=== PATIENT | female | born 1980 | race American Indian/Alaskan Native ===

== ENCOUNTER 2018-09-14 11:40 | Inpatient (IN) | payer OTHER ==
--- NOTE | 2018-09-14 11:56 | Emergency Department Report ---
Blank Doc - Documentation Documentation: 38 y o female presents with generallized burning constant abdominal pain x yes terday n/v and sweats labs,abd CT LMP: currently on
[2018-09-14 12:27] LABS: Hematocrit 34.3 % (30.3-42.9); Hemoglobin 11.7 gm/dl (10.1-14.3); Mean Corpuscular HGB Conc 34 % (30-34); Mean Corpuscular Volume 94 fl (79-97); Platelet Count 437 K/mm3 (140-440); Red Blood Count 3.65 M/mm3 (3.65-5.03); Red Cell Distribution Width 15.3 % (13.2-15.2)
[2018-09-14 12:41] LABS: BUN/Creatinine Ratio 21; Blood Urea Nitrogen 21 mg/dL (7-17); Calcium 8.7 mg/dL (8.4-10.2); Hemolysis Index 7
--- NOTE | 2018-09-14 14:15 | Cat Scan Report ---
CT ABDOMEN PELVIS WITHOUT CONTRAST: HISTORY: abdominal pain. COMPARISON: none. TECHNIQUE: Helical CT in 1.25mm intervals without IV contrast. Sagittal and coronal reconstructions. FINDINGS: Lung bases: There is minor segmental atelectasis in the right lower lobe. Liver: Normal. Biliary system: Normal. Pancreas: Normal. Spleen: Normal. Kidneys/ureters/bladder: Normal. Adrenal glands: Normal. Aorta: Normal. Intestines: No oral contrast was administered. There is no evidence for bowel obstruction. There is however moderate free fluid and free intraperitoneal air. Bowel perforation is suspected until proven otherwise. There appear to be multiple low collections in the pelvis which could represent early abscess formation. Appendix: Not confidently identified. Pelvic viscera: Poorly visualized secondary to the pelvic fluid collections and inflammation. No obvious abnormality. Ascites: None. Adenopathy: There are several borderline retroperitoneal lymph nodes which may be reactive in nature. No bulky adenopathy. Musculoskeletal: Intact. IMPRESSION: Moderate free air and fluid is identified in the abdomen concerning for bowel perforation. Possible early abscess formation in the pelvis. Recommend consultation with a surgeon. These findings were discussed with Dr. Elizondo in the emergency department at 1407 hrs.
[2018-09-14 14:22] LABS: Band Neutrophils # (Manual) 4.4 K/mm3; Basophils % (Manual) 0 % (0.0-1.8); Eosinophils % (Manual) 0 % (0.0-4.3); Monocytes % (Manual) 0 % (0.0-7.3); Total Cells Counted 100
[2018-09-14 14:23] LABS: Platelet Estimate Consistent w Auto; RBC Morphology Normal
[2018-09-14] MEDS ORDERED: DILAUDID IV STA (15:14)
[2018-09-14] MEDS ORDERED: NACL 0.9% 1000 ML IV ONE (15:14)
[2018-09-14] MEDS ORDERED: ZOFRAN IV ONE (15:21)
--- NOTE | 2018-09-14 15:21 | Emergency Department Report ---
ED General Adult HPI - General Chief complaint: Abdominal Pain Stated complaint: N/V/ABD PAIN Time Seen by Provider: 09/14/18 11:52 Source: patient, RN notes reviewed Mode of arrival: Wheelchair Limitations: Physical Limitation - History of Present Illness Initial comments: This is a 38-year-old female. The patient is not known to this provider sebastian mukherjee. The patient presents to the emergency room with a complaint of diffuse abdominal pain. The pain started approximately 2 weeks ago. It was initially suprapubic and in the bilateral lower quadrants. She reports that she was given antibiotics for a "urinary tract infection. She does not know antibiotics she was given. She reports that her pain really didn't get better. She reports having temporary dysuria, but her dysuria them resolved. Her abdominal pain is migratory, and now involving the entire abdominal region. It is sharp and aching. It increases with palpation. It decreases with rest. Question fever at home. Positive nausea and vomiting. Positive having normal bowel movements. No complaint of headache, neck pain, chest pain, ocular pain, oral discharge, focal extremity weakness or numbness. Patient never had pain like this before. -: Gradual Location: abdomen Severity scale (0 -10): 0 Quality: other Consistency: other Improves with: other Worsens with: other - Related Data Home Medications Medication Instructions Recorded Confirmed Last Taken Ciprofloxacin HCl [Ciprofloxacin 250 mg PO Q12H MDD FOR 5 DAYS 09/14/18 09/14/18 09/13/18 TAB] Lisinopril/Hydrochlorothiazide 1 tab PO QDAY 09/14/18 09/14/18 09/13/18 [Zestoretic 20-25 mg] metFORMIN [Glucophage] 500 mg PO BIDWM 09/14/18 09/14/18 09/13/18 Allergies Allergy/AdvReac Type Severity Reaction Status Date / Time No Known Allergies Allergy Unverified 09/14/18 11:54 ED Review of Systems ROS: Stated complaint: N/V/ABD PAIN Other details as noted in HPI Constitutional: fever, malaise, weakness Eyes: denies: eye discharge ENT: denies: epistaxis Respiratory: denies: cough Cardiovascular: denies: chest pain Gastrointestinal: abdominal pain, nausea, vomiting Genitourinary: dysuria Musculoskeletal: back pain Skin: denies: lesions Neurological: weakness Psychiatric: anxiety ED Past Medical Hx - Past Medical History Previous Medical History?: Yes Hx Hypertension: Yes Hx Diabetes: Yes - Surgical History Past Surgical History?: Yes Additional Surgical History: 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 - Social History Smoking Status: Never Smoker Substance Use Type: Alcohol - Medications Home Medications: Home Medications Medication Instructions Recorded Confirmed Last Taken Type Ciprofloxacin HCl [Ciprofloxacin 250 mg PO Q12H MDD FOR 5 DAYS 09/14/18 09/14/18 09/13/18 History TAB] Lisinopril/Hydrochlorothiazide 1 tab PO QDAY 09/14/18 09/14/18 09/13/18 History [Zestoretic 20-25 mg] metFORMIN [Glucophage] 500 mg PO BIDWM 09/14/18 09/14/18 09/13/18 History ED Physical Exam - General Limitations: Physical Limitation General appearance: alert, in distress, obese - Head Head exam: Present: atraumatic, normocephalic - Eye Eye exam: Present: normal appearance, EOMI - ENT ENT exam: Present: normal exam, normal orophraynx, mucous membranes moist, normal external ear exam - Neck Neck exam: Present: normal inspection, full ROM. Absent: tenderness, meningismus - Respiratory Respiratory exam: Present: normal lung sounds bilaterally. Absent: respiratory distress - Cardiovascular Cardiovascular Exam: Present: normal rhythm, tachycardia, normal heart sounds. Absent: systolic murmur, diastolic murmur, rubs, gallop - GI/Abdominal GI/Abdominal exam: Present: soft, tenderness, guarding, rebound. Absent: distended, pulsatile mass - Extremities Exam Extremities exam: Present: normal inspection, full ROM, other (2+ pulses noted in the bilateral upper, lower extremities. Compartments soft. No long bony tenderness. The pelvis is stable.). Absent: pedal edema, joint swelling, calf tenderness - Back Exam Back exam: Present: normal inspection - Neurological Exam Neurological exam: Present: alert, oriented X3, other (Extraocular movements intact. Tongue midline. No facial droop. Facial sensation intact to light touch in the V1, V2, V3 distribution bilaterally. 5 and 5 strength in 4 extremities.. Sensation is intact to light touch in 4 extremities.). Absent: motor sensory deficit - Psychiatric Psychiatric exam: Present: anxious - Skin Skin exam: Present: warm, dry, intact, normal color. Absent: rash ED Course Vital Signs 09/14/18 09/14/1819 11:52 12:43 14:20 Temperature 98.0 F 98.3 F Pulse Rate 114 H 107 H 124 H Respiratory 20 16 26 H Rate Blood Pressure 100/70 Blood Pressure 102/69 [Left] Blood Pressure 102/69 [Right] O2 Sat by Pulse 99 100 99 Oximetry 09/14/18 09/14/18 09/14/18 14:31 14:45 15:00 Temperature Pulse Rate 125 H 126 H 128 H Respiratory 51 H 51 H 54 H Rate Blood Pressure 120/81 120/81 115/75 Blood Pressure [Left] Blood Pressure [Right] O2 Sat by Pulse 98 97 93 Oximetry 09/14/18 09/14/18 09/14/18 15:15 15:31 15:45 Temperature Pulse Rate 127 H 128 H 127 H Respiratory 29 H 56 H 45 H Rate Blood Pressure 115/75 115/75 115/75 Blood Pressure [Left] Blood Pressure [Right] O2 Sat by Pulse 98 97 95 Oximetry 09/14/18 16:01 Temperature Pulse Rate 129 H Respiratory 29 H Rate Blood Pressure 114/74 Blood Pressure [Left] Blood Pressure [Right] O2 Sat by Pulse 95 Oximetry - Reevaluation(s) Reevaluation #1: 09/14/18 16:48 For initial diagnosis, including but not limited to: Perforation, obstruction, peritonitis, intra-abdominal abscess Assessment and plan: 38-year-old female with markedly tender abdomen, tachycardic, tachypnea, meets sepsis criteria. Patient resuscitated according to the sepsis pathway. CT scan of the abdomen and pelvis suggests free air with presumed pelvic abscesses. Discussed with general surgery on-call, Dr. Gipson, we have discussed the patient's history, physical, laboratory findings and CT scan findings, and I have requested emergent surgical consultation for evaluation. She indicates she will evaluate the patient. As per this hospital's policy, the patient will be admitted to the medical service, Dr. Aldana of the medical team to admit the patient. Discussed plan of care with patient and family who verbalized understanding. ED Medical Decision Making - Lab Data Result diagrams: 09/14/18 12:06 09/14/18 12:06 Vital Signs 09/14/18 09/14/18 09/14/18 11:52 12:43 14:20 Temperature 98.0 F 98.3 F Pulse Rate 114 H 107 H 124 H Respiratory 20 16 26 H Rate Blood Pressure 100/70 Blood Pressure 102/69 [Left] Blood Pressure 102/69 [Right] O2 Sat by Pulse 99 100 99 Oximetry 09/14/18 09/14/18 09/14/18 14:31 14:45 15:00 Temperature Pulse Rate 125 H 126 H 128 H Respiratory 51 H 51 H 54 H Rate Blood Pressure 120/81 120/81 115/75 Blood Pressure [Left] Blood Pressure [Right] O2 Sat by Pulse 98 97 93 Oximetry 09/14/18 09/14/18 09/14/18 15:15 15:31 15:45 Temperature Pulse Rate 127 H 128 H 127 H Respiratory 29 H 56 H 45 H Rate Blood Pressure 115/75 115/75 115/75 Blood Pressure [Left] Blood Pressure [Right] O2 Sat by Pulse 98 97 95 Oximetry 09/14/18 16:01 Temperature Pulse Rate 129 H Respiratory 29 H Rate Blood Pressure 114/74 Blood Pressure [Left] Blood Pressure [Right] O2 Sat by Pulse 95 Oximetry Lab Results 09/14/18 09/14/18 09/14/18 Range/Units 11:54 12:06 12:06 WBC 9.0 (4.5-11.0) K/mm3 RBC 3.65 (3.65-5.03) M/mm3 Hgb 11.7 (10.1-14.3) gm/dl Hct 34.3 (30.3-42.9) % MCV 94 (79-97) fl MCH 32 (28-32) pg MCHC 34 (30-34) % RDW 15.3 H (13.2-15.2) % Plt Count 437 (140-440) K/mm3 Add Manual Diff Complete Total Counted 100 Seg Neuts % (Manual) 39.0 L (40.0-70.0) % Band Neutrophils % 49.0 % Lymphocytes % (Manual) 9.0 L (13.4-35.0) % Reactive Lymphs % (Man) 0 % Monocytes % (Manual) 0 (0.0-7.3) % Eosinophils % (Manual) 0 (0.0-4.3) % Basophils % (Manual) 0 (0.0-1.8) % Metamyelocytes % 3.0 % Myelocytes % 0 % Promyelocytes % 0 % Blast Cells % 0 % Nucleated RBC % Not Reportable Seg Neutrophils # Man 3.5 (1.8-7.7) K/mm3 Band Neutrophils # 4.4 K/mm3 Lymphocytes # (Manual) 0.8 L (1.2-5.4) K/mm3 Abs React Lymphs (Man) 0.0 K/mm3 Monocytes # (Manual) 0.0 (0.0-0.8) K/mm3 Eosinophils # (Manual) 0.0 (0.0-0.4) K/mm3 Basophils # (Manual) 0.0 (0.0-0.1) K/mm3 Metamyelocytes # 0.3 K/mm3 Myelocytes # 0.0 K/mm3 Promyelocytes # 0.0 K/mm3 Blast Cells # 0.0 K/mm3 WBC Morphology Not Reportable Hypersegmented Neuts Not Reportable Hyposegmented Neuts Not Reportable Hypogranular Neuts Not Reportable Smudge Cells Not Reportable Toxic Granulation Not Reportable Toxic Vacuolation Not Reportable Dohle Bodies Not Reportable Pelger-Huet Anomaly Not Reportable Shaun Rods Not Reportable Platelet Estimate Consistent w auto Clumped Platelets Not Reportable Plt Clumps, EDTA Not Reportable Large Platelets Not Reportable Giant Platelets Not Reportable Platelet Satelliting Not Reportable Plt Morphology Comment Not Reportable RBC Morphology Normal Dimorphic RBCs Not Reportable Polychromasia Not Reportable Hypochromasia Not Reportable Poikilocytosis Not Reportable Anisocytosis Not Reportable Microcytosis Not Reportable Macrocytosis Not Reportable Spherocytes Not Reportable Pappenheimer Bodies Not Reportable Sickle Cells Not Reportable Target Cells Not Reportable Tear Drop Cells Not Reportable Ovalocytes Not Reportable Helmet Cells Not Reportable Miranda-Fairchild Bodies Not Reportable Sayre Rings Not Reportable [place] Cells Not Reportable Bite Cells Not Reportable Crenated Cell Not Reportable Elliptocytes Not Reportable Acanthocytes (Spur) Not Reportable Rouleaux Not Reportable Hemoglobin C Crystals Not Reportable Schistocytes Not Reportable Malaria parasites Not Reportable Clifford Bodies Not Reportable Hem Pathologist Commnt No Sodium 133 L (137-145) mmol/L Potassium 3.7 (3.6-5.0) mmol/L Chloride 93.3 L (98-107) mmol/L Carbon Dioxide 24 (22-30) mmol/L Anion Gap 19 mmol/L BUN 21 H (7-17) mg/dL Creatinine 1.0 (0.7-1.2) mg/dL Estimated GFR > 60 ml/min BUN/Creatinine Ratio 21 % Glucose 353 H (65-100) mg/dL POC Glucose 336 H (70-105) Lactic Acid (0.7-2.0) mmol/L Calcium 8.7 (8.4-10.2) mg/dL HCG, Qual (Negative) 09/14/18 09/14/18 Range/Units 12:06 15:20 WBC (4.5-11.0) K/mm3 RBC (3.65-5.03) M/mm3 Hgb (10.1-14.3) gm/dl Hct (30.3-42.9) % MCV (79-97) fl MCH (28-32) pg MCHC (30-34) % RDW (13.2-15.2) % Plt Count (140-440) K/mm3 Add Manual Diff Total Counted Seg Neuts % (Manual) (40.0-70.0) % Band Neutrophils % % Lymphocytes % (Manual) (13.4-35.0) % Reactive Lymphs % (Man) % Monocytes % (Manual) (0.0-7.3) % Eosinophils % (Manual) (0.0-4.3) % Basophils % (Manual) (0.0-1.8) % Metamyelocytes % % Myelocytes % % Promyelocytes % % Blast Cells % % Nucleated RBC % Seg Neutrophils # Man (1.8-7.7) K/mm3 Band Neutrophils # K/mm3 Lymphocytes # (Manual) (1.2-5.4) K/mm3 Abs React Lymphs (Man) K/mm3 Monocytes # (Manual) (0.0-0.8) K/mm3 Eosinophils # (Manual) (0.0-0.4) K/mm3 Basophils # (Manual) (0.0-0.1) K/mm3 Metamyelocytes # K/mm3 Myelocytes # K/mm3 Promyelocytes # K/mm3 Blast Cells # K/mm3 WBC Morphology Hypersegmented Neuts Hyposegmented Neuts Hypogranular Neuts Smudge Cells Toxic Granulation Toxic Vacuolation Dohle Bodies Pelger-Huet Anomaly Shaun Rods Platelet Estimate Clumped Platelets Plt Clumps, EDTA Large Platelets Giant Platelets Platelet Satelliting Plt Morphology Comment RBC Morphology Dimorphic RBCs Polychromasia Hypochromasia Poikilocytosis Anisocytosis Microcytosis Macrocytosis Spherocytes Pappenheimer Bodies Sickle Cells Target Cells Tear Drop Cells Ovalocytes Helmet Cells Miranda-Fairchild Bodies Sayre Rings [place] Cells Bite Cells Crenated Cell Elliptocytes Acanthocytes (Spur) Rouleaux Hemoglobin C Crystals Schistocytes Malaria parasites Clifford Bodies Hem Pathologist Commnt Sodium (137-145) mmol/L Potassium (3.6-5.0) mmol/L Chloride (98-107) mmol/L Carbon Dioxide (22-30) mmol/L Anion Gap mmol/L BUN (7-17) mg/dL Creatinine (0.7-1.2) mg/dL Estimated GFR ml/min BUN/Creatinine Ratio % Glucose (65-100) mg/dL POC Glucose (70-105) Lactic Acid 2.80 H* (0.7-2.0) mmol/L Calcium (8.4-10.2) mg/dL HCG, Qual Negative (Negative) - EKG Data -: EKG Interpreted by Hi EKG shows normal: sinus rhythm Rate: tachycardia - EKG Data 09/14/18 16:46 This is a sinus tachycardia, 100, normal axis, QTC within normal limits, there is atrial enlargement, this is an abnormal EKG, there is no endorsement of chest pain, this is not consistent with ST elevation myocardial infarction. - Radiology Data Radiology results: report reviewed, image reviewed Print Report Referring Physician: POLINA HALL Patient Name: BARBARA SLATER Date of : 1980 Sex: Female Report Date: 2018-09-14 Report Status: Finalized Findings [facility] [address] [place] [address] Cat Scan Report Signed Patient: BARBARA SLATER MR# : [id number] : 1980 Acct:[id number] Age/Sex: 38 / F ADM Date: 09/14/18 Loc: ED Attending Dr: Ordering Physician: JUDY WEAVER Date of Service: 09/14/18 Procedure(s): CT abdomen pelvis con Accession Number(s): [id number] cc: JUDY WEAVER CT ABDOMEN PELVIS WITHOUT CONTRAST: HISTORY: abdominal pain. COMPARISON: none. TECHNIQUE: Helical CT in 1.25mm intervals without IV contrast. Sagittal and coronal reconstructions. FINDINGS: Lung bases: There is minor segmental atelectasis in the right lower lobe. Liver: Normal. Biliary system: Normal. Pancreas: Normal. Spleen: Normal. Kidneys/ureters/bladder: Normal. Adrenal glands: Normal. Aorta: Normal. Intestines: No oral contrast was administered. There is no evidence for bowel obstruction. There is however moderate free fluid and free intraperitoneal air. Bowel perforation is suspected until proven otherwise. There appear to be multiple low collections in the pel vis which could represent early abscess formation. Appendix: Not confidently identified. Pelvic viscera: Poorly visualized secondary to the pelvic fluid collections and inflammation. No obvious abnormality. Ascites: None. Adenopathy: There are several borderline retroperitoneal lymph nodes which may be reactive in nature. No bulky adenopathy. Musculoskeletal: Intact. IMPRESSION: Moderate free air and fluid is identified in the abdomen concerning for bowel perforation. Possible early abscess formation in the pelvis. Recommend consultation with a surgeon. These findings were discussed with Dr. Elizondo in the emergency department at 1407 hrs. Critical Care Time: Yes Critical care time in (mins) excluding proc time.: 35 Critical care attestation.: If time is entered above; I have spent that time in minutes in the direct care of this critically ill patient, excluding procedure time. ED Disposition Clinical Impression: Perforated bowel, Peritonitis (acute) generalized Disposition: DC-09 OP ADMIT IP TO THIS HOSP Is pt being admited?: Yes Condition: Stable
--- NOTE | 2018-09-14 15:23 | History and Physical Report ---
History of Present Illness Chief complaint: My stomach hurts History of present illness: 38 YO Female with HTN, DM, Obesity presents to ED for evaluation. Pt states that she has experienced pain in her abdomen over the past 2 days with worsening symptoms over the past 1 day. Pt was seen by her PCP on the day prior to admission and treated with Antibiotic therapy for presumed infection. Pt reports worsening abdominal pain. Pt states that pain is currently 8/10, constant, worse with palpation, worse wit movement, relieved somewhat with nonmovement. EMS notified and upon arrival the patient was found to be in distress and transported to [facility]. Pt seen and evaluated in ED and underwent CT Abdomen/Pelvis which revealed free air with suspected perforation complicated by peritonitis. Surgery team consulted in ED. Pt initiated on IV antibiotic therapy and admitted to surgical floor. No prior admission for review. No listed medication at time of admission for reconciliation. Pt denies fever, chills, CP, Palpitations, Trauma, BRBPR, Productive cough, hemoptysis, ingestion of food/water from new/different sources, loose stools, skin rash, unintentional weight loss, night sweats, or recent ill contacts. Past History Past Medical History: diabetes, hypertension, other (Obesity) Past Surgical History: Other (Right Index Finger amputation) Social history: , lives with family. denies: smoking, alcohol abuse, prescription drug abuse Family history: diabetes, hypertension Medications and Allergies Allergies Allergy/AdvReac Type Severity Reaction Status Date / Time No Known Allergies Allergy Unverified 09/14/18 11:54 Active Meds: Active Medications Metronidazole (Flagyl 500 Mg/100 Ml) 500 mg in 100 mls @ 100 mls/hr IV NOW AYLEEN; Protocol Cefepime HCl (Maxipime/Ns 2 Gm/100 Ml) 2 gm in 100 mls @ 200 mls/hr IV NOW AYLEEN; Protocol Review of Systems Constitutional: no weight loss, no weight gain, no fever, no chills Ears, nose, mouth and throat: no ear pain, no ear discharge, no tinnitis, no decreased hearing, no nasal congestion, no nasal discharge Breasts: no change in shape, no swelling, no mass Cardiovascular: no chest pain, no orthopnea, no palpitations, no rapid/irregular heart beat, no syncope Respiratory: no cough, no cough with sputum, no excessive sputum, no hemoptysis, no shortness of breath Gastrointestinal: abdominal pain, no nausea, no vomiting, no diarrhea, no constipation, no change in bowel habits, no BRBPR, no melena Genitourinary Female: no pelvic pain, no flank pain, no menorrhagia, no dysuria, no urinary frequency, no urgency, no stress incontinence Rectal: no pain, no incontinence, no bleeding Musculoskeletal: no neck stiffness, no neck pain, no shooting arm pain, no low back pain, no shooting leg pain Integumentary: no rash, no pruritis, no redness, no sores, no wounds Neurological: no paralysis, no parathesias, no tingling, no seizures Psychiatric: no anxiety, no memory loss, no change in sleep habits, no sleep disturbances, no insomnia, no hypersomnia, no change in libido, no suicidal ideation, no disorientation Endocrine: no cold intolerance, no heat intolerance, no polyphagia, no excessive thirst, no polydipsia Hematologic/Lymphatic: no easy bruising, no easy bleeding Allergic/Immunologic: no urticaria, no allergic rhinitis, no wheezing Exam - Constitutional Vitals: Temp Pulse Resp BP Pulse Ox 98.2 F 125 H 51 H 120/81 98 09/14/18 12:43 09/14/18 14:31 09/14/18 14:31 09/14/18 14:31 09/14/18 14:31 General appearance: Present: mild distress - EENT Eyes: Present: PERRL ENT: hearing intact, clear oral mucosa - Neck Neck: Present: supple, normal ROM - Respiratory Respiratory effort: normal Respiratory: bilateral: CTA - Cardiovascular Heart Sounds: Present: S1 & S2. Absent: rub, click - Extremities Extremities: pulses symmetrical, No edema Peripheral Pulses: within normal limits - Abdominal General gastrointestinal: Present: soft, tender, distended, hypoactive bowel sounds. Absent: hepatomegaly, splenomegaly, mass, hernia Localized gastrointestinal: tender: diffuse, guarding: diffuse, rebound: diffuse Female genitourinary: Present: normal - Integumentary Integumentary: Present: clear, warm, dry - Musculoskeletal Musculoskeletal: gait normal, strength equal bilaterally - Psychiatric Psychiatric: appropriate mood/affect, intact judgment & insight - Neurologic Neurologic: CNII-XII intact, moves all extremities Results - Labs CBC & Chem 7: 09/14/18 12:06 09/14/18 12:06 Labs: Abnormal lab results 09/14/18 09/14/18 09/14/18 Range/Units 11:54 12:06 12:06 RDW 15.3 H (13.2-15.2) % Seg Neuts % (Manual) 39.0 L (40.0-70.0) % Lymphocytes % (Manual) 9.0 L (13.4-35.0) % Lymphocytes # (Manual) 0.8 L (1.2-5.4) K/mm3 Sodium 133 L (137-145) mmol/L Chloride 93.3 L (98-107) mmol/L BUN 21 H (7-17) mg/dL Glucose 353 H (65-100) mg/dL POC Glucose 336 H (70-105) Assessment and Plan - Patient Problems (1) Perforated bowel Current Visit: Yes Status: Acute Plan to address problem: Surgery consulted in ED, CT Abdomen pelvis, serial abdominal exam, pain control. IVF resuscitation, NPO, bowel rest, gastric decompression as per surgical team. (2) Peritonitis (acute) generalized Current Visit: Yes Status: Acute Plan to address problem: IV antibiotic therapy, surgery consulted in ED, CT Abdomen/Pelvis, serial abdominal exam, CBC, CMP (3) HTN (hypertension) Current Visit: Yes Status: Acute Qualifiers: Hypertension type: essential hypertension Qualified Code(s): I10 - Essential (primary) hypertension Plan to address problem: Monitor bp q shfit, supportive care, continue medical management. (4) Diabetes Current Visit: Yes Status: Acute Plan to address problem: ADA diet, insulin, accu check, hypoglycemia protocol (5) DVT prophylaxis Current Visit: Yes Status: Acute Plan to address problem: SCD to BLE while in bed, prophylactic heparin postoperatively.
[2018-09-14] MEDS ORDERED: PROVENTIL IH PRN (15:57)
[2018-09-14] MEDS ORDERED: MORPHINE IV PRN (15:57)
[2018-09-14] MEDS ORDERED: D50W (25GM) Syringe IV PRN (15:59)
[2018-09-14] MEDS ORDERED: FLAGYL 500 MG/100 ML 500 MG/100 ML BAG IV SCH (16:00)
--- NOTE | 2018-09-14 16:46 | Consultation ---
History of Present Illness Consult date: 09/14/18 Reason for consult: abdominal pain Chief complaint: abdominal pain that started two weeks ago. - History of present illness History of present illness: 38 year old female presented to ER with worsening abdominal pain. She says it started about two weeks ago and was localized to her super-pubic area. At the time she had dysuria and went to the doctor thinking she had a UTI. She said all they were able to find was glucose in her urine. She went home and said over the next week or so the pain got progressively worse, and only partially subsided when she smoked marijuana. She returned to the doctor yesterday and they placed her on antibiotics saying that she had an elevated WBC. She has been having bowel movements and only vomited once this morning. The pain is 10/10 and all over currently. she has never had this pain and denies a history of gastric ulcer, frequent NSAID use, cocaine use, cigarette smoking. She had a CT scan done today that showed free fluid and air consistent with bowel perforation. Past History Past Medical History: diabetes, hypertension, other (Obesity) Past Surgical History: Other (Right Index Finger amputation) Social history: , lives with family, other (marijuana use). denies: smoking, alcohol abuse, prescription drug abuse Family history: cancer, diabetes, hypertension Medications and Allergies Allergies Allergy/AdvReac Type Severity Reaction Status Date / Time No Known Allergies Allergy Unverified 09/14/18 11:54 Home Medications Medication Instructions Recorded Confirmed Last Taken Type Ciprofloxacin HCl [Ciprofloxacin 250 mg PO Q12H MDD FOR 5 DAYS 09/14/18 09/14/18 09/13/18 History TAB] Lisinopril/Hydrochlorothiazide 1 tab PO QDAY 09/14/18 09/14/18 09/13/18 History [Zestoretic 20-25 mg] metFORMIN [Glucophage] 500 mg PO BIDWM 09/14/18 09/14/18 09/13/18 History Active Meds: Active Medications Albuterol (Proventil) 2.5 mg IH Q3HRT PRN PRN Reason: Shortness Of Breath Dextrose (D50w (25gm) Syringe) 50 ml IV PRN PRN PRN Reason: Hypoglycemia Heparin Sodium (Porcine) (Heparin) 5,000 unit SUB-Q Q12HR AYLEEN Metronidazole (Flagyl 500 Mg/100 Ml) 500 mg in 100 mls @ 100 mls/hr IV NOW AYLEEN; Protocol Last Admin: 09/14/18 15:47 Dose: 100 mls/hr Documented by: Cefepime HCl (Maxipime/Ns 2 Gm/100 Ml) 2 gm in 100 mls @ 200 mls/hr IV NOW AYLEEN; Protocol Sodium Chloride (Nacl 0.9% 1000 Ml) 2,000 mls @ 125 mls/hr IV DIRECT AYLEEN Cefepime HCl (Maxipime/Ns 2 Gm/100 Ml) 2 gm in 100 mls @ 200 mls/hr IV Q8HR AYLEEN; Protocol Metronidazole (Flagyl 500 Mg/100 Ml) 500 mg in 100 mls @ 100 mls/hr IV Q8HR AYLEEN; Protocol Insulin Human Lispro (Humalog) 0 unit SUB-Q Q6HR AYLEEN; Protocol Miscellaneous Medication (Lisinopril/Hydrochlorothiazide [Zestoretic 20-25 Mg]) 1 tab PO QDAY AYLEEN Morphine Sulfate (Morphine) 2 mg IV Q4H PRN PRN Reason: Pain, Moderate (4-6) Sodium Chloride (Sodium Chloride Flush Syringe 10 Ml) 10 ml IV BID AYLEEN Sodium Chloride (Sodium Chloride Flush Syringe 10 Ml) 10 ml IV PRN PRN PRN Reason: LINE FLUSH Review of Systems - Constitutional poor appetite Exam Vital Signs Temp Pulse Resp BP Pulse Ox 98.0 F 114 H 20 100/70 99 09/14/18 11:52 09/14/18 11:52 09/14/18 11:52 09/14/18 11:52 09/14/18 11:52 - General physical appearance Positive: moderate distress - Respiratory Positive: normal respiratory effort - Extremities Extremities: no ischemia - Abdomen Abdomen: Present: soft, tender, distended, guarding, other (generalized tenderness to palpation) Hernia: none - Neurologic Neurologic: alert and oriented to time, place and person, motor strength and sensation are grossly intact - Psychiatric Psychiatric: appropriate mood/affect Results - Labs 09/14/18 12:06 09/14/18 12:06 Abnormal lab results 09/14/18 09/14/18 09/14/18 Range/Units 11:54 12:06 12:06 RDW 15.3 H (13.2-15.2) % Seg Neuts % (Manual) 39.0 L (40.0-70.0) % Lymphocytes % (Manual) 9.0 L (13.4-35.0) % Lymphocytes # (Manual) 0.8 L (1.2-5.4) K/mm3 Sodium 133 L (137-145) mmol/L Chloride 93.3 L (98-107) mmol/L BUN 21 H (7-17) mg/dL Glucose 353 H (65-100) mg/dL POC Glucose 336 H (70-105) Lactic Acid (0.7-2.0) mmol/L 09/14/18 Range/Units 15:20 RDW (13.2-15.2) % Seg Neuts % (Manual) (40.0-70.0) % Lymphocytes % (Manual) (13.4-35.0) % Lymphocytes # (Manual) (1.2-5.4) K/mm3 Sodium (137-145) mmol/L Chloride (98-107) mmol/L BUN (7-17) mg/dL Glucose (65-100) mg/dL POC Glucose (70-105) Lactic Acid 2.80 H* (0.7-2.0) mmol/L Diabetes panel 09/14/18 Range/Units 12:06 Sodium 133 L (137-145) mmol/L Potassium 3.7 (3.6-5.0) mmol/L Chloride 93.3 L (98-107) mmol/L Carbon Dioxide 24 (22-30) mmol/L BUN 21 H (7-17) mg/dL Creatinine 1.0 (0.7-1.2) mg/dL Glucose 353 H (65-100) mg/dL Calcium 8.7 (8.4-10.2) mg/dL Calcium panel 09/14/18 Range/Units 12:06 Calcium 8.7 (8.4-10.2) mg/dL Pituitary panel 09/14/18 Range/Units 12:06 Sodium 133 L (137-145) mmol/L Potassium 3.7 (3.6-5.0) mmol/L Chloride 93.3 L (98-107) mmol/L Carbon Dioxide 24 (22-30) mmol/L BUN 21 H (7-17) mg/dL Creatinine 1.0 (0.7-1.2) mg/dL Glucose 353 H (65-100) mg/dL Calcium 8.7 (8.4-10.2) mg/dL Adrenal panel 09/14/18 Range/Units 12:06 Sodium 133 L (137-145) mmol/L Potassium 3.7 (3.6-5.0) mmol/L Chloride 93.3 L (98-107) mmol/L Carbon Dioxide 24 (22-30) mmol/L BUN 21 H (7-17) mg/dL Creatinine 1.0 (0.7-1.2) mg/dL Glucose 353 H (65-100) mg/dL Calcium 8.7 (8.4-10.2) mg/dL - Imaging CT scan - abdomen: pending, image reviewed, other (CT scan with free fluid and air consistent with bowel perforation) Assessment and Plan 1. peritonitis- bowel perforation? will take for abdominal exploration today, in the meantime aggressive IV fluid hydration ,abx. Pt is consented. 2. diabetes, hyperglycemia insulin therapy and hydration
[2018-09-14] MEDS ORDERED: MAXIPIME/NS 2 GM/100 ML 2 GM/100 ML BAG IV SCH ×2 (17:00→22:00)
--- NOTE | 2018-09-14 17:08 | Anesthesia Consultation ---
Anesthesia Consult and Med Hx Date of service: 09/14/18 - Airway Anesthetic Teeth Evaluation: Good ROM Head & Neck: Adequate Mental/Hyoid Distance: Adequate Mallampati Class: Class II Intubation Access Assessment: Probably Good - Pulmonary Exam CTA: Yes - Cardiac Exam Cardiac Exam: RRR - Pre-Operative Health Status ASA Pre-Surgery Classification: ASA3, Emergency Proposed Anesthetic Plan: General - Pulmonary Hx Smoking: Yes (Marijuana) - Cardiovascular System Hx Hypertension: Yes - Endocrine Hx Non-Insulin Dependent Diabetes: Yes - Other Systems Hx Alcohol Use: Yes Hx Substance Use: Yes (marijuana ) Hx Obesity: Yes
--- NOTE | 2018-09-14 17:11 | Anesthesia Day of Surgery ---
Anesthesia Day of Surgery - Day of Surgery Patient Examined: Yes Patient H&P Reviewed: Yes Patient is NPO: No (2-3 glasses of water at 1400 to 1500)
[2018-09-14] MEDS ORDERED: MORPHINE ONE (17:26)
[2018-09-14] MEDS ORDERED: ZOFRAN IV PRN (18:18)
[2018-09-14] MEDS: HumaLOG SUB-Q SCH (19:09)
[2018-09-14] MEDS: NACL 0.9% 1000 ML 2,000 ML IV SCH (19:10)
[2018-09-14] MEDS ORDERED: MARCAINE-EPI 0.5%-1:200,000 INFILTRATI ONE ×2 (19:39→21:15)
[2018-09-14] MEDS ORDERED: XYLOCAINE 1% 20 mL ONE (19:39)
[2018-09-14] MEDS ORDERED: DIPRIVAN 10 MG/ML IV ONE (19:41)
[2018-09-14] MEDS ORDERED: ZEMURON IV ONE ×2 (19:42→23:12)
[2018-09-14] MEDS ORDERED: SUBLIMAZE ONE ×2 (19:44→23:40)
[2018-09-14] MEDS ORDERED: HumuLIN R ONE ×2 (20:26→23:47)
[2018-09-14] MEDS ORDERED: ZOSYN/NS 4.5GM/100ML 4.5 GM/100 ML VIAL IV ONE (20:45)
[2018-09-14] MEDS ORDERED: ALBURX 25% (ALBUMIN) IV ONE (21:13)
[2018-09-14] MEDS ORDERED: Vasostrict ONE (21:14)
[2018-09-14] MEDS ORDERED: XYLOCAINE 1% 20 mL INFILTRATI ONE (21:15)
[2018-09-14] MEDS ORDERED: NACL 0.9% IR ONE (21:16)
[2018-09-14] MEDS ORDERED: NACL P/F VIAL (10 ML) 10 ML ONE (21:53)
[2018-09-14] MEDS ORDERED: BACITRACIN ONE (21:54)
[2018-09-14] MEDS ORDERED: NACL P/F VIAL (10 ML) IV ONE (21:57)
[2018-09-14] MEDS ORDERED: SODIUM CHLORIDE FLUSH SYRINGE 10 ML IV SCH (22:00)
[2018-09-14] MEDS ORDERED: BACITRACIN IR ONE (22:22)
[2018-09-14] MEDS ORDERED: BRIDION IV ONE (23:06)
[2018-09-14] MEDS ORDERED: XYLOCAINE MPF 2% ONE (23:12)
[2018-09-14] MEDS: SUBLIMAZE IV PRN ×2 (23:40→23:55)
[2018-09-14] MEDS ORDERED: HumuLIN R IV ONE (23:45)
--- NOTE | 2018-09-14 23:54 | Operative Report ---
Operative Report Operative Report: DATE: 09/14/2018 SURGEON: BRISEIDA AYALA MD CO-SURGEON: ALFREDO HARRELL DO PROCEDURE: EXPLORATORY LAPAROTOMY, ABDOMINAL WASH OUT AND DRAIN PLACEMENT PRE-OP DX: PERITONITIS, PERFORATED VISCOUS POST-OP DX: PURULENT PERITONITIS, HINCHE STAGE 3 DIVERTICULITIS FINDINGS: FREE PURULENT PERITONITIS WITH PELVIC ABSCESS CAVITY, NO ACTIVE PERFORATION INDICATION: 38 YO FEMALE PRESENTED TO ED WITH A 2 WEEK HX OF WORSENING ABDOMINAL PAIN. CT SCAN SHOWED FREE AIR AND FLUID IN THE ABDOMEN C/W BOWEL PERFORATION. SHE WAS CONSENTED AND URGENTLY TAKEN TO THE OR AFTER INFORMED CONSENT WAS OBTAINED. DETAILS: PT WAS TAKEN TO THE OR AND GENERAL ANESTHESIA WAS INDUCED WITH ENDOTRACHEAL INTUBATION. SCDS WERE PLACED, A WALKER CATHETER WAS INSERTED UNDER STERILE CONDITIONS, AND HER ABDOMEN WAS PREPPED AND DRAPED IN STERILE FASHION AFTER HER ARMS WERE TUCKED BY HER SIDED AND ALL PRESSURE POINTS PADDED. AN ATTEMPT WAS MADE TO INSUFLATE THE ABDOMEN FOR DIAGNOSTIC LAPAROSCOPY, BUT WE WERE UNSUCCESSFUL AFTER SEVERAL FAILED PASSES OF THE VERRESS NEEDLE, IN BOTH PALMERS POINT AND AT THE UMBILICUS. AT ONE POINT MURKY FLUID WAS SEEN IN THE VERRESS NEEDLE. IT WAS DECIDED AT THAT POINT TO CONVERT TO OPEN. A 10 BLADE SCALPEL WAS USED TO MAKE A VERTICAL MIDLINE INCISION. ELECTROCAUTERY WAS USED DOWN TO THE FASCIA. SCISSORS WERE USED TO ENTER THE PERITONEUM. THE INCISION WAS EXTENDED A COUPLE CENTIMETERS BELOW THE XIPHOID AND EXTENDED TO THE SUPRA-PUBIC AREA. IT WAS NOTED THAT THE OMENTUM WAS CAKED AROUND THE SMALL BOWEL, AND THERE WAS OVER A LITER OF FREE PURULENT FLUID THAT WAS ASPIRATED AND A CULTURE WAS TAKEN. THE OMENTUM AND TRANSVERSE COLON WERE LIFTED CEPHALED AND THERE WAS NOTED TO BE A LARGE ABSCESS CAVITY IN THE PELVIS BETWEEN THE RECTUM AND THE BLADDER. THE PROXIMAL RECTUM, SIGMOID COLON, CECUM, APPENDIX, AND TERMINAL ILEUM WERE EXAMINED AND FOUND TO BE SOFT, INTACT, AND FREE OF PERFORATION, CONSISTENT WITH HEATHY TISSUE. TO LOOK FOR A PERFORATION THAT MAY HAVE BEEN SMALL AND TUCKED BEHIND SOME MATTED INFLAMMATORY TISSUE, A WALKER CATHETER WAS INSERTED IN THE RECTUM. THE BALLOON WAS FULLY INFLATED AND AIR WAS INJECTED INTO THE RECTUM AND SIGMOID COLON AFTER SALINE FILLED THE PELVIC CAVITY. THERE WERE NO BUBBLES SEEN IN THE SALINE, INDICATING NO LARGE OPEN DEFECT. AT THIS POINT IT WAS DECIDED TO IRRIGATE THE ABDOMINAL CAVITY WITH WARM SALINE MIXED WITH BACITRACIN, AND A DRAIN WAS PLACED IN THE PELVIS AND EXITED OUT OF THE RIGHT SIDE. THE FASCIA WAS CLOSED WITH A RUNNING #1 PDS, AND LOOSE KAY AT THE SKIN WITH PLAIN PACKING IN BETWEEN THE KAY. AN NGT WAS INSERTED AND CONFIRMED IN GOOD POSITION PRIOR TO CLOSING. PATIENT WAS AWOKEN, EXTUBATED AND TAKEN TO RECOVERY IN STABLE CONDITION. ALL COUNTS WERE CORRECT. EBL: 50CC COMPLICATIONS: NONE IMMEDIATE ANESTHESIA: GETA
[2018-09-15] MEDS ORDERED: NACL 0.9% 1000 ML 1,000 ML ONE (00:08)
[2018-09-15] MEDS: SUBLIMAZE IV PRN (00:20)
[2018-09-15] MEDS ORDERED: SUBLIMAZE ONE (00:21)
[2018-09-15 03:08] LABS: Hemoglobin 10.9 gm/dl (10.1-14.3); Mean Corpuscular HGB Conc 32 % (30-34); Mean Corpuscular Volume 97 fl (79-97); Platelet Count 399 K/mm3 (140-440); Red Cell Distribution Width 15.7 % (13.2-15.2)
[2018-09-15 03:41] LABS: Alanine Aminotransferase 169 units/L (7-56); BUN/Creatinine Ratio 21; Blood Urea Nitrogen 19 mg/dL (7-17); Calcium 6.8 mg/dL (8.4-10.2); Hemolysis Index 0
[2018-09-15 04:42] LABS: Band Neutrophils # (Manual) 5.5 K/mm3; Basophils % (Manual) 0 % (0.0-1.8); Eosinophils % (Manual) 0 % (0.0-4.3); Myelocytes # (Manual) 0.2 K/mm3; Total Cells Counted 100
[2018-09-15 04:48] LABS: Crenated RBC 1+; Dohle Bodies 1+
[2018-09-15 04:49] LABS: Large Platelets 1+
[2018-09-15 04:50] LABS: Anisocytosis 1+; Platelet Clumps Few; Platelet Estimate Consistent w Auto
--- NOTE | 2018-09-15 06:53 | Post Anesthesia Evaluation ---
- Post Anesthesia Evaluation Patient Participated: Yes Airway Patent: Yes Stable Respiratory Function: Yes Nausea/Vomiting: No Temp > 96.8F: Yes Pain Manageable: Yes Adequeate Hydration: Yes Anesthesia Complications: No Block Receding Appropriately: Not Applicable Patient on Ventilator: No
[2018-09-15] MEDS ORDERED: TORADOL IV PRN (07:25)
[2018-09-15] MEDS: HumaLOG SUB-Q SCH ×3 (08:33→18:31)
[2018-09-15] MEDS: FLAGYL 500 MG/100 ML 500 MG/100 ML BAG IV SCH ×3 (08:36→21:30)
[2018-09-15] MEDS ORDERED: NACL 0.9% 1000 ML 1,000 ML IV ONE (09:30)
[2018-09-15] MEDS ORDERED: HCTZ PO SCH (10:00)
[2018-09-15] MEDS ORDERED: NON-FORMULARY (Lisinopril/Hydrochlorothiazide [Zestoretic 20-25 Mg] 1 TAB) PO SCH (10:00)
[2018-09-15] MEDS ORDERED: ZESTRIL PO SCH (10:00)
[2018-09-15] MEDS: MORPHINE IV PRN ×2 (10:22→21:25)
[2018-09-15] MEDS: ZOSYN/NS 4.5GM/100ML 4.5 GM/100 ML VIAL IV SCH ×3 (11:12→21:31)
--- NOTE | 2018-09-15 11:55 | Progress Note ---
Assessment and Plan A: POD#1 s/p ex lap with abdominal washout for purulent peritonitis secondary to perforated diverticulitis. stable, afebrile. persistent tachycardia likely secondary to SIRS. continue abx, hydration, NGT uncontrolled hyperglycemia and diabetes. continue insulin per primary. advise patient she will likely need more aggressive diabetes management upon discharge. Subjective Date of service: 09/15/18 Patient Reports: Positive: pain is less (no acute events overnight) Objective Vital Signs - 12hr 09/14/18 09/15/18 09/15/18 23:55 00:00 00:15 Temperature Pulse Rate 126 H 128 H Respiratory 16 17 21 Rate Blood Pressure 121/78 124/85 O2 Sat by Pulse 95 97 Oximetry 09/15/18 09/15/18 09/15/18 00:20 00:30 00:40 Temperature Pulse Rate 125 H Respiratory 17 18 17 Rate Blood Pressure 135/86 O2 Sat by Pulse 95 Oximetry 09/15/18 09/15/18 00:55 04:00 Temperature 98.6 F Pulse Rate Respiratory 15 Rate Blood Pressure O2 Sat by Pulse Oximetry - General physical appearance well developed, no distress - Respiratory normal expansion, normal respiratory effort - Abdomen soft, other (obese, dressing c/d/i, appropriately tender to palpation, QUYEN drain sero-sanguinous) - Labs 09/15/18 02:30 09/15/18 02:30 Diabetes panel 09/14/18 09/15/18 Range/Units 12:06 02:30 Sodium 133 L 141 D (137-145) mmol/L Potassium 3.7 3.6 (3.6-5.0) mmol/L Chloride 93.3 L 108.3 H (98-107) mmol/L Carbon Dioxide 24 17 L D (22-30) mmol/L BUN 21 H 19 H (7-17) mg/dL Creatinine 1.0 0.9 (0.7-1.2) mg/dL Glucose 353 H 217 H (65-100) mg/dL Calcium 8.7 6.8 L D (8.4-10.2) mg/dL AST 322 H (5-40) units/L ALT 169 H (7-56) units/L Alkaline Phosphatase 67 (35-129) units/L Total Protein 5.4 L (6.3-8.2) g/dL Albumin 2.0 L (3.9-5) g/dL Calcium panel 09/14/18 09/15/18 Range/Units 12:06 02:30 Calcium 8.7 6.8 L D (8.4-10.2) mg/dL Albumin 2.0 L (3.9-5) g/dL Pituitary panel 09/14/18 09/15/18 Range/Units 12:06 02:30 Sodium 133 L 141 D (137-145) mmol/L Potassium 3.7 3.6 (3.6-5.0) mmol/L Chloride 93.3 L 108.3 H (98-107) mmol/L Carbon Dioxide 24 17 L D (22-30) mmol/L BUN 21 H 19 H (7-17) mg/dL Creatinine 1.0 0.9 (0.7-1.2) mg/dL Glucose 353 H 217 H (65-100) mg/dL Calcium 8.7 6.8 L D (8.4-10.2) mg/dL Adrenal panel 09/14/18 09/15/18 Range/Units 12:06 02:30 Sodium 133 L 141 D (137-145) mmol/L Potassium 3.7 3.6 (3.6-5.0) mmol/L Chloride 93.3 L 108.3 H (98-107) mmol/L Carbon Dioxide 24 17 L D (22-30) mmol/L BUN 21 H 19 H (7-17) mg/dL Creatinine 1.0 0.9 (0.7-1.2) mg/dL Glucose 353 H 217 H (65-100) mg/dL Calcium 8.7 6.8 L D (8.4-10.2) mg/dL Total Bilirubin 3.30 H (0.1-1.2) mg/dL AST 322 H (5-40) units/L ALT 169 H (7-56) units/L Alkaline Phosphatase 67 (35-129) units/L Total Protein 5.4 L (6.3-8.2) g/dL Albumin 2.0 L (3.9-5) g/dL
[2018-09-15 12:02] LABS: Hematocrit 31.2 % (30.3-42.9); Mean Corpuscular HGB Conc 32 % (30-34); Mean Corpuscular Volume 97 fl (79-97); Platelet Count 381 K/mm3 (140-440); Red Blood Count 3.21 M/mm3 (3.65-5.03)
[2018-09-15 12:28] LABS: BUN/Creatinine Ratio 26; Blood Urea Nitrogen 18 mg/dL (7-17); Hemolysis Index 10
[2018-09-15 12:32] LABS: Calcium 5.3 mg/dL (8.4-10.2)
[2018-09-15 13:00] LABS: Anisocytosis 1+; Band Neutrophils # (Manual) 13.8 K/mm3; Basophils % (Manual) 0 % (0.0-1.8); Eosinophils % (Manual) 0 % (0.0-4.3); Poikilocytosis Few; Total Cells Counted 100
[2018-09-15 13:01] LABS: Burr Cells 1+; Platelet Estimate Consistent w Auto; Target Cells Rare
[2018-09-15] MEDS ORDERED: CALCIUM GLUCONATE 2,000 MG in NACL 0.9% 100 ML IV ONE (13:05)
[2018-09-15] MEDS: TORADOL IV SCH ×2 (13:39→18:30)
[2018-09-15] MEDS: ATIVAN IV PRN (13:40)
[2018-09-15] MEDS: CATAPRES-TTS PATCH TD SCH (16:26)
--- NOTE | 2018-09-15 17:40 | Progress Note ---
Assessment and Plan Purulent peritonitis with bowel perforation - due to perforated diverticulitis - Status post exploratory laparotomy with ABDOMINAL WASH OUT AND DRAIN PLACEMENT - Continue iv antibiotics, IV pain medications, keep nothing by mouth, continue IV fluids Sepsis due to peritonitis and bowel perforation, present on admission - Continue IV antibiotics, follow surgical culture Diabetes mellitus type 2 uncontrolled - SSI every 6 hour, check A1c Hypertension, place on clonidine patch and labetalol IV as needed Hypocalcemia, replete calcium, corrected calcium was 6.9 Hypoalbuminemia, due to poor oral intake and sepsis - Continue to monitor and treat underlying condition Hypocalcemia, replete and monitor, check for magnesium level DVT prophylaxis, Lovenox Brief History: 38 YO Female with HTN, DM, Obesity presents to ED by EMS for evaluation of abdomen over the past 2 days with worsening symptoms over the past 1 day. Pt seen and evaluated in ED and underwent CT Abdomen/Pelvis which revealed free air with suspected perforation complicated by peritonitis. Surgery team consulted in ED and emergently taken to the warmer. Pt initiated on IV antibiotic therapy and admitted to [facility] [place] Radiological data: Abdominal pelvis CT: Moderate free air and fluid is identified in the abdomen concerning for bowel perforation. Possible early abscess formation in the pelvis. Recommend consultation with a surgeon. Hospitalist Physical exam: GENERAL: well-developed and obese -[place] female lying on bed appeared to be in no discomfort. HEENT: Normocephalic. Atraumatic. No conjunctival congestion or icterus. Patient has moist mucous membranes. NECK: Supple. Trachea midline. CHEST/LUNGS: Clear to auscultated bilaterally, breathing nonlabored. No wheezes crackles or rhonchi. HEART/CARDIOVASCULAR: Regular in rate and rhythm. S1 and S2 positive. ABDOMEN: Abdomen is soft, tender, surgical dressing on place. Patient has hyperactive bowel sounds. SKIN: There is no rash. Warm and dry. NEURO: No focal motor deficit. Follows command. MUSCULOSKELETAL: No joint effusion or tenderness. EXTRIMITY: No edema, no cyanosis or clubbing. PSYCH: Cooperative. Subjective Date of service: 09/15/18 Interval history: Patient seen and examined. Medical records and medication list reviewed. No acute event overnight noted by the RN. Patient denies any chest pain or difficulty breathing. Patient wants to eat. States that abdominal pain is tolerable Discussed plan of care at bedside with patient. Objective - Constitutional Vitals: Vital Signs - 12hr 09/15/18 16:26 Pulse Rate 122 H Blood Pressure 131/91 - Labs CBC & Chem 7: 09/16/18 03:33 09/16/18 03:33 Labs: Abnormal lab results 09/14/18 09/14/18 09/14/18 Range/Units 18:53 20:26 21:53 WBC (4.5-11.0) K/mm3 RBC (3.65-5.03) M/mm3 Hgb (10.1-14.3) gm/dl RDW (13.2-15.2) % Seg Neuts % (Manual) (40.0-70.0) % Lymphocytes % (Manual) (13.4-35.0) % Lymphocytes # (Manual) (1.2-5.4) K/mm3 Monocytes # (Manual) (0.0-0.8) K/mm3 Potassium (3.6-5.0) mmol/L Chloride (98-107) mmol/L Carbon Dioxide (22-30) mmol/L BUN (7-17) mg/dL Glucose (65-100) mg/dL POC Glucose 360 H 330 H 276 H (70-105) Hemoglobin A1c (4-6) % Lactic Acid (0.7-2.0) mmol/L Calcium (8.4-10.2) mg/dL Total Bilirubin (0.1-1.2) mg/dL AST (5-40) units/L ALT (7-56) units/L Total Protein (6.3-8.2) g/dL Albumin (3.9-5) g/dL 09/14/18 09/15/18 09/15/18 Range/Units 23:49 00:46 01:06 WBC (4.5-11.0) K/mm3 RBC (3.65-5.03) M/mm3 Hgb (10.1-14.3) gm/dl RDW (13.2-15.2) % Seg Neuts % (Manual) (40.0-70.0) % Lymphocytes % (Manual) (13.4-35.0) % Lymphocytes # (Manual) (1.2-5.4) K/mm3 Monocytes # (Manual) (0.0-0.8) K/mm3 Potassium (3.6-5.0) mmol/L Chloride (98-107) mmol/L Carbon Dioxide (22-30) mmol/L BUN (7-17) mg/dL Glucose (65-100) mg/dL POC Glucose 275 H 239 H (70-105) Hemoglobin A1c (4-6) % Lactic Acid 3.10 H* (0.7-2.0) mmol/L Calcium (8.4-10.2) mg/dL Total Bilirubin (0.1-1.2) mg/dL AST (5-40) units/L ALT (7-56) units/L Total Protein (6.3-8.2) g/dL Albumin (3.9-5) g/dL 09/15/18 09/15/18 09/15/18 Range/Units 02:30 02:30 04:51 WBC 17.7 H (4.5-11.0) K/mm3 RBC 3.50 L (3.65-5.03) M/mm3 Hgb (10.1-14.3) gm/dl RDW 15.7 H (13.2-15.2) % Seg Neuts % (Manual) (40.0-70.0) % Lymphocytes % (Manual) (13.4-35.0) % Lymphocytes # (Manual) (1.2-5.4) K/mm3 Monocytes # (Manual) 0.9 H (0.0-0.8) K/mm3 Potassium (3.6-5.0) mmol/L Chloride 108.3 H (98-107) mmol/L Carbon Dioxide 17 L D (22-30) mmol/L BUN 19 H (7-17) mg/dL Glucose 217 H (65-100) mg/dL POC Glucose (70-105) Hemoglobin A1c (4-6) % Lactic Acid 2.30 H* (0.7-2.0) mmol/L Calcium 6.8 L D (8.4-10.2) mg/dL Total Bilirubin 3.30 H (0.1-1.2) mg/dL AST 322 H (5-40) units/L ALT 169 H (7-56) units/L Total Protein 5.4 L (6.3-8.2) g/dL Albumin 2.0 L (3.9-5) g/dL 06/09/15/18 09/15/18 Range/Units 06:39 11:48 11:48 WBC 21.3 H (4.5-11.0) K/mm3 RBC 3.21 L (3.65-5.03) M/mm3 Hgb 10.0 L (10.1-14.3) gm/dl RDW 16.0 H (13.2-15.2) % Seg Neuts % (Manual) 27.0 L (40.0-70.0) % Lymphocytes % (Manual) 3.0 L (13.4-35.0) % Lymphocytes # (Manual) 0.6 L (1.2-5.4) K/mm3 Monocytes # (Manual) 0.9 H (0.0-0.8) K/mm3 Potassium 3.3 L (3.6-5.0) mmol/L Chloride 115.1 H (98-107) mmol/L Carbon Dioxide 13 L (22-30) mmol/L BUN 18 H (7-17) mg/dL Glucose 207 H (65-100) mg/dL POC Glucose 247 H (70-105) Hemoglobin A1c (4-6) % Lactic Acid (0.7-2.0) mmol/L Calcium 5.3 L* D (8.4-10.2) mg/dL Total Bilirubin (0.1-1.2) mg/dL AST (5-40) units/L ALT (7-56) units/L Total Protein (6.3-8.2) g/dL Albumin (3.9-5) g/dL 09/15/18 09/15/18 Range/Units 12:32 Unknown WBC (4.5-11.0) K/mm3 RBC (3.65-5.03) M/mm3 Hgb (10.1-14.3) gm/dl RDW (13.2-15.2) % Seg Neuts % (Manual) (40.0-70.0) % Lymphocytes % (Manual) (13.4-35.0) % Lymphocytes # (Manual) (1.2-5.4) K/mm3 Monocytes # (Manual) (0.0-0.8) K/mm3 Potassium (3.6-5.0) mmol/L Chloride (98-107) mmol/L Carbon Dioxide (22-30) mmol/L BUN (7-17) mg/dL Glucose (65-100) mg/dL POC Glucose 268 H (70-105) Hemoglobin A1c 10.3 H (4-6) % Lactic Acid (0.7-2.0) mmol/L Calcium (8.4-10.2) mg/dL Total Bilirubin (0.1-1.2) mg/dL AST (5-40) units/L ALT (7-56) units/L Total Protein (6.3-8.2) g/dL Albumin (3.9-5) g/dL
[2018-09-15] MEDS: KCL 10MEQ/100ML 10 MEQ/100 ML BAG IV SCH ×5 (18:29→23:33)
[2018-09-15] MEDS: HEPARIN SUB-Q SCH (21:32)
--- NOTE | 2018-09-15 22:34 | Event Note ---
Date: 09/15/18 Received consultation for fecal peritonitis from perforated diverticulitis. Will start cefepime, flagyl and fluconazole. F/u OR intra-abdominal culture. Full consultation to f/u tomorrow.
[2018-09-16] MEDS: HumaLOG SUB-Q SCH ×5 (00:36→23:57)
[2018-09-16] MEDS: TORADOL IV SCH ×4 (00:42→23:55)
[2018-09-16] MEDS: MAXIPIME/NS 2 GM/100 ML 2 GM/100 ML BAG IV SCH ×3 (00:43→15:21)
[2018-09-16] MEDS: NACL 0.9% 1000 ML 2,000 ML IV SCH (01:55)
[2018-09-16] MEDS: FLAGYL 500 MG/100 ML 500 MG/100 ML BAG IV SCH ×5 (04:26→21:15)
[2018-09-16 05:25] LABS: BUN/Creatinine Ratio 25; Blood Urea Nitrogen 25 mg/dL (7-17); Calcium 8.1 mg/dL (8.4-10.2); Hemolysis Index 65
[2018-09-16 05:27] LABS: Hematocrit 29.3 % (30.3-42.9); Hemoglobin 9.5 gm/dl (10.1-14.3); Mean Corpuscular HGB Conc 32 % (30-34); Mean Corpuscular Volume 97 fl (79-97); Platelet Count 391 K/mm3 (140-440); Red Blood Count 3.01 M/mm3 (3.65-5.03); Red Cell Distribution Width 16.2 % (13.2-15.2)
[2018-09-16 06:20] LABS: Basophils % (Manual) 0 % (0.0-1.8); Eosinophils % (Manual) 0 % (0.0-4.3); RBC Morphology Normal; Total Cells Counted 100
[2018-09-16] MEDS: MORPHINE IV PRN ×3 (08:11→22:27)
--- NOTE | 2018-09-16 08:58 | Consultation ---
History of Present Illness - Reason for Consult Consult date: 09/16/18 purulent peritonitis/perforated diverticulitis Requesting physician: BRISEIDA AYALA - History of Present Illness 38 y/o female with history of diabetes, hypertension and obesity admitted on 09/14/2018 due to 2-week history of abdominal pain, nausea and poor appetite. She reported pain was initially suprapubic and she was seen and evaluated for a possible UTI. Pain has become excruciating and 10 of 10 associated with vomiting. Denies fever, chills. In the ED, temp 98, HR 114, R20, BP 99, BP 100/70. WBC 9. Hg 11.7. Bands 49%. Creat 1. Blood cultures 09/14/2018 no growth so far. CT abdomen shows moderate free air and fluid and possible early abscess formation in the pelvis. She underwent ex lap with abdominal washout on 09/14/2018, findings 1L free purulent fluid and pelvic abscess cavity, no active perforation. OR peritoneal culture Gram stain GNR/GPC. Review of Systems: General: +subjective fever,+anorexia Cutaneous: no rash, pruritus Head: no headaches or injury Eyes: no changes in vision, eye pain, double vision Ears: no ear pain, ear discharge, ringing or hearing loss Nose: no nose bleeding, stuffiness Mouth & throat: no bleeding gums, no horseness, no dental problems, or swollen glands Neck: no pain, node enlargement/lumps, tyroid enlargement or tenderness Respiratory: no cough, wheezing, sputum, hemoptysis, pleuritic chest pain Cardiovascular: no chest pain, leg edema, cyanosis, VALLE, orthopnea Musculoskeletal: no edema Gastrointestinal: +nausea, + vomiting, +abdominal pain, no hematemesis, diarrhea, constipation, melena, bright red blood in stools, fecal incontinence, jaundice Genitourinary/Reproductive: no frequent urination, dysuria, hematuria, incontinence Neurogical: no seizures, no headaches, no weakness, no paresthesias, no loss of speech or vision; no memory loss, no vertigo, no tremors, no numbness Psychiatric: stable mood; no excessive anxiety, sadness or moodiness Past History Past Medical History: diabetes, hypertension, other (Obesity) Past Surgical History: Other (Right Index Finger amputation) Social history: , lives with family, other (marijuana use). denies: smoking, alcohol abuse, prescription drug abuse Family history: cancer, diabetes, hypertension Medications and Allergies Allergies Allergy/AdvReac Type Severity Reaction Status Date / Time No Known Allergies Allergy Unverified 09/14/18 11:54 Home Medications Medication Instructions Recorded Confirmed Last Taken Type Ciprofloxacin HCl [Ciprofloxacin 250 mg PO Q12H MDD FOR 5 DAYS 09/14/18 09/14/18 09/13/18 History TAB] Lisinopril/Hydrochlorothiazide 1 tab PO QDAY 09/14/18 09/14/18 09/13/18 History [Zestoretic 20-25 mg] metFORMIN [Glucophage] 500 mg PO BIDWM 09/14/18 09/14/18 09/13/18 History Active Meds: Active Medications Albuterol (Proventil) 2.5 mg IH Q3HRT PRN PRN Reason: Shortness Of Breath Clonidine HCl (Catapres-Tts Patch) 0.2 mg TD QWEEK AYLEEN Last Admin: 09/15/18 16:26 Dose: 0.2 mg Documented by: Dextrose (D50w (25gm) Syringe) 50 ml IV PRN PRN PRN Reason: Hypoglycemia Heparin Sodium (Porcine) (Heparin) 5,000 unit SUB-Q Q12HR AYLEEN Last Admin: 09/15/18 21:32 Dose: 5,000 unit Documented by: Metronidazole (Flagyl 500 Mg/100 Ml) 500 mg in 100 mls @ 100 mls/hr IV Q8HR AYLEEN; Protocol Last Admin: 09/16/18 05:16 Dose: 100 mls/hr Documented by: Cefepime HCl (Maxipime/Ns 2 Gm/100 Ml) 2 gm in 100 mls @ 200 mls/hr IV Q8H AYLEEN; Protocol Last Admin: 09/16/18 08:10 Dose: 200 mls/hr Documented by: Fluconazole (Diflucan) 200 mg in 100 mls @ 100 mls/hr IV Q24HR AYLEEN; Protocol Insulin Human Lispro (Humalog) 0 unit SUB-Q Q6HR AYLEEN; Protocol Last Admin: 09/16/18 05:47 Dose: Not Given Documented by: Ketorolac Tromethamine (Toradol) 30 mg IV Q6HR AYLEEN Stop: 09/20/18 11:59 Last Admin: 09/16/18 05:15 Dose: 30 mg Documented by: Labetalol HCl (Normodyne) 10 mg IV Q4H PRN PRN Reason: Hypertension Lorazepam (Ativan) 1 mg IV Q4H PRN PRN Reason: Agitation Last Admin: 09/15/18 13:40 Dose: 1 mg Documented by: Morphine Sulfate (Morphine) 3 mg IV Q3HR PRN PRN Reason: Pain , Severe (7-10) Last Admin: 09/16/18 08:11 Dose: 3 mg Documented by: Ondansetron HCl (Zofran) 4 mg IV Q4H PRN PRN Reason: Nausea And Vomiting Sodium Chloride (Sodium Chloride Flush Syringe 10 Ml) 10 ml IV PRN PRN PRN Reason: LINE FLUSH Physical Examination - Physical Exam Narrative exam: General appearance: Alert in NAD Eyes: anicteric sclerae, moist conjunctivae; no lid-lag; PERRLA HENT: Atraumatic; oropharynx clear with moist mucous membranes and no mucosal ulcerations/no oral thrush; normal hard and soft palate. Normal external ears. Neck: Trachea midline; supple, no thyromegaly or lymphadenopathy Lungs: CTA, with normal respiratory effort and no intercostal retractions CV: RRR no murmur Abdomen: Soft, midline wound with surgical dressings and drain with s erosanguinous fluid Extremities: no edema, cyanosis Skin: Normal temperature, turgor and texture; no rash, ulcers or subcutaneous nodules Psych: Appropriate affect, alert and oriented to person, place and time. Neuro: alert and oriented x 3. Moving all extermities - Constitutional Vitals: Vital Signs Temp Pulse Resp BP Pulse Ox 99.5 F 114 H 24 147/78 99 09/16/18 03:02 09/16/18 04:01 09/16/18 04:01 09/16/18 04:01 09/16/18 04:01 Temperature -Last 24 Hours Temperature 99.5 F Temperature 98.7 F Temperature 98.9 F Results - Labs CBC & Chem 7: 09/16/18 03:33 09/16/18 03:33 Labs: Abnormal lab results 09/15/18 09/15/18 09/15/18 Range/Units 11:48 11:48 12:32 WBC 21.3 H (4.5-11.0) K/mm3 RBC 3.21 L (3.65-5.03) M/mm3 Hgb 10.0 L (10.1-14.3) gm/dl Hct (30.3-42.9) % RDW 16.0 H (13.2-15.2) % Seg Neuts % (Manual) 27.0 L (40.0-70.0) % Lymphocytes % (Manual) 3.0 L (13.4-35.0) % Seg Neutrophils # Man (1.8-7.7) K/mm3 Lymphocytes # (Manual) 0.6 L (1.2-5.4) K/mm3 Monocytes # (Manual) 0.9 H (0.0-0.8) K/mm3 Potassium 3.3 L (3.6-5.0) mmol/L Chloride 115.1 H (98-107) mmol/L Carbon Dioxide 13 L (22-30) mmol/L BUN 18 H (7-17) mg/dL Glucose 207 H (65-100) mg/dL POC Glucose 268 H (70-105) Hemoglobin A1c (4-6) % Calcium 5.3 L* D (8.4-10.2) mg/dL 09/15/18 09/15/18 09/15/18 Range/Units 17:44 23:16 Unknown WBC (4.5-11.0) K/mm3 RBC (3.65-5.03) M/mm3 Hgb (10.1-14.3) gm/dl Hct (30.3-42.9) % RDW (13.2-15.2) % Seg Neuts % (Manual) (40.0-70.0) % Lymphocytes % (Manual) (13.4-35.0) % Seg Neutrophils # Man (1.8-7.7) K/mm3 Lymphocytes # (Manual) (1.2-5.4) K/mm3 Monocytes # (Manual) (0.0-0.8) K/mm3 Potassium (3.6-5.0) mmol/L Chloride (98-107) mmol/L Carbon Dioxide (22-30) mmol/L BUN (7-17) mg/dL Glucose (65-100) mg/dL POC Glucose 203 H 119 H (70-105) Hemoglobin A1c 10.3 H (4-6) % Calcium (8.4-10.2) mg/dL 09/16/18 09/16/18 09/16/18 Range/Units 03:33 03:33 05:27 WBC 22.8 H (4.5-11.0) K/mm3 RBC 3.01 L (3.65-5.03) M/mm3 Hgb 9.5 L (10.1-14.3) gm/dl Hct 29.3 L (30.3-42.9) % RDW 16.2 H (13.2-15.2) % Seg Neuts % (Manual) 88.0 H (40.0-70.0) % Lymphocytes % (Manual) 8.0 L (13.4-35.0) % Seg Neutrophils # Man 20.1 H (1.8-7.7) K/mm3 Lymphocytes # (Manual) (1.2-5.4) K/mm3 Monocytes # (Manual) 0.9 H (0.0-0.8) K/mm3 Potassium (3.6-5.0) mmol/L Chloride 111.4 H (98-107) mmol/L Carbon Dioxide 18 L (22-30) mmol/L BUN 25 H (7-17) mg/dL Glucose 110 H (65-100) mg/dL POC Glucose 117 H (70-105) Hemoglobin A1c (4-6) % Calcium 8.1 L D (8.4-10.2) mg/dL Assessment and Plan Cultures: Blood cultures 09/14/2018 no growth so far. Assessment: 38 y/o female with history of diabetes, hypertension and obesity admitted on 09/14/2018 due to 2-week history of abdominal pain, nausea and poor appetite: 1) Sepsis: Present on admission, manifested by tachycardia, bandemia, increased lactate. Etiology most likely fecal peritonitis and pelvic abscess from perforated diverticulitis. Blood cultures 09/14/2018 no growth so far. UA not available. 2) Fecal peritonitis and pelvic abscess from perforated diverticulitis: CT abdomen shows moderate free air and fluid and possible early abscess formation in the pelvis. She underwent ex lap with abdominal washout on 09/14/2018, findings 1L free purulent fluid and pelvic abscess cavity, no active perforation. OR peritoneal culture Gram stain GNR/GPC. Recommendations: - follow-up blood cultures and OR culture - stop zosyn - continue metronidazole - start cefepime 2 gm IV q12 hours - start fluconazole 200 mg IV qday - monitor leukocytosis Will follow. Dr Prince is covering this weekend and next 2 weeks. Lizette Ibrahim MD Infectious Diseases [employer] [facility] ([facility] M [phone] O [phone]
[2018-09-16] MEDS: HEPARIN SUB-Q SCH ×2 (10:12→21:38)
[2018-09-16] MEDS: DIFLUCAN 200 MG/100 ML BAG IV SCH (10:13)
--- NOTE | 2018-09-16 14:36 | Progress Note ---
Assessment and Plan A: POD #2 s/p ex lap for purulent peritonitis, likely due to perforated diverticulum. stable with improving tachycardia, afebrile. pain improving. Continue abx per ID, appreciate the input will add pepcid consider clamping trial of NGT if output starts trending down. Subjective Date of service: 09/16/18 Patient Reports: Positive: pain is less Narrative: no acute events overnight. She says pain is improved after starting toradol. Objective Vital Signs - 12hr 09/16/18 09/16/18 09/16/18 02:41 02:51 03:01 Temperature Pulse Rate 114 H 115 H 116 H Pulse Rate [ From Monitor] Respiratory 18 17 17 Rate Blood Pressure 147/78 147/78 147/78 O2 Sat by Pulse 99 99 99 Oximetry 09/16/18 09/16/18 09/16/18 03:02 03:11 03:21 Temperature 99.5 F Pulse Rate 115 H 116 H Pulse Rate [ From Monitor] Respiratory 18 18 Rate Blood Pressure 147/78 147/78 O2 Sat by Pulse 99 99 Oximetry 09/16/18 09/16/18 09/16/18 03:31 03:41 03:51 Temperature Pulse Rate 112 H 112 H 120 H Pulse Rate [ From Monitor] Respiratory 22 22 27 H Rate Blood Pressure 147/78 147/78 147/78 O2 Sat by Pulse 100 100 99 Oximetry 09/16/18 09/16/18 09/16/18 04:00 04:01 05:01 Temperature Pulse Rate 114 H 114 H 118 H Pulse Rate [ 116 H From Monitor] Respiratory 22 24 24 Rate Blood Pressure 147/78 147/78 O2 Sat by Pulse 99 99 Oximetry 09/16/18 09/16/18 09/16/18 06:01 07:00 07:01 Temperature 99.1 F Pulse Rate 117 H 116 H Pulse Rate [ From Monitor] Respiratory 24 24 Rate Blood Pressure 147/78 147/78 O2 Sat by Pulse 98 100 Oximetry 09/16/18 09/16/18 09/16/18 08:00 09:01 10:01 Temperature Pulse Rate 118 H 119 H 117 H Pulse Rate [ 118 H From Monitor] Respiratory 27 H 23 21 Rate Blood Pressure 141/93 141/93 141/93 O2 Sat by Pulse 99 99 99 Oximetry 09/16/18 09/16/18 09/16/18 11:00 11:01 12:00 Temperature 98.1 F Pulse Rate 119 H 114 H Pulse Rate [ 112 H From Monitor] Respiratory 22 26 H Rate Blood Pressure 141/93 154/104 O2 Sat by Pulse 99 96 Oximetry 09/16/18 13:00 Temperature Pulse Rate 114 H Pulse Rate [ From Monitor] Respiratory 29 H Rate Blood Pressure 146/105 O2 Sat by Pulse 97 Oximetry - General physical appearance well developed, no distress, moderate pain - Respiratory normal expansion, normal respiratory effort - Abdomen soft, other (dressing taken down, incision is c/d/i, appropriatly tender, QUYEN drain serous, NGT dark bilious slight red tinge) - Labs 09/16/18 03:33 09/16/18 03:33 Diabetes panel 09/15/18 09/16/18 Range/Units Unknown 03:33 Sodium 145 (137-145) mmol/L Potassium 4.8 D (3.6-5.0) mmol/L Chloride 111.4 H (98-107) mmol/L Carbon Dioxide 18 L (22-30) mmol/L BUN 25 H (7-17) mg/dL Creatinine 1.0 (0.7-1.2) mg/dL Glucose 110 H (65-100) mg/dL Hemoglobin A1c 10.3 H (4-6) % Calcium 8.1 L D (8.4-10.2) mg/dL Calcium panel 09/16/18 Range/Units 03:33 Calcium 8.1 L D (8.4-10.2) mg/dL Pituitary panel 09/16/18 Range/Units 03:33 Sodium 145 (137-145) mmol/L Potassium 4.8 D (3.6-5.0) mmol/L Chloride 111.4 H (98-107) mmol/L Carbon Dioxide 18 L (22-30) mmol/L BUN 25 H (7-17) mg/dL Creatinine 1.0 (0.7-1.2) mg/dL Glucose 110 H (65-100) mg/dL Calcium 8.1 L D (8.4-10.2) mg/dL Adrenal panel 09/16/18 Range/Units 03:33 Sodium 145 (137-145) mmol/L Potassium 4.8 D (3.6-5.0) mmol/L Chloride 111.4 H (98-107) mmol/L Carbon Dioxide 18 L (22-30) mmol/L BUN 25 H (7-17) mg/dL Creatinine 1.0 (0.7-1.2) mg/dL Glucose 110 H (65-100) mg/dL Calcium 8.1 L D (8.4-10.2) mg/dL
[2018-09-16] MEDS: D5W/0.45% NACL/KCL 20 MEQ 20 MEQ/1,000 ML BAG IV SCH (15:21)
[2018-09-16] MEDS: PROTONIX IV SCH (21:35)
[2018-09-16] MEDS: ATIVAN IV PRN (23:56)
[2018-09-17] MEDS: MAXIPIME/NS 2 GM/100 ML 2 GM/100 ML BAG IV SCH ×2 (02:25→13:49)
[2018-09-17] MEDS: FLAGYL 500 MG/100 ML 500 MG/100 ML BAG IV SCH ×3 (05:56→21:57)
[2018-09-17] MEDS: TORADOL IV SCH ×3 (05:57→17:10)
[2018-09-17] MEDS: HumaLOG SUB-Q SCH ×3 (06:01→17:14)
[2018-09-17] MEDS: NORMODYNE IV PRN ×2 (06:14→11:17)
[2018-09-17] MEDS: MORPHINE IV PRN ×2 (07:47→20:43)
[2018-09-17] MEDS: HEPARIN SUB-Q SCH ×2 (09:30→21:58)
[2018-09-17] MEDS: DIFLUCAN 200 MG/100 ML BAG IV SCH (09:31)
[2018-09-17] MEDS: PROTONIX IV SCH (09:31)
--- NOTE | 2018-09-17 10:25 | Progress Note ---
Assessment and Plan Purulent peritonitis with bowel perforation - due to perforated diverticulitis - Status post exploratory laparotomy with ABDOMINAL WASH OUT AND DRAIN PLACEMENT - Continue iv antibiotics, IV pain medications, keep nothing by mouth, continue IV fluids with low volume D5 normal saline - plan for clamping trial of NGT if output starts trending down. Sepsis due to peritonitis and bowel perforation, present on admission - Continue IV antibiotics, follow surgical culture - ID following Diabetes mellitus type 2 uncontrolled - SSI every 6 hour, A1c 10.3 Hypertension, continue on on clonidine patch and labetalol IV as needed Hypocalcemia, repleted calcium, Hypoalbuminemia, due to poor oral intake and sepsis - Continue to monitor and treat underlying condition Hypocalcemia, replete and monitor, check for magnesium level DVT prophylaxis, Lovenox Brief History: 38 YO Female with HTN, DM, Obesity presents to ED by EMS for evaluation of abdomen over the past 2 days with worsening symptoms over the past 1 day. Pt seen and evaluated in ED and underwent CT Abdomen/Pelvis which revealed free air with suspected perforation complicated by peritonitis. Surgery team consulted in ED and emergently taken to the warmer. Pt initiated on IV antibiotic therapy and admitted to IMCU Radiological data: Abdominal pelvis CT: Moderate free air and fluid is identified in the abdomen concerning for bowel perforation. Possible early abscess formation in the pelvis. Recommend consultation with a surgeon. Hospitalist Physical exam: GENERAL: well-developed and obese -[place] female lying on bed appeared to be in no discomfort. HEENT: Normocephalic. Atraumatic. No conjunctival congestion or icterus. Patient has moist mucous membranes. NECK: Supple. Trachea midline. CHEST/LUNGS: Clear to auscultated bilaterally, breathing nonlabored. No wheezes crackles or rhonchi. HEART/CARDIOVASCULAR: Regular in rate and rhythm. S1 and S2 positive. ABDOMEN: Abdomen is soft, tender, surgical dressing on place. Patient has hyperactive bowel sounds. SKIN: There is no rash. Warm and dry. NEURO: No focal motor deficit. Follows command. MUSCULOSKELETAL: No joint effusion or tenderness. EXTRIMITY: No edema, no cyanosis or clubbing. PSYCH: Cooperative. Subjective Date of service: 09/16/18 Interval history: Patient seen and examined. Medical records and medication list reviewed. No acute event overnight noted by the RN. Patient denies any chest pain or difficulty breathing. States that abdominal pain is tolerable Discussed plan of care at bedside with patient, general surgeon, patient's RN. Objective - Constitutional Vitals: Vital Signs - 12hr 09/16/18 09/16/18 09/16/18 23:00 23:10 23:46 Temperature 97.7 F Pulse Rate 110 H 112 H Pulse Rate [ From Monitor] Respiratory 21 18 Rate Blood Pressure 151/93 151/93 O2 Sat by Pulse 97 98 Oximetry 09/17/18 09/17/18 09/17/18 00:00 01:00 02:00 Temperature Pulse Rate 110 H 115 H 105 H Pulse Rate [ 116 H From Monitor] Respiratory 22 23 15 Rate Blood Pressure 153/105 147/91 161/89 O2 Sat by Pulse 97 96 96 Oximetry 09/17/18 09/17/18 09/17/18 03:00 03:54 04:00 Temperature 97.8 F Pulse Rate 106 H 105 H Pulse Rate [ 107 H From Monitor] Respiratory 17 20 Rate Blood Pressure 149/107 155/101 O2 Sat by Pulse 92 93 Oximetry 09/17/18 09/17/18 09/17/18 05:00 05:57 06:00 Temperature Pulse Rate 107 H 105 H Pulse Rate [ From Monitor] Respiratory 16 21 18 Rate Blood Pressure 150/101 159/106 O2 Sat by Pulse 95 96 Oximetry 09/17/18 09/17/18 09/17/18 06:14 07:00 08:00 Temperature 98.5 F Pulse Rate 109 H 101 H 101 H Pulse Rate [ 103 H From Monitor] Respiratory 20 16 Rate Blood Pressure 159/106 140/99 164/118 O2 Sat by Pulse 93 93 Oximetry - Labs CBC & Chem 7: 09/16/18 03:33 09/16/18 03:33 Labs: Abnormal lab results 09/16/18 09/16/18 09/16/18 Range/Units 12:07 18:03 23:31 POC Glucose 166 H 166 H 151 H (70-105) 09/17/18 Range/Units 05:23 POC Glucose 147 H (70-105)
--- NOTE | 2018-09-17 13:35 | Progress Note ---
Assessment and Plan A: POD#3 s/p ex lap for purulent peritonitis secondary to perforated diverticulitis. stable, afebrile, improving tachycardia. slowly improving post op ileus will resume clamping trial of NGT and return to suction if residuals are high. c ontinue to have ice chips. awaiting full return of bowel function. continue abx and glycemic control. Subjective Date of service: 09/17/18 Patient Reports: Positive: no new complaints, pain is less, no flatus. Negative: flatus Narrative: pt complains of being thirsty and wanting eat. pain is pretty well controlled. Objective Vital Signs - 12hr 09/17/18 09/17/18 09/17/18 02:00 03:00 03:54 Temperature 97.8 F Pulse Rate 105 H 106 H Pulse Rate [ From Monitor] Respiratory 15 17 Rate Blood Pressure 161/89 149/107 O2 Sat by Pulse 96 92 Oximetry 09/17/18 09/17/18 09/17/18 04:00 05:00 05:57 Temperature Pulse Rate 105 H 107 H Pulse Rate [ 107 H From Monitor] Respiratory 20 16 21 Rate Blood Pressure 155/101 150/101 O2 Sat by Pulse 93 95 Oximetry 09/17/18 09/17/18 09/17/18 06:00 06:14 07:00 Temperature Pulse Rate 105 H 109 H 101 H Pulse Rate [ From Monitor] Respiratory 18 20 Rate Blood Pressure 159/106 159/106 140/99 O2 Sat by Pulse 96 93 Oximetry 09/17/18 09/17/18 09/17/18 08:00 09:00 10:00 Temperature 98.5 F Pulse Rate 101 H 108 H 102 H Pulse Rate [ 103 H From Monitor] Respiratory 16 26 H 21 Rate Blood Pressure 164/118 164/118 172/113 O2 Sat by Pulse 93 94 94 Oximetry 09/17/18 09/17/18 09/17/18 11:00 11:17 12:00 Temperature 98.4 F Pulse Rate 100 H 104 H 97 H Pulse Rate [ 103 H From Monitor] Respiratory 20 22 Rate Blood Pressure 167/116 167/116 167/116 O2 Sat by Pulse 93 93 Oximetry 09/17/18 13:00 Temperature Pulse Rate 101 H Pulse Rate [ From Monitor] Respiratory 18 Rate Blood Pressure 155/92 O2 Sat by Pulse 95 Oximetry - General physical appearance well developed, no distress - Respiratory normal expansion, normal respiratory effort - Abdomen soft, other (dressing c/d/i, QUYEN drain serous-sanguious) - Labs 09/16/18 03:33 09/16/18 03:33
[2018-09-17 14:07] LABS: Hemoglobin 8.3 gm/dl (10.1-14.3); Mean Corpuscular HGB Conc 33 % (30-34); Mean Corpuscular Volume 95 fl (79-97); Platelet Count 428 K/mm3 (140-440); Red Blood Count 2.62 M/mm3 (3.65-5.03)
--- NOTE | 2018-09-17 15:58 | Progress Note ---
Assessment and Plan Cultures: Blood cultures 09/14/2018 no growth OR culture: Gram stain mixed. No growth so far. Assessment: 38 y/o female with history of diabetes, hypertension and obesity admitted on 09/14/2018 due to 2-week history of abdominal pain, nausea and poor appetite: 1) Sepsis: Present on admission, manifested by tachycardia, bandemia, increased lactate. Etiology most likely fecal peritonitis and pelvic abscess from perforated diverticulitis. Blood cultures 09/14/2018 no growth so far. UA not available. 2) Fecal peritonitis and pelvic abscess from perforated diverticulitis: CT abdomen shows moderate free air and fluid and possible early abscess formation in the pelvis. She underwent ex lap with abdominal washout on 09/14/2018, findings 1L free purulent fluid and pelvic abscess cavity, no active p erforation. OR peritoneal culture Gram stain GNR/GPC. 3) Leukemoid reaction: likely reactive. Continue abx. Recommendations: - follow-up OR culture - continue metronidazole, cefepime 2 gm IV q12 hours, fluconazole dose increased to 400 mg IV qday - monitor leukocytosis Lexa Prince MD [facility] C: [phone] O: [phone] F: [phone] Subjective Date of service: 09/17/18 Interval history: No fever. Feels well. Wants to eat. Pain controlled. Passed gas today. Objective - Exam Narrative Exam: Physical Exam: Constitutional: Alert, cooperative. No acute distress Head, Ears, Nose: Normocephalic, atraumatic. External ears, nose normal Eyes: Conjunctivae/corneas clear. No icterus. No ptosis. Neck: Supple, no meningeal signs Cardiovascular: S1, S2 normal. Respiratory: Good air entry, clear to auscultation bilaterally GI: Soft, dressing c/d/i, drain +; bowel sounds + Musculoskeletal: No pedal edema, no cyanosis. Skin: No rash or abscess Hem/Lymphatic: No palpable cervical or supraclavicular nodes. No lymphangitis Psych: Mood ok. Affect normal Neurological: Awake, alert, oriented. No gross abnormality - Constitutional Vitals: Vital Signs Temp Pulse Resp BP Pulse Ox 98.4 F 104 H 22 151/100 97 09/17/18 12:00 09/17/18 15:00 09/17/18 15:00 09/17/18 15:00 09/17/18 15:00 Temperature -Last 24 Hours Temperature 98.4 F Temperature 98.4 F Temperature 98.5 F Temperature 97.8 F Temperature 97.7 F Temperature 99.1 F - Labs CBC & Chem 7: 09/17/18 13:17 09/16/18 03:33 Labs: Abnormal lab results 09/16/18 09/16/18 09/17/18 Range/Units 18:03 23:31 05:23 WBC (4.5-11.0) K/mm3 RBC (3.65-5.03) M/mm3 Hgb (10.1-14.3) gm/dl Hct (30.3-42.9) % RDW (13.2-15.2) % POC Glucose 166 H 151 H 147 H (70-105) 09/17/18 09/17/18 Range/Units 12:18 13:17 WBC 33.2 H (4.5-11.0) K/mm3 RBC 2.62 L (3.65-5.03) M/mm3 Hgb 8.3 L (10.1-14.3) gm/dl Hct 25.0 L (30.3-42.9) % RDW 16.0 H (13.2-15.2) % POC Glucose 198 H (70-105)
[2018-09-17 16:06] LABS: Basophils % (Manual) 0 % (0.0-1.8); Eosinophils % (Manual) 0 % (0.0-4.3); Total Cells Counted 100
[2018-09-17 16:08] LABS: Hypochromasia Few; Platelet Estimate Consistent w Auto; Target Cells 1+
[2018-09-17] MEDS: D5W/0.45% NACL/KCL 20 MEQ 20 MEQ/1,000 ML BAG IV SCH (17:11)
--- NOTE | 2018-09-17 18:11 | Progress Note ---
Assessment and Plan Purulent peritonitis and pelvic abscess with bowel perforation - due to perforated diverticulitis - Status post exploratory laparotomy with ABDOMINAL WASH OUT AND DRAIN PLACEMENT - Continue iv antibiotics, IV pain medications, keep nothing by mouth, continue IV fluids with low volume D5 normal saline - plan for clamping trial of NGT if output starts trending down. start PPN today Sepsis due to peritonitis and bowel perforation, pelvis abscess present on admission - Continue IV antibiotics, follow surgical culture - continue metronidazole, cefepime 2 gm IV q12 hours, fluconazole dose increased to 400 mg IV qday - per ID Diabetes mellitus type 2 uncontrolled - SSI every 6 hour, A1c 10.3 Hypertension, continue on on clonidine patch and labetalol IV as needed Hypocalcemia, repleted calcium, Hypoalbuminemia, due to poor oral intake and sepsis - Continue to monitor and treat underlying condition Hypocalcemia, replete and monitor, check for magnesium level DVT prophylaxis, Lovenox Brief History: 38 YO Female with HTN, DM, Obesity presents to ED by EMS for evaluation of abdomen over the past 2 days with worsening symptoms over the past 1 day. Pt seen and evaluated in ED and underwent CT Abdomen/Pelvis which revealed free air with suspected perforation complicated by peritonitis. Surgery team consulted in ED and emergently taken to the warmer. Pt initiated on IV antibiotic therapy and admitted to IMCU Radiological data: Abdominal pelvis CT: Moderate free air and fluid is identified in the abdomen concerning for bowel perforation. Possible early abscess formation in the pelvis. Recommend consultation with a surgeon. Hospitalist Physical exam: GENERAL: well-developed and obese -N[place]alese female lying on bed appeared to be in no discomfort. HEENT: Normocephalic. Atraumatic. No conjunctival congestion or icterus. Patie nt has moist mucous membranes. NECK: Supple. Trachea midline. CHEST/LUNGS: Clear to auscultated bilaterally, breathing nonlabored. No wheezes crackles or rhonchi. HEART/CARDIOVASCULAR: Regular in rate and rhythm. S1 and S2 positive. ABDOMEN: Abdomen is soft, tender, surgical dressing on place. Patient has hyperactive bowel sounds. SKIN: There is no rash. Warm and dry. NEURO: No focal motor deficit. Follows command. MUSCULOSKELETAL: No joint effusion or tenderness. EXTRIMITY: No edema, no cyanosis or clubbing. PSYCH: Cooperative. Subjective Date of service: 09/17/18 Interval history: Patient seen and examined. Medical records and medication list reviewed. No acute event overnight noted by the RN. Patient denies any chest pain or difficulty breathing. States that abdominal pain is tolerable Discussed plan of care at bedside with patient, general surgeon, patient's RN. Objective - Constitutional Vitals: Vital Signs - 12hr 09/17/18 09/17/18 09/17/18 06:14 07:00 08:00 Temperature 98.5 F Pulse Rate 109 H 101 H 101 H Pulse Rate [ 103 H From Monitor] Respiratory 20 16 Rate Blood Pressure 159/106 140/99 164/118 O2 Sat by Pulse 93 93 Oximetry 09/17/18 09/17/18 09/17/18 09:00 10:00 11:00 Temperature Pulse Rate 108 H 102 H 100 H Pulse Rate [ From Monitor] Respiratory 26 H 21 20 Rate Blood Pressure 164/118 172/113 167/116 O2 Sat by Pulse 94 94 93 Oximetry 09/17/18 09/17/18 09/17/18 11:17 12:00 13:00 Temperature 98.4 F Pulse Rate 104 H 97 H 101 H Pulse Rate [ 103 H From Monitor] Respiratory 22 18 Rate Blood Pressure 167/116 167/116 155/92 O2 Sat by Pulse 93 95 Oximetry 09/17/18 09/17/18 09/17/18 14:00 15:00 16:00 Temperature 98 F Pulse Rate 101 H 104 H 102 H Pulse Rate [ 103 H From Monitor] Respiratory 18 22 25 H Rate Blood Pressure 156/97 151/100 151/105 O2 Sat by Pulse 96 97 98 Oximetry 09/17/18 09/17/18 17:00 18:00 Temperature Pulse Rate 104 H 100 H Pulse Rate [ From Monitor] Respiratory 23 22 Rate Blood Pressure 157/104 146/109 O2 Sat by Pulse 96 96 Oximetry - Labs CBC & Chem 7: 09/18/18 05:07 09/18/18 05:07 Labs: Abnormal lab results 09/16/18 09/17/18 09/17/18 Range/Units 23:31 05:23 12:18 WBC (4.5-11.0) K/mm3 RBC (3.65-5.03) M/mm3 Hgb (10.1-14.3) gm/dl Hct (30.3-42.9) % RDW (13.2-15.2) % Seg Neuts % (Manual) (40.0-70.0) % Lymphocytes % (Manual) (13.4-35.0) % Seg Neutrophils # Man (1.8-7.7) K/mm3 Monocytes # (Manual) (0.0-0.8) K/mm3 POC Glucose 151 H 147 H 198 H (70-105) 09/17/18 09/17/18 Range/Units 13:17 17:12 WBC 33.2 H (4.5-11.0) K/mm3 RBC 2.62 L (3.65-5.03) M/mm3 Hgb 8.3 L (10.1-14.3) gm/dl Hct 25.0 L (30.3-42.9) % RDW 16.0 H (13.2-15.2) % Seg Neuts % (Manual) 88.0 H (40.0-70.0) % Lymphocytes % (Manual) 7.0 L (13.4-35.0) % Seg Neutrophils # Man 29.2 H (1.8-7.7) K/mm3 Monocytes # (Manual) 1.0 H (0.0-0.8) K/mm3 POC Glucose 186 H (70-105)
[2018-09-17] MEDS ORDERED: TPN ADULT 3,000 ML IV SCH (20:00)
[2018-09-17] MEDS ORDERED: CLINIMIX 4.25%-5% SOLUTION 2,000 ML IV SCH (20:00)
[2018-09-18] MEDS: TORADOL IV SCH ×4 (00:01→17:44)
[2018-09-18] MEDS: ATIVAN IV PRN (00:02)
[2018-09-18] MEDS: HumaLOG SUB-Q SCH ×4 (00:29→17:57)
[2018-09-18] MEDS: MAXIPIME/NS 2 GM/100 ML 2 GM/100 ML BAG IV SCH ×2 (01:04→13:14)
[2018-09-18] MEDS: FLAGYL 500 MG/100 ML 500 MG/100 ML BAG IV SCH ×3 (05:18→21:53)
[2018-09-18 06:04] LABS: Hematocrit 23.9 % (30.3-42.9); Hemoglobin 7.9 gm/dl (10.1-14.3); Mean Corpuscular HGB Conc 33 % (30-34); Mean Corpuscular Volume 95 fl (79-97); Platelet Count 371 K/mm3 (140-440); Red Blood Count 2.53 M/mm3 (3.65-5.03)
[2018-09-18 06:21] LABS: BUN/Creatinine Ratio 34; Blood Urea Nitrogen 24 mg/dL (7-17); Calcium 7.7 mg/dL (8.4-10.2); Hemolysis Index 9
[2018-09-18 07:53] LABS: Eosinophils % (Auto) 0.2 % (0.0-4.3); Monocytes # (Auto) 0.6 K/mm3 (0.0-0.8); Monocytes % (Auto) 2.7 % (0.0-7.3)
[2018-09-18 08:15] LABS: Basophils % (Manual) 0 % (0.0-1.8); Eosinophils % (Manual) 0 % (0.0-4.3); Monocytes % (Manual) 2.5 % (0.0-7.3); Myelocytes # (Manual) 0.5 K/mm3; Promyelocytes # (Manual) 0.2 K/mm3; Total Cells Counted 200
[2018-09-18 08:16] LABS: Platelet Estimate Consistent w Auto; RBC Morphology Normal; Smudge Cells Few
[2018-09-18] MEDS: PROTONIX IV SCH (09:11)
[2018-09-18] MEDS: DIFLUCAN 200 ML IV SCH (09:11)
[2018-09-18] MEDS: NORMODYNE IV PRN ×2 (09:12→14:16)
[2018-09-18] MEDS: HEPARIN SUB-Q SCH ×2 (09:12→21:52)
--- NOTE | 2018-09-18 11:14 | Progress Note ---
Assessment and Plan Purulent peritonitis and pelvic abscess with bowel perforation - due to perforated diverticulitis - Status post exploratory laparotomy with ABDOMINAL WASH OUT AND DRAIN PLACEMENT - Continue iv antibiotics, IV pain medications, continue IV fluids with low volume D5 normal saline - Started on clear liquid diet today, cont PPN for now Sepsis due to peritonitis and bowel perforation, pelvis abscess present on admission - Continue IV antibiotics, follow surgical culture - continue metronidazole, cefepime 2 gm IV q12 hours, fluconazole dose increased to 400 mg IV qday - per ID Diabetes mellitus type 2 uncontrolled - SSI every 6 hour, A1c 10.3 Hypertension, continue on on clonidine patch and labetalol IV as needed Hypocalcemia, repleted calcium, Hypoalbuminemia, due to poor oral intake and sepsis - Continue to monitor and treat underlying condition Hypocalcemia, replete and monitor, check for magnesium level DVT prophylaxis, Lovenox Brief History: 38 YO Female with HTN, DM, Obesity presents to ED by EMS for evaluation of abdomen over the past 2 days with worsening symptoms over the past 1 day. Pt seen and evaluated in ED and underwent CT Abdomen/Pelvis which revealed free air with suspected perforation complicated by peritonitis. Surgery team consulted in ED and emergently taken to the warmer. Pt initiated on IV antibiotic therapy and admitted to [facility]MCU Radiological data: Abdominal pelvis CT: Moderate free air and fluid is identified in the abdomen concerning for bowel perforation. Possible early abscess formation in the pelvis. Recommend consultation with a surgeon. Hospitalist Physical exam: GENERAL: well-developed and obese -[place] female lying on bed appeared to be in no discomfort. HEENT: Normocephalic. Atraumatic. No conjunctival congestion or icterus. Patient has moist mucous membranes. NECK: Supple. Trachea midline. CHEST/LUNGS: Clear to auscultated bilaterally, breathing nonlabored. No wheezes crackles or rhonchi. HEART/CARDIOVASCULAR: Regular in rate and rhythm. S1 and S2 positive. ABDOMEN: Abdomen is soft, tender, surgical dressing on place. Patient has hyperactive bowel sounds. SKIN: There is no rash. Warm and dry. NEURO: No focal motor deficit. Follows command. MUSCULOSKELETAL: No joint effusion or tenderness. EXTRIMITY: No edema, no cyanosis or clubbing. PSYCH: Cooperative. Subjective Date of service: 09/18/18 Interval history: Patient seen and examined. Medical records and medication list reviewed. No acute event overnight noted by the RN. Patient denies any chest pain or difficulty breathing. States that abdominal pain is tolerable, tolerating clear liquid diet Discussed plan of care at bedside with patient, general surgeon, patient's RN. Objective - Constitutional Vitals: Vital Signs - 12hr 09/18/18 09/18/18 09/18/18 00:00 00:01 01:00 Temperature 98.8 F Pulse Rate 110 H 109 H Pulse Rate [ 88 From Monitor] Respiratory 20 25 H 22 Rate Blood Pressure 144/99 146/98 O2 Sat by Pulse 95 92 Oximetry 09/18/18 09/18/18 09/18/18 02:00 03:00 04:00 Temperature 97.9 F Pulse Rate 108 H 108 H 104 H Pulse Rate [ 106 H From Monitor] Respiratory 11 L 17 18 Rate Blood Pressure 156/108 143/92 134/89 O2 Sat by Pulse 94 95 95 Oximetry 09/18/18 09/18/18 09/18/18 05:00 05:20 06:00 Temperature Pulse Rate 104 H 106 H Pulse Rate [ From Monitor] Respiratory 17 17 19 Rate Blood Pressure 142/104 148/99 O2 Sat by Pulse 94 94 Oximetry 09/18/18 09:12 Temperature Pulse Rate 93 H Pulse Rate [ From Monitor] Respiratory Rate Blood Pressure 163/117 O2 Sat by Pulse Oximetry - Labs CBC & Chem 7: 09/19/18 05:16 09/19/18 05:16 Labs: Abnormal lab results 09/17/18 09/17/18 09/17/18 Range/Units 12:18 13:17 17:12 WBC 33.2 H (4.5-11.0) K/mm3 RBC 2.62 L (3.65-5.03) M/mm3 Hgb 8.3 L (10.1-14.3) gm/dl Hct 25.0 L (30.3-42.9) % RDW 16.0 H (13.2-15.2) % Seg Neutrophils % (40.0-70.0) % Seg Neuts % (Manual) 88.0 H (40.0-70.0) % Lymphocytes % (Manual) 7.0 L (13.4-35.0) % Nucleated RBC % (0.0-0.9) % Seg Neutrophils # (1.8-7.7) K/mm3 Seg Neutrophils # Man 29.2 H (1.8-7.7) K/mm3 Monocytes # (Manual) 1.0 H (0.0-0.8) K/mm3 Chloride (98-107) mmol/L BUN (7-17) mg/dL Glucose (65-100) mg/dL POC Glucose 198 H 186 H (70-105) Calcium (8.4-10.2) mg/dL 09/18/18 09/18/18 09/18/18 Range/Units 00:25 05:07 05:07 WBC 22.5 H (4.5-11.0) K/mm3 RBC 2.53 L (3.65-5.03) M/mm3 Hgb 7.9 L (10.1-14.3) gm/dl Hct 23.9 L (30.3-42.9) % RDW 16.0 H (13.2-15.2) % Seg Neutrophils % 86.4 H (40.0-70.0) % Seg Neuts % (Manual) 76.5 H (40.0-70.0) % Lymphocytes % (Manual) 11.5 L (13.4-35.0) % Nucleated RBC % 1.0 H (0.0-0.9) % Seg Neutrophils # 19.1 H (1.8-7.7) K/mm3 Seg Neutrophils # Man 17.2 H (1.8-7.7) K/mm3 Monocytes # (Manual) (0.0-0.8) K/mm3 Chloride 111.6 H (98-107) mmol/L BUN 24 H (7-17) mg/dL Glucose 215 H (65-100) mg/dL POC Glucose 228 H (70-105) Calcium 7.7 L (8.4-10.2) mg/dL 09/18/18 Range/Units 06:02 WBC (4.5-11.0) K/mm3 RBC (3.65-5.03) M/mm3 Hgb (10.1-14.3) gm/dl Hct (30.3-42.9) % RDW (13.2-15.2) % Seg Neutrophils % (40.0-70.0) % Seg Neuts % (Manual) (40.0-70.0) % Lymphocytes % (Manual) (13.4-35.0) % Nucleated RBC % (0.0-0.9) % Seg Neutrophils # (1.8-7.7) K/mm3 Seg Neutrophils # Man (1.8-7.7) K/mm3 Monocytes # (Manual) (0.0-0.8) K/mm3 Chloride (98-107) mmol/L BUN (7-17) mg/dL Glucose (65-100) mg/dL POC Glucose 233 H (70-105) Calcium (8.4-10.2) mg/dL
--- NOTE | 2018-09-18 12:46 | Progress Note ---
Assessment and Plan POD#4 s/p ex lap for purulent peritonitis due to perforated viscous. stable, afebrile, showing some signs of return of bowel function. wbc trending down. will start clear liquid diet with close observation. If pt begins to have increased pain or vomits will return NGT to suction. continue abx, and glycemic control. Subjective Date of service: 09/18/18 Patient Reports: Positive: still having pain (no acute events overnight), pain is less, flatus Objective Vital Signs - 12hr 09/18/18 09/18/18 09/18/18 01:00 02:00 03:00 Temperature Pulse Rate 109 H 108 H 108 H Pulse Rate [ From Monitor] Respiratory 22 11 L 17 Rate Blood Pressure 146/98 156/108 143/92 O2 Sat by Pulse 92 94 95 Oximetry 09/18/18 09/18/18 09/18/18 04:00 05:00 05:20 Temperature 97.9 F Pulse Rate 104 H 104 H Pulse Rate [ 106 H From Monitor] Respiratory 18 17 17 Rate Blood Pressure 134/89 142/104 O2 Sat by Pulse 95 94 Oximetry 09/18/18 09/18/18 09/18/18 06:00 07:00 08:00 Temperature Pulse Rate 106 H 99 H 99 H Pulse Rate [ From Monitor] Respiratory 19 16 19 Rate Blood Pressure 148/99 153/104 155/103 O2 Sat by Pulse 94 95 97 Oximetry 09/18/18 09/18/18 09/18/18 09:00 09:12 10:00 Temperature Pulse Rate 99 H 93 H 94 H Pulse Rate [ From Monitor] Respiratory 23 16 Rate Blood Pressure 155/103 163/117 162/117 O2 Sat by Pulse 97 96 Oximetry 09/18/18 09/18/18 11:00 12:23 Temperature Pulse Rate 98 H Pulse Rate [ From Monitor] Respiratory 22 27 H Rate Blood Pressure 179/118 O2 Sat by Pulse 98 Oximetry - General physical appearance well developed, no distress - Respiratory normal expansion, normal respiratory effort - Abdomen soft, other (obese, incision clean, not draining, no odor, no erythema, appropriatley tender to palpation, QUYEN drain serous) - Labs 09/18/18 05:07 09/18/18 05:07 Diabetes panel 09/18/18 Range/Units 05:07 Sodium 144 (137-145) mmol/L Potassium 3.7 D (3.6-5.0) mmol/L Chloride 111.6 H (98-107) mmol/L Carbon Dioxide 22 (22-30) mmol/L BUN 24 H (7-17) mg/dL Creatinine 0.7 (0.7-1.2) mg/dL Glucose 215 H (65-100) mg/dL Calcium 7.7 L (8.4-10.2) mg/dL Calcium panel 09/18/18 09/18/18 Range/Units 05:07 05:07 Calcium 7.7 L (8.4-10.2) mg/dL Phosphorus 2.80 (2.5-4.5) mg/dL Pituitary panel 09/18/18 Range/Units 05:07 Sodium 144 (137-145) mmol/L Potassium 3.7 D (3.6-5.0) mmol/L Chloride 111.6 H (98-107) mmol/L Carbon Dioxide 22 (22-30) mmol/L BUN 24 H (7-17) mg/dL Creatinine 0.7 (0.7-1.2) mg/dL Glucose 215 H (65-100) mg/dL Calcium 7.7 L (8.4-10.2) mg/dL Adrenal panel 09/18/18 Range/Units 05:07 Sodium 144 (137-145) mmol/L Potassium 3.7 D (3.6-5.0) mmol/L Chloride 111.6 H (98-107) mmol/L Carbon Dioxide 22 (22-30) mmol/L BUN 24 H (7-17) mg/dL Creatinine 0.7 (0.7-1.2) mg/dL Glucose 215 H (65-100) mg/dL Calcium 7.7 L (8.4-10.2) mg/dL
[2018-09-18] MEDS: COREG PO SCH ×2 (13:25→21:52)
[2018-09-18] MEDS: APRESOLINE IV PRN (13:26)
[2018-09-18] MEDS: MORPHINE IV PRN (14:19)
[2018-09-18] MEDS ORDERED: TPN ADULT 2,400 ML IV SCH (20:00)
[2018-09-18] MEDS: ZESTRIL PO SCH (21:53)
[2018-09-19] MEDS: TORADOL IV SCH ×4 (00:23→18:41)
[2018-09-19] MEDS: HumaLOG SUB-Q SCH ×5 (00:25→18:44)
[2018-09-19] MEDS: ATIVAN IV PRN (00:25)
[2018-09-19] MEDS: MAXIPIME/NS 2 GM/100 ML 2 GM/100 ML BAG IV SCH (02:04)
[2018-09-19] MEDS: FLAGYL 500 MG/100 ML 500 MG/100 ML BAG IV SCH ×3 (05:36→21:22)
[2018-09-19 05:56] LABS: Hematocrit 22.3 % (30.3-42.9); Mean Corpuscular Volume 93 fl (79-97); Red Blood Count 2.39 M/mm3 (3.65-5.03)
[2018-09-19 05:57] LABS: Hemoglobin 7.5 gm/dl (10.1-14.3); Mean Corpuscular HGB Conc 34 % (30-34); Platelet Count 344 K/mm3 (140-440); Red Cell Distribution Width 15.7 % (13.2-15.2)
[2018-09-19 06:18] LABS: BUN/Creatinine Ratio 30; Blood Urea Nitrogen 18 mg/dL (7-17); Calcium 7.8 mg/dL (8.4-10.2); Hemolysis Index 30
[2018-09-19 08:51] LABS: Basophils % (Manual) 0 % (0.0-1.8); Myelocytes # (Manual) 0.3 K/mm3; Promyelocytes # (Manual) 0.5 K/mm3; Total Cells Counted 100
[2018-09-19 08:53] LABS: Anisocytosis Few; Hypochromasia Few; Target Cells Rare
[2018-09-19 08:55] LABS: Platelet Estimate Consistent w Auto
--- NOTE | 2018-09-19 09:05 | Progress Note ---
Assessment and Plan Cultures: Blood cultures 09/14/2018 no growth OR culture: rare growth of normal skin oswaldo Assessment: 38 y/o female with history of diabetes, hypertension and obesity admitted on 09/14/2018 due to 2-week history of abdominal pain, nausea and poor appetite: 1) Sepsis: Improved. Present on admission, manifested by tachycardia, bandemia, increased lactate. Etiology most likely fecal peritonitis and pelvic abscess from perforated diverticulitis. Blood cultures 09/14/2018 no growth so f ar. UA not available. 2) Fecal peritonitis and pelvic abscess from perforated diverticulitis: CT a bdomen shows moderate free air and fluid and possible early abscess formation in the pelvis. She underwent ex lap with abdominal washout on 09/14/2018, findings 1L free purulent fluid and pelvic abscess cavity, no active perforation. OR peritoneal culture Gram stain rare growth of normal skin oswaldo. Currently on Cefepime, will deescalate to Ceftriaxone to complete 7 days of therapy. 3) Leukemoid reaction: WBC trending down. likely reactive. Continue abx. Recommendations: -discontinue cefepime 2 gm IV q12 hours -start Ceftriaxone 2 gm every 24 hours for 2 days to complete 7 days - continue metronidazole 500mg IV every 8 hours, D6 of D7 -continue fluconazole 400mg IV qday - monitor leukocytosis [facility] M: [id number] O:[phone] Subjective Date of service: 09/19/18 Interval history: Patient seen and examined. Laying in bed. no acute distress reported. No fevers. Objective - Exam Narrative Exam: Constitutional: Alert, cooperative. No acute distress Head, Ears, Nose: Normocephalic, atraumatic. External ears, nose normal Eyes: Conjunctivae/corneas clear. No icterus. No ptosis. Neck: Supple, no meningeal signs Cardiovascular: S1, S2 normal. Respiratory: Good air entry, clear to auscultation bilaterally GI: Soft, dressing c/d/i, drain +; bowel sounds + , Wound clean +dehiscence of wound. Musculoskeletal: No pedal edema, no cyanosis. Skin: No rash or abscess Hem/Lymphatic: No palpable cervical or supraclavicular nodes. No lymphangitis Psych: Mood ok. Affect normal Neurological: Awake, alert, oriented. No gross abnormality - Constitutional Vitals: Vital Signs Temp Pulse Resp BP Pulse Ox 98.6 F 93 H 19 157/103 99 09/19/18 07:40 09/19/18 08:00 09/19/18 08:00 09/19/18 08:00 09/19/18 08:00 Temperature -Last 24 Hours Temperature 98.6 F Temperature 98.9 F Temperature 98.6 F Temperature 97.8 F Temperature 97.8 F Temperature 98.3 F Temperature 98.8 F - Labs CBC & Chem 7: 09/19/18 05:16 09/19/18 05:16 Labs: Abnormal lab results 09/18/18 09/18/18 09/19/18 Range/Units 12:14 17:51 00:11 WBC (4.5-11.0) K/mm3 RBC (3.65-5.03) M/mm3 Hgb (10.1-14.3) gm/dl Hct (30.3-42.9) % RDW (13.2-15.2) % Seg Neuts % (Manual) (40.0-70.0) % Lymphocytes % (Manual) (13.4-35.0) % Nucleated RBC % (0.0-0.9) % Seg Neutrophils # Man (1.8-7.7) K/mm3 BUN (7-17) mg/dL Creatinine (0.7-1.2) mg/dL Glucose (65-100) mg/dL POC Glucose 247 H 278 H 264 H (70-105) Calcium (8.4-10.2) mg/dL 09/19/18 09/19/18 09/19/18 Range/Units 05:16 05:16 06:32 WBC 16.2 H (4.5-11.0) K/mm3 RBC 2.39 L (3.65-5.03) M/mm3 Hgb 7.5 L (10.1-14.3) gm/dl Hct 22.3 L (30.3-42.9) % RDW 15.7 H (13.2-15.2) % Seg Neuts % (Manual) 75.0 H (40.0-70.0) % Lymphocytes % (Manual) 13.0 L (13.4-35.0) % Nucleated RBC % 1.0 H (0.0-0.9) % Seg Neutrophils # Man 12.2 H (1.8-7.7) K/mm3 BUN 18 H (7-17) mg/dL Creatinine 0.6 L (0.7-1.2) mg/dL Glucose 236 H (65-100) mg/dL POC Glucose 259 H (70-105) Calcium 7.8 L (8.4-10.2) mg/dL
[2018-09-19] MEDS: ZESTRIL PO SCH ×2 (10:26→21:25)
[2018-09-19] MEDS: PROTONIX IV SCH (10:27)
[2018-09-19] MEDS: COREG PO SCH ×2 (10:28→21:23)
[2018-09-19] MEDS: DIFLUCAN 200 ML IV SCH (10:29)
[2018-09-19] MEDS: HEPARIN SUB-Q SCH ×2 (10:29→21:24)
[2018-09-19] MEDS ORDERED: PERCOCET 5/325 PO PRN (10:59)
[2018-09-19] MEDS ORDERED: MORPHINE IV PRN (10:59)
--- NOTE | 2018-09-19 11:05 | Progress Note ---
Assessment and Plan A: POD #5 s/p ex lap for purulent peritonitis, stable, afebrile, clinically improving and showing signs of return of bowel function. will transition to PO pain meds today, of does well today on liquids, will d/cNGT tomorrow and advance to full liquids. uncontrolled htn: continue per primary, from a surgical point of view can transfer to floor once blood pressure better controlled. DM: continue treatment per primary Subjective Date of service: 09/19/18 Patient Reports: Positive: no new complaints, still having pain, pain is less, tolerating liquids well (past 24 hours sat in the chair and had her NGT clamped for the majority of the day. ), flatus, no bowel movement Objective Vital Signs - 12hr 09/19/18 09/19/18 09/19/18 00:00 00:01 00:23 Temperature 98.6 F Pulse Rate 96 H 96 H Pulse Rate [ 96 H From Monitor] Respiratory 23 14 26 H Rate Respiratory Rate [Abdomen] Blood Pressure 155/86 O2 Sat by Pulse 98 98 Oximetry 09/19/18 09/19/18 09/19/18 01:00 02:00 03:00 Temperature Pulse Rate 98 H 94 H 101 H Pulse Rate [ From Monitor] Respiratory 19 18 21 Rate Respiratory Rate [Abdomen] Blood Pressure 144/110 146/105 131/100 O2 Sat by Pulse 97 98 99 Oximetry 09/19/18 09/19/18 09/19/18 04:00 05:00 06:00 Temperature 98.9 F Pulse Rate 95 H 93 H 98 H Pulse Rate [ 93 H From Monitor] Respiratory 19 21 18 Rate Respiratory 18 Rate [Abdomen] Blood Pressure 143/97 147/101 150/103 O2 Sat by Pulse 98 98 100 Oximetry 09/19/18 09/19/18 09/19/18 07:00 07:40 08:00 Temperature 98.6 F Pulse Rate 89 92 H Pulse Rate [ From Monitor] Respiratory 18 19 Rate Respiratory Rate [Abdomen] Blood Pressure 153/97 157/103 O2 Sat by Pulse 99 99 Oximetry 09/19/18 09/19/18 09/19/18 09:00 10:26 10:28 Temperature Pulse Rate 92 H 92 H 94 H Pulse Rate [ From Monitor] Respiratory 21 Rate Respiratory Rate [Abdomen] Blood Pressure 176/113 107/106 172/106 O2 Sat by Pulse 98 Oximetry - General physical appearance well developed, no distress - Abdomen soft, not rebound, not guarding, not rigid, other (approriately tender to palpation. dressing c/d/i, QUYEN drain serous) - Labs 09/19/18 05:16 09/19/18 05:16 Diabetes panel 09/19/18 Range/Units 05:16 Sodium 138 (137-145) mmol/L Potassium 3.7 (3.6-5.0) mmol/L Chloride 105.2 (98-107) mmol/L Carbon Dioxide 22 (22-30) mmol/L BUN 18 H (7-17) mg/dL Creatinine 0.6 L (0.7-1.2) mg/dL Glucose 236 H (65-100) mg/dL Calcium 7.8 L (8.4-10.2) mg/dL Calcium panel 09/19/18 Range/Units 05:16 Calcium 7.8 L (8.4-10.2) mg/dL Phosphorus 2.90 (2.5-4.5) mg/dL Pituitary panel 09/19/18 Range/Units 05:16 Sodium 138 (137-145) mmol/L Potassium 3.7 (3.6-5.0) mmol/L Chloride 105.2 (98-107) mmol/L Carbon Dioxide 22 (22-30) mmol/L BUN 18 H (7-17) mg/dL Creatinine 0.6 L (0.7-1.2) mg/dL Glucose 236 H (65-100) mg/dL Calcium 7.8 L (8.4-10.2) mg/dL Adrenal panel 09/19/18 Range/Units 05:16 Sodium 138 (137-145) mmol/L Potassium 3.7 (3.6-5.0) mmol/L Chloride 105.2 (98-107) mmol/L Carbon Dioxide 22 (22-30) mmol/L BUN 18 H (7-17) mg/dL Creatinine 0.6 L (0.7-1.2) mg/dL Glucose 236 H (65-100) mg/dL Calcium 7.8 L (8.4-10.2) mg/dL
--- NOTE | 2018-09-19 14:21 | Progress Note ---
Assessment and Plan Purulent peritonitis and pelvic abscess with bowel perforation - due to perforated diverticulitis - Status post exploratory laparotomy with ABDOMINAL WASH OUT AND DRAIN PLACEMENT on 09/14 - Continue iv antibiotics, IV pain medications, - Continue on clear liquid diet and PPN for now - if tolerates clear liquid then plan to advance diet to full liquid and remove NG tube tomorrow Sepsis due to peritonitis and bowel perforation, pelvis abscess present on admission - Continue IV antibiotics, follow surgical culture - continue metronidazole, cefepime 2 gm IV q12 hours, fluconazole dose increased to 400 mg IV qday - per ID Diabetes mellitus type 2 uncontrolled - SSI every 6 hour, A1c 10.3 Hypertension, continue on on clonidine patch and labetalol IV as needed Hypocalcemia, repleted calcium, Hypoalbuminemia, due to poor oral intake and sepsis - Continue to monitor and treat underlying condition Hypocalcemia, replete and monitor, check for magnesium level DVT prophylaxis, Lovenox Brief History: 38 YO Female with HTN, DM, Obesity presents to ED by EMS for evaluation of abdomen over the past 2 days with worsening symptoms over the past 1 day. Pt seen and evaluated in ED and underwent CT Abdomen/Pelvis which revealed free air with suspected perforation complicated by peritonitis. Surgery team consulted in ED and emergently taken to the OR. Pt initiated on IV antibiotic therapy and admitted to IMCU Radiological data: Abdominal pelvis CT: Moderate free air and fluid is identified in the abdomen concerning for bowel perforation. Possible early abscess formation in the pelvis. Recommend consultation with a surgeon. Hospitalist Physical exam: GENERAL: well-developed and obese -Welsh female lying on bed appeared to be in no discomfort. HEENT: Normocephalic. Atraumatic. No conjunctival congestion or icterus. Patient has moist mucous membranes. NECK: Supple. Trachea midline. CHEST/LUNGS: Clear to auscultated bilaterally, breathing nonlabored. No wheezes crackles or rhonchi. HEART/CARDIOVASCULAR: Regular in rate and rhythm. S1 and S2 positive. ABDOMEN: Abdomen is soft, tender, surgical dressing on place. Patient has hyperactive bowel sounds. SKIN: There is no rash. Warm and dry. NEURO: No focal motor deficit. Follows command. MUSCULOSKELETAL: No joint effusion or tenderness. EXTRIMITY: No edema, no cyanosis or clubbing. PSYCH: Cooperative. Subjective Date of service: 09/19/18 Interval history: Patient seen and examined. Medical records and medication list reviewed. No acute event overnight noted by the RN. Patient denies any chest pain or difficulty breathing. States that abdominal pain is tolerable, tolerating clear liquid diet Discussed plan of care at bedside with patient, general surgeon, patient's RN. Objective - Constitutional Vitals: Vital Signs - 12hr 09/19/18 09/19/18 09/19/18 03:00 04:00 05:00 Temperature 98.9 F Pulse Rate 101 H 95 H 93 H Pulse Rate [ 93 H From Monitor] Respiratory 21 19 21 Rate Respiratory 18 Rate [Abdomen] Blood Pressure 131/100 143/97 147/101 O2 Sat by Pulse 99 98 98 Oximetry 09/19/18 09/19/18 09/19/18 06:00 07:00 07:40 Temperature 98.6 F Pulse Rate 98 H 89 Pulse Rate [ From Monitor] Respiratory 18 18 Rate Respiratory Rate [Abdomen] Blood Pressure 150/103 153/97 O2 Sat by Pulse 100 99 Oximetry 09/19/18 09/19/18 09/19/18 08:00 09:00 10:01 Temperature Pulse Rate 92 H 92 H 95 H Pulse Rate [ From Monitor] Respiratory 19 21 21 Rate Respiratory Rate [Abdomen] Blood Pressure 157/103 176/113 172/106 O2 Sat by Pulse 99 98 99 Oximetry 09/19/18 09/19/18 09/19/18 10:26 10:28 11:00 Temperature Pulse Rate 92 H 94 H 93 H Pulse Rate [ From Monitor] Respiratory 26 H Rate Respiratory Rate [Abdomen] Blood Pressure 107/106 172/106 139/97 O2 Sat by Pulse 99 Oximetry 09/19/18 12:00 Temperature 98.6 F Pulse Rate 92 H Pulse Rate [ From Monitor] Respiratory 21 Rate Respiratory Rate [Abdomen] Blood Pressure 139/97 O2 Sat by Pulse 98 Oximetry - Labs CBC & Chem 7: 09/19/18 05:16 09/19/18 05:16 Labs: Abnormal lab results 09/18/18 09/19/18 09/19/18 Range/Units 17:51 00:11 05:16 WBC (4.5-11.0) K/mm3 RBC (3.65-5.03) M/mm3 Hgb (10.1-14.3) gm/dl Hct (30.3-42.9) % RDW (13.2-15.2) % Seg Neuts % (Manual) (40.0-70.0) % Lymphocytes % (Manual) (13.4-35.0) % Nucleated RBC % (0.0-0.9) % Seg Neutrophils # Man (1.8-7.7) K/mm3 BUN 18 H (7-17) mg/dL Creatinine 0.6 L (0.7-1.2) mg/dL Glucose 236 H (65-100) mg/dL POC Glucose 278 H 264 H (70-105) Calcium 7.8 L (8.4-10.2) mg/dL 09/19/18 09/19/18 09/19/18 Range/Units 05:16 06:32 12:13 WBC 16.2 H (4.5-11.0) K/mm3 RBC 2.39 L (3.65-5.03) M/mm3 Hgb 7.5 L (10.1-14.3) gm/dl Hct 22.3 L (30.3-42.9) % RDW 15.7 H (13.2-15.2) % Seg Neuts % (Manual) 75.0 H (40.0-70.0) % Lymphocytes % (Manual) 13.0 L (13.4-35.0) % Nucleated RBC % 1.0 H (0.0-0.9) % Seg Neutrophils # Man 12.2 H (1.8-7.7) K/mm3 BUN (7-17) mg/dL Creatinine (0.7-1.2) mg/dL Glucose (65-100) mg/dL POC Glucose 259 H 232 H (70-105) Calcium (8.4-10.2) mg/dL
[2018-09-19] MEDS: ROCEPHIN/NS 2 GM/100 ML 2 GM/100 ML BAG IV SCH (15:55)
[2018-09-19] MEDS ORDERED: TPN ADULT 2,400 ML IV SCH (20:00)
[2018-09-20] MEDS: TORADOL IV SCH ×3 (00:09→11:50)
[2018-09-20] MEDS: HumaLOG SUB-Q SCH ×4 (00:29→18:07)
[2018-09-20 06:01] LABS: BUN/Creatinine Ratio 18; Blood Urea Nitrogen 11 mg/dL (7-17); Calcium 7.6 mg/dL (8.4-10.2); Hemolysis Index 4
[2018-09-20] MEDS: FLAGYL 500 MG/100 ML 500 MG/100 ML BAG IV SCH ×3 (06:05→21:23)
--- NOTE | 2018-09-20 08:59 | Progress Note ---
Assessment and Plan Assessment and plan: 38 YO Female with HTN, DM, Obesity presents to ED by EMS for evaluation of abdomen over the past 2 days with worsening symptoms over the past 1 day. Pt seen and evaluated in ED and underwent CT Abdomen/Pelvis which revealed free air with suspected perforation complicated by peritonitis. Surgery team consulted in ED and emergently taken to the OR. Pt initiated on IV antibiotic therapy and admitted to IMCU Purulent peritonitis and pelvic abscess with bowel perforation - due to perforated diverticulitis - Status post exploratory laparotomy with ABDOMINAL WASH OUT AND DRAIN PLACEMENT on 09/14 - Continue iv antibiotics, IV pain medications, -Now on flull liquid diet Sepsis due to peritonitis and bowel perforation, pelvis abscess present on admission - Continue IV antibiotics, follow surgical culture - continue metronidazole, cefepime 2 gm IV q12 hours, fluconazole dose increased to 400 mg IV qday - per ID Diabetes mellitus type 2 uncontrolled - SSI every 6 hour, A1c 10.3 Hypertension, continue on on clonidine patch and labetalol IV as needed Hypocalcemia, repleted calcium, Hypoalbuminemia, due to poor oral intake and sepsis - Continue to monitor and treat underlying condition Hypocalcemia, replete and monitor, Hypomagnesemia. Replete and recheck in am DVT prophylaxis, Lovenox History Interval history: Nausea Abd pain Abdominal gas Hospitalist Physical - Physical exam Narrative exam: Gen: Not in acute distress, lying in bed, obese HEENT: Normocephalic, atraumatic Neck: supple, no JVD Heart: S1 and S2 reg, no murmurs, rubs or gallop Lungs: Clear, no crackles, no wheeze Abd: soft, mild tender, covered with dressing, normal BS Ext: No edema, no clubbing, no cyanosis, Neuro: Awake,alert, moves all ext, non focal - Constitutional Vitals: Temp Pulse Resp BP Pulse Ox 99 F 99 H 22 141/87 99 09/20/18 08:00 09/20/18 08:00 09/20/18 08:00 09/20/18 08:00 09/20/18 08:00 General appearance: Present: obese Results - Labs CBC & Chem 7: 09/19/18 05:16 09/20/18 05:06 Labs: Laboratory Last Values WBC 16.2 K/mm3 (4.5-11.0) H 09/19/18 05:16 RBC 2.39 M/mm3 (3.65-5.03) L 09/19/18 05:16 Hgb 7.5 gm/dl (10.1-14.3) L 09/19/18 05:16 Hct 22.3 % (30.3-42.9) L 09/19/18 05:16 MCV 93 fl (79-97) 09/19/18 05:16 MCH 32 pg (28-32) 09/19/18 05:16 MCHC 34 % (30-34) 09/19/18 05:16 RDW 15.7 % (13.2-15.2) H 09/19/18 05:16 Plt Count 344 K/mm3 (140-440) 09/19/18 05:16 Lymph % (Auto) Business Functional Analyst 09/19/18 05:16 Carver % (Auto) Business Functional Analyst 09/19/18 05:16 Eos % (Auto) Business Functional Analyst 09/19/18 05:16 Baso % (Auto) Business Functional Analyst 09/19/18 05:16 Lymph # Business Functional Analyst 09/19/18 05:16 Carver # Business Functional Analyst 09/19/18 05:16 Eos # Business Functional Analyst 09/19/18 05:16 Baso # Business Functional Analyst 09/19/18 05:16 Add Manual Diff Complete 09/19/18 05:16 Total Counted 100 09/19/18 05:16 Seg Neutrophils % Business Functional Analyst 09/19/18 05:16 Seg Neuts % (Manual) 75.0 % (40.0-70.0) H 09/19/18 05:16 0 % 09/19/18 05:16 13.0 % (13.4-35.0) L 09/19/18 05:16 Reactive Lymphs % (Man) 0 % 09/19/18 05:16 2.0 % (0.0-7.3) 09/19/18 05:16 1.0 % (0.0-4.3) 09/19/18 05:16 0 % (0.0-1.8) 09/19/18 05:16 4.0 % 09/19/18 05:16 2.0 % 09/19/18 05:16 3.0 % 09/19/18 05:16 0 % 09/19/18 05:16 Nucleated RBC % 1.0 % (0.0-0.9) H 09/19/18 05:16 Seg Neutrophils # Business Functional Analyst 09/19/18 05:16 Seg Neutrophils # Man 12.2 K/mm3 (1.8-7.7) H 09/19/18 05:16 Band Neutrophils # 0.0 K/mm3 09/19/18 05:16 2.1 K/mm3 (1.2-5.4) 09/19/18 05:16 Abs React Lymphs (Man) 0.0 K/mm3 09/19/18 05:16 0.3 K/mm3 (0.0-0.8) 09/19/18 05:16 0.2 K/mm3 (0.0-0.4) 09/19/18 05:16 0.0 K/mm3 (0.0-0.1) 09/19/18 05:16 0.6 K/mm3 09/19/18 05:16 0.3 K/mm3 09/19/18 05:16 0.5 K/mm3 09/19/18 05:16 Blast Cells # 0.0 K/mm3 09/19/18 05:16 WBC Morphology Not Reportable 09/19/18 05:16 WBC Morphology TNR 09/19/18 05:16 Hypersegmented Neuts Not Reportable 09/19/18 05:16 Hyposegmented Neuts Not Reportable 09/19/18 05:16 Hypogranular Neuts Not Reportable 09/19/18 05:16 Not Reportable 09/19/18 05:16 Not Reportable 09/19/18 05:16 Not Reportable 09/19/18 05:16 Not Reportable 09/19/18 05:16 Not Reportable 09/19/18 05:16 Not Reportable 09/19/18 05:16 Consistent w auto 09/19/18 05:16 Not Reportable 09/19/18 05:16 Plt Clumps, EDTA Not Reportable 09/19/18 05:16 Not Reportable 09/19/18 05:16 Not Reportable 09/19/18 05:16 Not Reportable 09/19/18 05:16 Plt Morphology Comment Not Reportable 09/19/18 05:16 RBC Morphology Not Reportable 09/19/18 05:16 Dimorphic RBCs Not Reportable 09/19/18 05:16 Not Reportable 09/19/18 05:16 Few 09/19/18 05:16 Not Reportable 09/19/18 05:16 Few 09/19/18 05:16 Not Reportable 09/19/18 05:16 Not Reportable 09/19/18 05:16 Not Reportable 09/19/18 05:16 Not Reportable 09/19/18 05:16 Not Reportable 09/19/18 05:16 Rare 09/19/18 05:16 Not Reportable 09/19/18 05:16 Not Reportable 09/19/18 05:16 Not Reportable 09/19/18 05:16 Not Reportable 09/19/18 05:16 Not Reportable 09/19/18 05:16 Not Reportable 09/19/18 05:16 Not Reportable 09/19/18 05:16 Not Reportable 09/19/18 05:16 Not Reportable 09/19/18 05:16 Acanthocytes (Spur) Not Reportable 09/19/18 05:16 Rouleaux Not Reportable 09/19/18 05:16 Not Reportable 09/19/18 05:16 Not Reportable 09/19/18 05:16 Not Reportable 09/19/18 05:16 Not Reportable 09/19/18 05:16 Hem Pathologist Commnt Sent to pathology 09/19/18 05:16 Sodium 138 mmol/L (137-145) 09/20/18 05:06 Potassium 3.8 mmol/L (3.6-5.0) 09/20/18 05:06 Chloride 99.2 mmol/L (98-107) 09/20/18 05:06 Carbon Dioxide 29 mmol/L (22-30) D 09/20/18 05:06 14 mmol/L 09/20/18 05:06 BUN 11 mg/dL (7-17) 09/20/18 05:06 0.6 mg/dL (0.7-1.2) L 09/20/18 05:06 Estimated GFR > 60 ml/min 09/20/18 05:06 18 % 09/20/18 05:06 Glucose 247 mg/dL (65-100) H 09/20/18 05:06 POC Glucose 299 (70-105) H 09/20/18 06:18 10.3 % (4-6) H 09/15/18 Unknown Lactic Acid 1.60 mmol/L (0.7-2.0) 09/15/18 11:48 Calcium 7.6 mg/dL (8.4-10.2) L 09/20/18 05:06 Phosphorus 3.00 mg/dL (2.5-4.5) 09/20/18 05:06 Magnesium 1.50 mg/dL (1.7-2.3) L 09/20/18 05:06 3.30 mg/dL (0.1-1.2) H 09/15/18 02:30 AST 322 units/L (5-40) H 09/15/18 02:30 ALT 169 units/L (7-56) H 09/15/18 02:30 67 units/L (35-129) 09/15/18 02:30 5.4 g/dL (6.3-8.2) L 09/15/18 02:30 2.0 g/dL (3.9-5) L 09/15/18 02:30 0.6 % 09/15/18 02:30 HCG, Qual Negative (Negative) 09/14/18 12:06 Active Medications - Current Medications Current Medications: Generic Name Dose Route Start Last Admin Trade Name Freq PRN Reason Stop Dose Admin Albuterol 2.5 mg 09/14/18 15:57 Proventil IH Q3HRT PRN Shortness Of Breath Carvedilol 6.25 mg 09/18/18 13:00 09/19/18 21:23 Coreg PO 6.25 mg BID AYLEEN Administration Clonidine HCl 0.2 mg 09/15/18 14:00 09/15/18 16:26 Catapres-Tts Patch TD 0.2 mg QWEEK AYLEEN Administration Dextrose 50 ml 09/14/18 15:59 D50w (25gm) Syringe IV PRN PRN Hypoglycemia Heparin Sodium (Porcine) 5,000 unit 09/15/18 22:00 09/19/18 21:24 Heparin SUB-Q 5,000 unit Q12HR AYLEEN Administration Hydralazine HCl 10 mg 09/18/18 12:34 09/18/18 13:26 Apresoline IV 10 mg Q30MIN PRN Administration Hypertension > 180/100 Metronidazole 500 mg in 100 mls @ 100 mls/hr 09/14/18 22:00 09/20/18 06:05 Flagyl 500 Mg/100 Ml IV 100 mls/hr Q8HR AYLEEN Administration Protocol Fluconazole 200 mls @ 100 mls/hr 09/18/18 10:00 09/19/18 10:29 Diflucan IV 100 mls/hr Q24HR AYLEEN Administration Protocol Amino Acids/Electrolytes/Dextrose 2,400 mls @ 100 mls/hr 09/19/18 20:00 04/09 21:21 Tpn Adult IV 09/20/18 19:59 100 mls/hr DAILY@2000 AYLEEN Administration Protocol Ceftriaxone Sodium 2 gm in 100 mls @ 200 mls/hr 09/19/18 13:00 09/19/18 15:55 Rocephin/Ns 2 Gm/100 Ml IV 09/21/18 12:59 200 mls/hr Q24HR AYLEEN Administration Protocol Magnesium Sulfate 3 gm/ Sodium 106 mls @ 35.333 mls/hr 09/20/18 09:00 09/20/18 08:50 Chloride IV 09/20/18 11:59 35.333 mls/hr ONCE ONE Administration Insulin Human Lispro 0 unit 09/14/18 18:00 09/20/18 06:12 Humalog SUB-Q 6 unit Q6HR [facility] Administration Protocol Ketorolac Tromethamine 30 mg 09/15/18 12:00 09/20/18 06:03 Toradol IV 09/20/18 11:59 30 mg Q6HR AYLEEN Administration Labetalol HCl 10 mg 09/15/18 13:05 09/18/18 14:16 Normodyne IV 10 mg Q4H PRN Administration Hypertension Lisinopril 20 mg 09/18/18 22:00 09/19/18 21:25 Zestril PO 20 mg BID AYLEEN Administration Lorazepam 1 mg 09/15/18 09:30 09/19/18 00:25 Ativan IV 1 mg Q4H PRN Administration Agitation Morphine Sulfate 2 mg 09/19/18 10:59 Morphine IV Q6H PRN Pain , Severe (7-10) Ondansetron HCl 4 mg 09/15/18 07:25 Zofran IV Q4H PRN Nausea And Vomiting Oxycodone/Acetaminophen 2 tab 09/19/18 10:59 09/19/18 15:56 Percocet 5/325 PO 1 tab Q4H PRN Administration Pain, Moderate (4-6) Pantoprazole Sodium 40 mg 09/16/18 16:00 09/19/18 10:27 Protonix IV 40 mg QDAY AYLEEN Administration Sodium Chloride 10 ml 09/14/18 15:57 Sodium Chloride Flush Syringe 10 Ml IV PRN PRN LINE FLUSH Nutrition/Malnutrition Assess - Dietary Evaluation Nutrition/Malnutrition Findings: Nutrition Notes Start: 09/18/18 09:34 Freq: Status: Active Protocol: Document 09/19/18 15:49 RM (Rec: 09/19/18 15:58 RM [id number]) Nutrition Notes Initial or Follow up Reassessment Current Diagnosis Diabetes,Hypertension Other Pertinent Diagnosis Purulent peritonitis sec to perforated diverticulitis s/p exp lap Current Diet Full liquid Labs/Tests Reviewed Pertinent Medications Reviewed Height 5 ft 2 in Weight 90.7 kg [place] Body Weight (kg) 50.00 BMI 36.6 Subjective/Other Information PPN day 2. Clear liquid diet in place earlier today. Full liquid diet ordered for lunch. Pt stated that she drank some of her broth, drank her tea, and ate her jello from her breakfast tray. Percent of energy/protein needs met: 51%/83% Burn Absent Trauma Absent #1 Nutrition Diagnosis Altered GI function Diagnosis Progress(for reassessment Continues documentation) Is patient on ventilator? No Is Patient Ambulatory and/or Out of Bed Yes REE-([facility]-ambulatory/OOB) [ 2002.325 NUTR.MSJOOB] Kcal/Kg value to use for calculation 17 Approximate Energy Requirements Using 1542 kcal/Kg Calculation Used for Recommendations Kcal/kg Additional Notes Pro needs 1.2-1.5g/kg adjBW: 84-105g/day Fluid needs 1ml/kcal Nutrition Intervention Nutrition Support: PPN at 100 ml/hr: Dextrose 8.3 %, 120 mEq Na, MVI, thiamine Kcal 960 Protein (gm) 70 Carbohydrates (gm) 200 Fat (gm) 0 Fluid (mL) 2,400 Fiber (gm) 0 Add Supplement/Snack (indicate name/kcal Glucerna Chocolate, Vanilla 1 /protein ) daily Provides kCal: 220 Provides Protein (gm) 10 Goal #1 PN to meet energy and pro needs as best possible Goal #2 BG control Anticipated Discharge Needs: None identified at this time Follow-Up By: 09/20/18 Additional Comments Labs in am: Mg HOPPER Phos
[2018-09-20] MEDS ORDERED: MAGNESIUM SULFATE 3 GM in NACL 0.9% 100 ML IV ONE (09:00)
[2018-09-20] MEDS: COREG PO SCH (09:22)
[2018-09-20] MEDS: HEPARIN SUB-Q SCH ×2 (09:22→21:28)
[2018-09-20] MEDS: ZESTRIL PO SCH (09:22)
[2018-09-20] MEDS: PROTONIX IV SCH (09:22)
[2018-09-20] MEDS: ROCEPHIN/NS 2 GM/100 ML 2 GM/100 ML BAG IV SCH (09:24)
[2018-09-20] MEDS: DIFLUCAN 200 ML IV SCH (09:25)
--- NOTE | 2018-09-20 10:47 | Progress Note ---
Assessment and Plan Cultures: Blood cultures 09/14/2018 no growth OR culture: rare growth of normal skin oswaldo Assessment: 38 y/o female with history of diabetes, hypertension and obesity admitted on 09/14/2018 due to 2-week history of abdominal pain, nausea and poor appetite: 1) Sepsis: Improved. New fever spike noted 101.1. Etiology most likely fecal peritonitis and pelvic abscess from perforated diverticulitis. Blood cultures 09/14/2018 no growth so far. UA not available. 2) Fecal peritonitis and pelvic abscess from perforated diverticulitis: CT abdomen shows moderate free air and fluid and possible early abscess formation in the pelvis. She underwent ex lap with abdominal washout on 09/14/2018, findings 1L free purulent fluid and pelvic abscess cavity, no active perforation. However today Increased abdominal discomfort and QUYEN drainage of dark brownish fluid. Suspicion for opening and leak or previous perforation. CT abdomen and pelvis show no new fluid collections identified in the abdomen or pelvis. There is small unorganized ascites in the right abdomen. OR peritoneal culture Gram stain rare growth of normal skin oswaldo. 3) Leukemoid reaction: WBC trending down. likely reactive. Recommendations: -continue Ceftriaxone 2 gm every 24 hours - continue metronidazole 500mg IV every 8 hours -continue fluconazole 400mg IV qday - monitor leukocytosis and fevers [facility] M: [phone] O:[phone] Subjective Date of service: 09/20/18 Interval history: Patient seen and examined. Laying in bed. Increased abdominal tenderness with palpation. Objective - Exam Narrative Exam: Constitutional: Alert, cooperative. No acute distress Head, Ears, Nose: Normocephalic, atraumatic. External ears, nose normal Eyes: Conjunctivae/corneas clear. No icterus. No ptosis. Neck: Supple, no meningeal signs Cardiovascular: S1, S2 normal. Respiratory: Good air entry, clear to auscultation bilaterally GI: Soft, dressing c/d/i, QUYEN Drainage of dark brownish, murky fluid; bowel sounds + , Wound Serosanguinous +dehiscence of wound. Musculoskeletal: No pedal edema, no cyanosis. Skin: No rash or abscess Hem/Lymphatic: No palpable cervical or supraclavicular nodes. No lymphangitis Psych: Mood ok. Affect normal Neurological: Awake, alert, oriented. No gross abnormality - Constitutional Vitals: Vital Signs Temp Pulse Resp BP Pulse Ox 99 F 102 H 28 H 127/75 95 09/20/18 08:00 09/20/18 10:00 09/20/18 10:00 09/20/18 10:00 09/20/18 10:00 Temperature -Last 24 Hours Temperature 99 F Temperature 101.1 F Temperature 98.0 F Temperature 98.4 F Temperature 98.3 F Temperature 98.6 F - Labs CBC & Chem 7: 09/19/18 05:16 09/20/18 05:06 Labs: Abnormal lab results 09/19/18 09/19/18 09/20/18 Range/Units 12:13 18:42 00:16 Creatinine (0.7-1.2) mg/dL Glucose (65-100) mg/dL POC Glucose 232 H 304 H 222 H (70-105) Calcium (8.4-10.2) mg/dL Magnesium (1.7-2.3) mg/dL 09/20/18 09/20/18 Range/Units 05:06 06:18 Creatinine 0.6 L (0.7-1.2) mg/dL Glucose 247 H (65-100) mg/dL POC Glucose 299 H (70-105) Calcium 7.6 L (8.4-10.2) mg/dL Magnesium 1.50 L (1.7-2.3) mg/dL
--- NOTE | 2018-09-20 12:27 | Progress Note ---
Assessment and Plan POD#6 s/p ex lap for purulent peritonitis due to suspected perforated sigmoid. clinically worsening suspicsious for opening and leak or previous perforation. strict NPO, stat CT scan a/p, continue abx pending on findings, if contained will continue QUYEN drainage and treat like contained fistula, if shows large uncontained leak will need to take back to OR for ex lap and probable colostomy. Discussed with patient at length. Subjective Date of service: 09/20/18 Patient Reports: Positive: flatus (pt had a rough night with fever, and increased abdominal discomfort. she says she did not feel nauseous, and has been passing gas.) Objective Vital Signs - 12hr 09/20/18 09/20/18 09/20/18 01:00 02:00 03:00 Temperature Pulse Rate 98 H 105 H 102 H Respiratory 20 19 24 Rate Blood Pressure 164/100 157/93 147/92 O2 Sat by Pulse 99 97 96 Oximetry 09/20/18 09/20/18 09/20/18 04:00 04:45 05:00 Temperature 101.1 F H Pulse Rate 107 H 104 H Respiratory 26 H 27 H Rate Blood Pressure 136/95 136/95 O2 Sat by Pulse 96 95 Oximetry 09/20/18 09/20/18 09/20/18 06:01 07:01 08:00 Temperature 99 F Pulse Rate 108 H 107 H 99 H Respiratory 34 H 30 H 24 Rate Blood Pressure 152/100 120/66 141/87 O2 Sat by Pulse 96 95 97 Oximetry 09/20/18 09/20/18 09/20/18 09:00 09:22 10:00 Temperature Pulse Rate 103 H 103 H 102 H Respiratory 30 H 28 H Rate Blood Pressure 139/92 139/92 127/75 O2 Sat by Pulse 99 95 Oximetry 09/20/18 09/20/18 11:00 12:00 Temperature Pulse Rate 101 H 99 H Respiratory 32 H 24 Rate Blood Pressure 137/87 148/94 O2 Sat by Pulse 97 Oximetry - General physical appearance well developed, obese, other (visibly uncomfortable) - Respiratory normal expansion, normal respiratory effort - Abdomen soft, distended, not guarding, not rigid, other (inicision c/d/i, QUYEN drain with dark murky fluid much different than prior. increased tenderness to palpation.) - Psychiatric oriented to time, oriented to person, oriented to place - Labs 09/19/18 05:16 09/20/18 05:06 Diabetes panel 09/20/18 Range/Units 05:06 Sodium 138 (137-145) mmol/L Potassium 3.8 (3.6-5.0) mmol/L Chloride 99.2 (98-107) mmol/L Carbon Dioxide 29 D (22-30) mmol/L BUN 11 (7-17) mg/dL Creatinine 0.6 L (0.7-1.2) mg/dL Glucose 247 H (65-100) mg/dL Calcium 7.6 L (8.4-10.2) mg/dL Calcium panel 09/20/18 Range/Units 05:06 Calcium 7.6 L (8.4-10.2) mg/dL Phosphorus 3.00 (2.5-4.5) mg/dL Pituitary panel 09/20/18 Range/Units 05:06 Sodium 138 (137-145) mmol/L Potassium 3.8 (3.6-5.0) mmol/L Chloride 99.2 (98-107) mmol/L Carbon Dioxide 29 D (22-30) mmol/L BUN 11 (7-17) mg/dL Creatinine 0.6 L (0.7-1.2) mg/dL Glucose 247 H (65-100) mg/dL Calcium 7.6 L (8.4-10.2) mg/dL Adrenal panel 09/20/18 Range/Units 05:06 Sodium 138 (137-145) mmol/L Potassium 3.8 (3.6-5.0) mmol/L Chloride 99.2 (98-107) mmol/L Carbon Dioxide 29 D (22-30) mmol/L BUN 11 (7-17) mg/dL Creatinine 0.6 L (0.7-1.2) mg/dL Glucose 247 H (65-100) mg/dL Calcium 7.6 L (8.4-10.2) mg/dL
--- NOTE | 2018-09-20 14:04 | Cat Scan Report ---
CT ABDOMEN AND PELVIS WITH CONTRAST HISTORY: purulent/fecal drainage in QUYEN drain. COMPARISON: 09/14/2018 TECHNIQUE: CT images of the abdomen and pelvis were obtained following administration of intravenous contrast. All CT scans at this location are performed using CT dose reduction for ALARA by means of automated exposure control. CONTRAST: 100 ml of intravenous contrast administered. FINDINGS: Lungs/bones: Small bilateral pleural effusions and bibasilar atelectasis is identified. Heart size i s borderline. The bony structures are intact. Abdomen/pelvis: Exploratory laparotomy and pelvic drain placement is noted since the previous exam. There is a loculated fluid collection in the pelvis just superior to the uterus and posterior to the drain measuring 6 x 6 x 6 cm. This presumably represents residual pelvic abscess. No new fluid colle ctions are identified in the abdomen or pelvis although there is small unorganized ascites in the rig ht abdomen. Free peritoneal air has significantly decreased since the previous exam. The liver, biliary system, pancreas, spleen, adrenal glands and kidneys are unremarkable. There is no evidence for bowel obstruction. No obvious colonic lesion. Minimal sigmoid diverticulosis is noted. The uterus and adnexa are unremarkable. The vascular structures are patent. There are scattered reactive appearing lymph nodes in the retrope ritoneum. No bulky adenopathy. IMPRESSION: 1. Interval surgical changes and pelvic drain placement since 09/14/2018. A 6 x 6 x 6 cm loculated pel jason abscess is identified posterior to the pelvic drain as described. No new abdominal or pelvic absc ess. These findings were discussed with Dr. Gipson at 1355 hours EST. Signer Name: Cipriano Ramsey Jr, MD Signed: 09/20/2018 1:00 PM Workstation Name: [id number]
[2018-09-20] MEDS ORDERED: DIPRIVAN 10 MG/ML IV ONE (15:03)
[2018-09-20] MEDS ORDERED: XYLOCAINE MPF 2% ONE (15:04)
[2018-09-20] MEDS ORDERED: DECADRON ONE ×2 (15:04→15:59)
[2018-09-20] MEDS ORDERED: ZOFRAN ONE (15:04)
[2018-09-20] MEDS ORDERED: SUBLIMAZE ONE (15:06)
[2018-09-20] MEDS ORDERED: WATER FOR IRRIG STERILE IR ONE (15:30)
[2018-09-20] MEDS ORDERED: NACL 0.9% IR ONE ×2 (15:30)
[2018-09-20] MEDS ORDERED: ZEMURON IV ONE ×4 (15:49→18:45)
[2018-09-20] MEDS ORDERED: QUELICIN ONE (15:59)
--- NOTE | 2018-09-20 16:37 | Anesthesia Day of Surgery ---
Anesthesia Day of Surgery - Day of Surgery Patient Examined: Yes Patient H&P Reviewed: Yes Patient is NPO: Yes
[2018-09-20] MEDS ORDERED: DILAUDID ONE ×2 (18:36→19:36)
[2018-09-20] MEDS ORDERED: NEO SYNEPHRINE/NS Syringe(OR USE) IV ONE ×2 (18:40→19:08)
[2018-09-20] MEDS ORDERED: TORADOL ONE (18:44)
[2018-09-20] MEDS ORDERED: BLOXIVERZ ONE (18:44)
[2018-09-20] MEDS ORDERED: ROBINUL ONE (18:44)
[2018-09-20] MEDS ORDERED: DILAUDID IV PRN ×2 (18:55→20:17)
[2018-09-20] MEDS ORDERED: NACL 0.9% 1000 ML 2,000 ML ONE (19:23)
[2018-09-20] MEDS ORDERED: HumaLOG SUB-Q ONE (19:42)
--- NOTE | 2018-09-20 19:53 | Operative Report ---
Operative Report Operative Report: DATE: 09/20/2018 SURGEON: BRISEIDA AYALA MD CO-SURGEON: ALFREDO HARRELL DO PROCEDURE: EXPLORATORY LAPAROTOMY, ABDOMINAL WASH OUT, SIGMOID RESECTION WITH IRVING'S POUCH PRE-OP DX: PERFORATED VISCOUS, INTRA-ABDOMINAL ABSCESS POST-OP DX: FECULENT PERITONITIS FINDINGS: HOLE IN SIGMOID COLON WITH FREE FECAL MATERIAL INDICATION: 38 YO FEMALE HAD EX LAP A WEEK AGO FOR PURULENT PERITONITIS FOR SUSPECTED PERFORATED VISCOUS. AT THE TIME THE HOLE WAS SEALED AND IT WAS DECIDED TO JUST PERFORM A WASH OUT AND LEAVE A DRAIN. SHE WAS CLINICALLY IMPROVING WITH RESOLVED TACHYCARDIA, AFEBRILE, BLOOD SUGAR CONTROLLED, AND TOLERATED CLEAR LIQUIDS. POD#6 HER QUYEN DRAIN THAT WAS PREVIOUSLY SEROUS TURNED FECULENT. A CT S CAN SHOWED A 5X6 WALLED OFF FLUID COLLECTION IN HER PELVIS. IT WAS DECIDED TO TAKE HER TO SURGERY FOR EXPLORATION, WASHOUT AND POSSIBLE COLOSTOMY. THE PROCEDURE WAS EXPLAINED AT LENGTH WITH THE PATIENT. DETAILS: PT WAS TAKEN TO THE OR AND GENERAL ANESTHESIA WAS INDUCED WITH ENDOTRACHEAL INTUBATION. SCDS WERE PLACED, A WALKER CATHETER WAS INSERTED UNDER STERILE CONDITIONS, AND HER ABDOMEN WAS PREPPED AND DRAPED IN STERILE FASHION AFTER HER LEGS WERE PLACED IN LITHOTOMY POSITION, AND ALL PRESSURE POINTS PADDED. A TIME OUT WAS PERFORMED AND THE PREVIOUS INCISION WAS OPENED AT THE SKIN AND FASCIA. THERE WAS SOME MURKY FLUID IMMEDIATLY. THE OMENTUM WAS LIFTED CEPHALED AND ATTENTION WAS DIRECTED TOWARDS THE PELVIS. THERE WAS STOOL NOTED TO BE OOZING FROM DEEP IN THE PELVIS. THE SIGMOID COLON WAS RETRACTED AND NOTED TO BE DENSELY ADHERED TO AN ADJACENT ABSCESS CAVITY. AFTER BLUNT DISSECTION WAS USED TO SEPARATE IT, THERE WAS NOTED TO BE A 0.5 HOLE IN THE SIGMOID COLON. IT WAS DECIDED AT THAT POINT TO PERFORM A SIGMOIDECTOMY AND IRVING'S POUCH. THE SIGMOID WAS CUT DISTALLY AND PROXIMALLY WITH GI STAPLERS. THE PROXIMAL COLON WAS MOBILIZED LATERALLY ALONG THE SIDE WALL ATTACHMENTS. THE PATIENT HAS A SHORT MESENTARY AND THICK ABDOMINAL WALL SO IT WAS IMPERATIVE WE TRY TO GET MUCH VASCULARIZED LENGTH POSSIBLE TO DETER THE END COLOSTOMY FROM RETRACTING. A 4CM SKIN [place] WAS EXCISED WITH THE FAT DOWN TO THE FASCIA. A CRUCIATE INCISION WAS MADE AND END COLOSTOMY WAS BROUGHT UP THROUGH THE ANTERIOR ABDOMINAL WALL. AT THIS POINT IT WAS DECIDED TO IRRIGATE THE ABDOMINAL CAVITY WITH WARM SALINE MIXED WITH BACITRACIN, AND THE DRAIN WAS REPOSITIONED IN THE PELVIS AND EXITED OUT OF THE RIGHT SIDE. THE FASCIA WAS CLOSED WITH A RUNNING #1 PDS. THE SIDES OF THE COLOSTOMY WERE SECURED AT FOUR POINTS TO THE FASCIA AND THEN THE COLOSTOMY WAS MATURED WITH 2-O VICRYL. COLOSTOMY APPLIANCE WAS PLACED. LOOSE KAY WERE PLACED AT THE SKIN WITH PLAIN PACKING IN BETWEEN THE KAY PRIOR TO MATURING THE OSTOMY. PATIENT WAS AWOKEN, EXTUBATED AND TAKEN TO RECOVERY IN STABLE CONDITION. ALL COUNTS WERE CORRECT. EBL: 200CC COMPLICATIONS: NONE IMMEDIATE ANESTHESIA: GETA SPECIMEN: SIGMOID COLON
[2018-09-20] MEDS ORDERED: TPN ADULT 2,400 ML IV SCH (20:00)
[2018-09-20] MEDS: MORPHINE IV PRN (21:21)
[2018-09-20] MEDS: ZOFRAN IV PRN (21:22)
[2018-09-20] MEDS: SODIUM CHLORIDE FLUSH SYRINGE 10 ML IV PRN (21:29)
[2018-09-20] MEDS: ATIVAN IV PRN (21:47)
[2018-09-21] MEDS: HumaLOG SUB-Q SCH ×4 (00:14→18:01)
[2018-09-21] MEDS: MORPHINE IV PRN ×4 (01:28→15:33)
[2018-09-21] MEDS: FLAGYL 500 MG/100 ML 500 MG/100 ML BAG IV SCH ×3 (05:18→22:08)
[2018-09-21 06:39] LABS: Hematocrit 21.3 % (30.3-42.9); Mean Corpuscular HGB Conc 33 % (30-34); Mean Corpuscular Volume 95 fl (79-97); Platelet Count 326 K/mm3 (140-440); Red Blood Count 2.24 M/mm3 (3.65-5.03)
[2018-09-21 07:01] LABS: BUN/Creatinine Ratio 29; Blood Urea Nitrogen 20 mg/dL (7-17); Calcium 7.3 mg/dL (8.4-10.2); Hemolysis Index 6
[2018-09-21] MEDS: TORADOL IV SCH (07:35)
[2018-09-21] MEDS ORDERED: MORPHINE IM ONE (09:11)
[2018-09-21] MEDS ORDERED: MORPHINE IV ONE (09:30)
--- NOTE | 2018-09-21 09:38 | Progress Note ---
Assessment and Plan Assessment and plan: 38 YO Female with HTN, DM, Obesity presents to ED by EMS for evaluation of abdomen over the past 2 days with worsening symptoms over the past 1 day. Pt seen and evaluated in ED and underwent CT Abdomen/Pelvis which revealed free air with suspected perforation complicated by peritonitis. Surgery team consulted in ED and emergently taken to the OR. Pt initiated on IV antibiotic therapy and admitted to IMCU. Purulent peritonitis and pelvic abscess with bowel perforation - due to perforated diverticulitis - Status post exploratory laparotomy with ABDOMINAL WASH OUT AND DRAIN PLACEMENT on 09/14 - Continue iv antibiotics, IV pain medications, - patient had abdominal pain and repeat CT Abd on 09/20 revealed pelvic abscess. Exploratory lap done 09/20/18 revealed perforation in the sigmoid colon with free fecal matter, fecal peritonitis. Abdominal wash out, sigmoid resection with Cherelle's pouch was done. Will increase Morphine to 4mg iv q 3prn Anemia Hgb 7.0 Transfuse 2 units PRBC Sepsis due to peritonitis and bowel perforation, pelvis abscess present on admission - Continue IV antibiotics, follow surgical culture - continue metronidazole, cefepime 2 gm IV q12 hours, fluconazole dose increased to 400 mg IV qday - per ID Diabetes mellitus type 2 uncontrolled - SSI every 6 hour, A1C 10.3 Hypertension, continue on on clonidine patch and labetalol IV as needed Hypocalcemia, repleted calcium, Hypoalbuminemia, due to poor oral intake and sepsis - Continue to monitor and treat underlying condition Hypocalcemia, replete and monitor, Hypomagnesemia. Replete and recheck in am DVT prophylaxis, Lovenox History Interval history: Abd pain, asking for more pain meds s/p surg yesterday Hospitalist Physical - Physical exam Narrative exam: Gen: Not in acute distress, lying in bed, obese HEENT: Normocephalic, atraumatic Neck: supple, no JVD Heart: S1 and S2 reg, no murmurs, rubs or gallop Lungs: Clear, no crackles, no wheeze Abd: soft, mild tender, covered with dressing, Ext: No edema, no clubbing, no cyanosis, Neuro: Awake,alert, moves all ext, non focal - Constitutional Vitals: Temp Pulse Resp BP Pulse Ox 98.4 F 90 17 80/50 99 09/21/18 04:00 09/21/18 06:00 09/21/18 06:00 09/21/18 06:00 09/21/18 08:30 General appearance: Present: obese Results - Labs CBC & Chem 7: 09/21/18 06:10 09/21/18 06:10 Labs: Laboratory Last Values WBC 27.1 K/mm3 (4.5-11.0) H 09/21/18 06:10 RBC 2.24 M/mm3 (3.65-5.03) L 09/21/18 06:10 Hgb 7.0 gm/dl (10.1-14.3) L 09/21/18 06:10 Hct 21.3 % (30.3-42.9) L 09/21/18 06:10 MCV 95 fl (79-97) 09/21/18 06:10 MCH 31 pg (28-32) 09/21/18 06:10 MCHC 33 % (30-34) 09/21/18 06:10 RDW 16.0 % (13.2-15.2) H 09/21/18 06:10 Plt Count 326 K/mm3 (140-440) 09/21/18 06:10 Lymph % (Auto) Production Intern 09/19/18 05:16 [place] % (Auto) Production Intern 09/19/18 05:16 Eos % (Auto) Production Intern 09/19/18 05:16 Baso % (Auto) Production Intern 09/19/18 05:16 Lymph # Production Intern 09/19/18 05:16 [place] # Production Intern 09/19/18 05:16 Eos # Production Intern 09/19/18 05:16 Baso # Production Intern 09/19/18 05:16 Add Manual Diff Complete 09/19/18 05:16 Total Counted 100 09/19/18 05:16 Seg Neutrophils % Production Intern 09/19/18 05:16 Seg Neuts % (Manual) 75.0 % (40.0-70.0) H 09/19/18 05:16 0 % 09/19/18 05:16 13.0 % (13.4-35.0) L 09/19/18 05:16 Reactive Lymphs % (Man) 0 % 09/19/18 05:16 2.0 % (0.0-7.3) 09/19/18 05:16 1.0 % (0.0-4.3) 09/19/18 05:16 0 % (0.0-1.8) 09/19/18 05:16 4.0 % 09/19/18 05:16 2.0 % 09/19/18 05:16 3.0 % 09/19/18 05:16 0 % 09/19/18 05:16 Nucleated RBC % 1.0 % (0.0-0.9) H 09/19/18 05:16 Seg Neutrophils # Production Intern 09/19/18 05:16 Seg Neutrophils # Man 12.2 K/mm3 (1.8-7.7) H 09/19/18 05:16 Band Neutrophils # 0.0 K/mm3 09/19/18 05:16 2.1 K/mm3 (1.2-5.4) 09/19/18 05:16 Abs React Lymphs (Man) 0.0 K/mm3 09/19/18 05:16 0.3 K/mm3 (0.0-0.8) 09/19/18 05:16 0.2 K/mm3 (0.0-0.4) 09/19/18 05:16 0.0 K/mm3 (0.0-0.1) 09/19/18 05:16 0.6 K/mm3 09/19/18 05:16 0.3 K/mm3 09/19/18 05:16 0.5 K/mm3 09/19/18 05:16 Blast Cells # 0.0 K/mm3 09/19/18 05:16 WBC Morphology Not Reportable 09/19/18 05:16 WBC Morphology TNR 09/19/18 05:16 Hypersegmented Neuts Not Reportable 09/19/18 05:16 Hyposegmented Neuts Not Reportable 09/19/18 05:16 Hypogranular Neuts Not Reportable 09/19/18 05:16 Not Reportable 09/19/18 05:16 Not Reportable 09/19/18 05:16 Not Reportable 09/19/18 05:16 Not Reportable 09/19/18 05:16 Not Reportable 09/19/18 05:16 Not Reportable 09/19/18 05:16 Consistent w auto 09/19/18 05:16 Not Reportable 09/19/18 05:16 Plt Clumps, EDTA Not Reportable 09/19/18 05:16 Not Reportable 09/19/18 05:16 Not Reportable 09/19/18 05:16 Not Reportable 09/19/18 05:16 Plt Morphology Comment Not Reportable 09/19/18 05:16 RBC Morphology Not Reportable 09/19/18 05:16 Dimorphic RBCs Not Reportable 09/19/18 05:16 Not Reportable 09/19/18 05:16 Few 09/19/18 05:16 Not Reportable 09/19/18 05:16 Few 09/19/18 05:16 Not Reportable 09/19/18 05:16 Not Reportable 09/19/18 05:16 Not Reportable 09/19/18 05:16 Not Reportable 09/19/18 05:16 Not Reportable 09/19/18 05:16 Rare 09/19/18 05:16 Not Reportable 09/19/18 05:16 Not Reportable 09/19/18 05:16 Not Reportable 09/19/18 05:16 Not Reportable 09/19/18 05:16 Not Reportable 09/19/18 05:16 Not Reportable 09/19/18 05:16 Not Reportable 09/19/18 05:16 Not Reportable 09/19/18 05:16 Not Reportable 09/19/18 05:16 Acanthocytes (Spur) Not Reportable 09/19/18 05:16 Rouleaux Not Reportable 09/19/18 05:16 Not Reportable 09/19/18 05:16 Not Reportable 09/19/18 05:16 Not Reportable 09/19/18 05:16 Not Reportable 09/19/18 05:16 Hem Pathologist Commnt Sent to pathology 09/19/18 05:16 Sodium 138 mmol/L (137-145) 09/21/18 06:10 Potassium 4.9 mmol/L (3.6-5.0) D 09/21/18 06:10 Chloride 103.7 mmol/L (98-107) 09/21/18 06:10 Carbon Dioxide 27 mmol/L (22-30) 09/21/18 06:10 12 mmol/L 09/21/18 06:10 BUN 20 mg/dL (7-17) H 09/21/18 06:10 0.7 mg/dL (0.7-1.2) 09/21/18 06:10 Estimated GFR > 60 ml/min 09/21/18 06:10 29 % 09/21/18 06:10 Glucose 270 mg/dL (65-100) H 09/21/18 06:10 POC Glucose 289 (70-105) H 09/21/18 05:14 10.3 % (4-6) H 09/15/18 Unknown Lactic Acid 1.60 mmol/L (0.7-2.0) 09/15/18 11:48 Calcium 7.3 mg/dL (8.4-10.2) L 09/21/18 06:10 Phosphorus 3.80 mg/dL (2.5-4.5) D 09/21/18 06:10 Magnesium 2.00 mg/dL (1.7-2.3) 09/21/18 06:10 3.30 mg/dL (0.1-1.2) H 09/15/18 02:30 AST 322 units/L (5-40) H 09/15/18 02:30 ALT 169 units/L (7-56) H 09/15/18 02:30 67 units/L (35-129) 09/15/18 02:30 5.4 g/dL (6.3-8.2) L 09/15/18 02:30 2.0 g/dL (3.9-5) L 09/15/18 02:30 0.6 % 09/15/18 02:30 HCG, Qual Negative (Negative) 09/14/18 12:06 Blood Type O POSITIVE 09/20/18 13:55 Antibody Screen Negative 09/20/18 13:55 Crossmatch See Detail 09/20/18 13:55 Active Medications - Current Medications Current Medications: Generic Name Dose Route Start Last Admin Trade Name Freq PRN Reason Stop Dose Admin Albuterol 2.5 mg 09/14/18 15:57 Proventil IH Q3HRT PRN Shortness Of Breath Clonidine HCl 0.2 mg 09/15/18 14:00 09/15/18 16:26 Catapres-Tts Patch TD 0.2 mg QWEEK AYLEEN Administration Dextrose 50 ml 09/14/18 15:59 D50w (25gm) Syringe IV PRN PRN Hypoglycemia Heparin Sodium (Porcine) 5,000 unit 09/15/18 22:00 09/20/18 21:28 Heparin SUB-Q 5,000 unit Q12HR AYLEEN Administration Hydralazine HCl 10 mg 09/18/18 12:34 09/18/18 13:26 Apresoline IV 10 mg Q30MIN PRN Administration Hypertension > 180/100 Hydromorphone HCl 0.5 mg 09/20/18 20:17 Dilaudid IV Q10MIN PRN Pain , Severe (7-10) Metronidazole 500 mg in 100 mls @ 100 mls/hr 09/14/18 22:00 09/21/18 05:18 Flagyl 500 Mg/100 Ml IV 100 mls/hr Q8HR AYLEEN Administration Protocol Fluconazole 200 mls @ 100 mls/hr 09/18/18 10:00 09/20/18 09:25 Diflucan IV 100 mls/hr Q24HR AYLEEN Administration Protocol Ceftriaxone Sodium 2 gm in 100 mls @ 200 mls/hr 09/19/18 13:00 09/20/18 09:24 Rocephin/Ns 2 Gm/100 Ml IV 09/21/18 12:59 200 mls/hr Q24HR AYLEEN Administration Protocol Amino Acids/Electrolytes/Dextrose 2,400 mls @ 100 mls/hr 09/20/18 20:00 09/20/18 21:24 Tpn Adult IV 09/21/18 19:59 100 mls/hr DAILY@2000 AYLEEN Administration Protocol Insulin Human Lispro 0 unit 09/14/18 18:00 09/21/18 05:20 Humalog SUB-Q 6 unit Q6HR AYLEEN Administration Protocol Labetalol HCl 10 mg 09/15/18 13:05 09/18/18 14:16 Normodyne IV 10 mg Q4H PRN Administration Hypertension Lorazepam 1 mg 09/15/18 09:30 09/20/18 21:47 Ativan IV 1 mg Q4H PRN Administration Agitation Morphine Sulfate 2 mg 09/20/18 12:33 09/21/18 07:41 Morphine IV 2 mg Q3H PRN Administration Pain, Moderate (4-6) Ondansetron HCl 4 mg 09/15/18 07:25 09/20/18 21:22 Zofran IV 4 mg Q4H PRN Administration Nausea And Vomiting Pantoprazole Sodium 40 mg 09/16/18 16:00 09/20/18 09:22 Protonix IV 40 mg QDAY AYLENE Administration Sodium Chloride 10 ml 09/14/18 15:57 09/20/18 21:29 Sodium Chloride Flush Syringe 10 Ml IV 10 ml PRN PRN Administration LINE FLUSH Nutrition/Malnutrition Assess - Dietary Evaluation Nutrition/Malnutrition Findings: Nutrition Notes Start: 09/18/18 09:34 Freq: Status: Active Protocol: Document 09/20/18 09:03 LP (Rec: 09/20/18 09:12 LP [id number]) Nutrition Notes Initial or Follow up Reassessment Current Diagnosis Diabetes,Hypertension Other Pertinent Diagnosis Purulent peritonitis sec to perforated diverticulitis s/p exp lap Current Diet Full liquid + PPN at 100ml/hr Labs/Tests Mg 1.5 Pertinent Medications Reviewed Height 5 ft 2 in Weight 90.7 kg [place] Body Weight (kg) 50.00 BMI 36.6 Subjective/Other Information PPN day 3. Pt states tolerating [place] diet and drinking some of supplement, but feels very gassy. Pt not consuming enough orally to stop PPN at this time. Percent of energy/protein needs met: 62%/100 Burn Absent Trauma Absent #1 Nutrition Diagnosis Altered GI function Diagnosis Progress(for reassessment Continues documentation) Is patient on ventilator? No Is Patient Ambulatory and/or Out of Bed Yes REE-([facility]-ambulatory/OOB) [ 2002.325 NUTR.[id number]] Kcal/Kg value to use for calculation 17 Approximate Energy Requirements Using 1542 kcal/Kg Calculation Used for Recommendations Kcal/kg Additional Notes Pro needs 1.2-1.5g/kg adjBW: 84-105g/day Fluid needs 1ml/kcal Nutrition Intervention Change Diet Order: PPN and [place] diet Nutrition Support: PPN at 100 ml/hr: decrease dextrose 4.2%, 19mEq Mg, Chloride: Acetate 25:75, MVI, Thiamine Osmolality 691 Kcal 620 Protein (gm) 70 Carbohydrates (gm) 100 Fat (gm) 0 Fluid (mL) 2,400 Fiber (gm) 0 Add Supplement/Snack (indicate name/kcal Glucerna Chocolate, Vanilla 1 /protein ) daily Provides kCal: 220 Provides Protein (gm) 10 Goal #1 PN and intakes to meet energy and pro needs as best possible Goal #2 BG control Anticipated Discharge Needs: GI soft consistent CHO diet Follow-Up By: 09/21/18 Additional Comments Labs in AM: BMP, Mg, Phos
[2018-09-21] MEDS ORDERED: NACL 0.9% 1000 ML 1,000 ML IV SCH (10:00)
[2018-09-21] MEDS ORDERED: NACL 0.9% 500 ML 500 ML ONE (10:04)
[2018-09-21] MEDS: DIFLUCAN 200 ML IV SCH (10:34)
[2018-09-21] MEDS: ROCEPHIN/NS 2 GM/100 ML 2 GM/100 ML BAG IV SCH (10:34)
[2018-09-21] MEDS: SODIUM CHLORIDE FLUSH SYRINGE 10 ML IV PRN (10:35)
[2018-09-21] MEDS: HEPARIN SUB-Q SCH ×2 (10:35→22:08)
[2018-09-21] MEDS: PROTONIX IV SCH (10:36)
--- NOTE | 2018-09-21 10:43 | Consultation ---
History of Present Illness - Reason for Consult Consult date: 09/21/18 Post-op management Requesting physician: BRISEIDA AYALA - History of Present Illness 38 y/o female, who recently had a procedure earlier in this hospital stay who is not transferred to the ICU post op from EXPLORATORY LAPAROTOMY, ABDOMINAL WASH OUT, SIGMOID RESECTION WITH IRVING'S POUCH. Patient was extubated and transitioned to the ICU. No acute events overnight. I went to evaluate patient at the bedside and she requested that I not come in at this time. Spoke with nursing who states that patient has been stable, with no acute issues. Past History Past Medical History: diabetes, hypertension, other (Obesity) Past Surgical History: Other (Right Index Finger amputation) Social history: , lives with family, other (marijuana use). denies: smoking, alcohol abuse, prescription drug abuse Family history: cancer, diabetes, hypertension Medications and Allergies Allergies Allergy/AdvReac Type Severity Reaction Status Date / Time No Known Allergies Allergy Unverified 09/14/18 11:54 Home Medications Medication Instructions Recorded Confirmed Last Taken Type Ciprofloxacin HCl [Ciprofloxacin 250 mg PO Q12H MDD FOR 5 DAYS 09/14/18 09/14/18 09/13/18 History TAB] Lisinopril/Hydrochlorothiazide 1 tab PO QDAY 09/14/18 09/14/18 09/13/18 History [Zestoretic 20-25 mg] metFORMIN [Glucophage] 500 mg PO BIDWM 09/14/18 09/14/18 09/13/18 History Active Meds: Active Medications Albuterol (Proventil) 2.5 mg IH Q3HRT PRN PRN Reason: Shortness Of Breath Clonidine HCl (Catapres-Tts Patch) 0.2 mg TD QWEEK [facility] Last Admin: 09/15/18 16:26 Dose: 0.2 mg Documented by: Dextrose (D50w (25gm) Syringe) 50 ml IV PRN PRN PRN Reason: Hypoglycemia Heparin Sodium (Porcine) (Heparin) 5,000 unit SUB-Q Q12HR [facility] Last Admin: 09/21/18 10:35 Dose: 5,000 unit Documented by: Hydralazine HCl (Apresoline) 10 mg IV Q30MIN PRN PRN Reason: Hypertension > 180/100 Last Admin: 09/18/18 13:26 Dose: 10 mg Documented by: Hydromorphone HCl (Dilaudid) 0.5 mg IV Q10MIN PRN PRN Reason: Pain , Severe (7-10) Metronidazole (Flagyl 500 Mg/100 Ml) 500 mg in 100 mls @ 100 mls/hr IV Q8HR AYLEEN; Protocol Last Admin: 09/21/18 05:18 Dose: 100 mls/hr Documented by: Fluconazole (Diflucan) 200 mls @ 100 mls/hr IV Q24HR AYLEEN; Protocol Last Admin: 09/21/18 10:34 Dose: 100 mls/hr Documented by: Ceftriaxone Sodium (Rocephin/Ns 2 Gm/100 Ml) 2 gm in 100 mls @ 200 mls/hr IV Q24HR AYLEEN; Protocol Stop: 09/21/18 12:59 Last Admin: 09/21/18 10:34 Dose: 200 mls/hr Documented by: Amino Acids/Electrolytes/Dextrose (Tpn Adult) 2,400 mls @ 100 mls/hr IV DAILY@2000 AYLEEN; Protocol Stop: 09/21/18 19:59 Last Admin: 09/20/18 21:24 Dose: 100 mls/hr Documented by: Sodium Chloride (Nacl 0.9% 1000 Ml) 1,000 mls @ 42 mls/hr IV DIRECT AYLEEN Insulin Human Lispro (Humalog) 0 unit SUB-Q Q6HR AYLEEN; Protocol Last Admin: 09/21/18 05:20 Dose: 6 unit Documented by: Labetalol HCl (Normodyne) 10 mg IV Q4H PRN PRN Reason: Hypertension Last Admin: 09/18/18 14:16 Dose: 10 mg Documented by: Lorazepam (Ativan) 1 mg IV Q4H PRN PRN Reason: Agitation Last Admin: 09/20/18 21:47 Dose: 1 mg Documented by: Morphine Sulfate (Morphine) 2 mg IV Q3H PRN PRN Reason: Pain, Moderate (4-6) Last Admin: 09/21/18 07:41 Dose: 2 mg Documented by: Ondansetron HCl (Zofran) 4 mg IV Q4H PRN PRN Reason: Nausea And Vomiting Last Admin: 09/20/18 21:22 Dose: 4 mg Documented by: Pantoprazole Sodium (Protonix) 40 mg IV QDAY [facility] Last Admin: 09/21/18 10:36 Dose: 40 mg Documented by: Sodium Chloride (Sodium Chloride Flush Syringe 10 Ml) 10 ml IV PRN PRN PRN Reason: LINE FLUSH Last Admin: 09/21/18 10:35 Dose: 10 ml Documented by: Review of Systems All systems: negative Exam - Physical Exam Narrative exam: Patient would not allow me to perform exam at this time. - Constitutional Vitals: Temp Pulse Resp BP Pulse Ox 98.4 F 90 17 80/50 99 09/21/18 04:00 09/21/18 06:00 09/21/18 06:00 09/21/18 06:00 09/21/18 08:30 Results - Labs CBC & Chem 7: 09/21/18 06:10 09/21/18 06:10 Labs: Abnormal lab results 09/20/18 09/20/18 09/20/18 Range/Units 11:46 13:55 19:41 WBC (4.5-11.0) K/mm3 RBC (3.65-5.03) M/mm3 Hgb (10.1-14.3) gm/dl Hct (30.3-42.9) % RDW (13.2-15.2) % BUN (7-17) mg/dL Glucose (65-100) mg/dL POC Glucose 326 H 288 H (70-105) Calcium (8.4-10.2) mg/dL Crossmatch See Detail 09/20/18 09/21/18 09/21/18 Range/Units 23:58 05:14 06:10 WBC (4.5-11.0) K/mm3 RBC (3.65-5.03) M/mm3 Hgb (10.1-14.3) gm/dl Hct (30.3-42.9) % RDW (13.2-15.2) % BUN 20 H (7-17) mg/dL Glucose 270 H (65-100) mg/dL POC Glucose 358 H 289 H (70-105) Calcium 7.3 L (8.4-10.2) mg/dL Crossmatch 09/21/18 Range/Units 06:10 WBC 27.1 H (4.5-11.0) K/mm3 RBC 2.24 L (3.65-5.03) M/mm3 Hgb 7.0 L (10.1-14.3) gm/dl Hct 21.3 L (30.3-42.9) % RDW 16.0 H (13.2-15.2) % BUN (7-17) mg/dL Glucose (65-100) mg/dL POC Glucose (70-105) Calcium (8.4-10.2) mg/dL Crossmatch Assessment and Plan 38 y/o female, post op day one from EXPLORATORY LAPAROTOMY, ABDOMINAL WASH OUT, SIGMOID RESECTION WITH IRVING'S POUCH. 1. Hemodynamics are stable 2. Spoke with surgery this am and we both are in agreement, would not transfuse as patient is only at HgB of 7. continue to monitor for now 3. Remains NPO until surgery evaluates and decides when stable to have PO 4. From a critical care standpoint, stable, suggest transfer out of unit to surgical floor.
[2018-09-21] MEDS ORDERED: MORPHINE IV PRN ×2 (10:51→11:05)
--- NOTE | 2018-09-21 11:40 | Progress Note ---
Assessment and Plan Cultures: Blood cultures 09/14/2018 no growth OR culture: rare growth of normal skin [email or web address] Assessment: 38 y/o female with history of diabetes, hypertension and obesity admitted on 09/14/2018 due to 2-week history of abdominal pain, nausea and poor appetite: 1) Sepsis: secondary to perforated viscus. Blood cultures 09/14/2018 no growth. 2) Feculent peritonitis and pelvic abscess from perforated sigmoid colon: underwent ex lap with abdominal washout on 09/14/2018, findings 1L free purulent fluid and pelvic abscess cavity, no active perforation. Required another ex lap, ABDOMINAL WASH OUT, SIGMOID RESECTION WITH IRVING'S POUCH on 09/20/2018. 3) Leukemoid reaction: secondary to above. Recommendations: - continue IV Ceftriaxone 2 gm every 24 hours, metronidazole 500mg IV every 8 hours and fluconazole 400mg IV qday. Plan for another 5 days from therapy from surgical source control - monitor leucocytosis Will follow along. [facility] C: [phone] O: [phone] F: [phone] Subjective Date of service: 09/21/18 Interval history: Went back to OR yesterday, found to have hole in sigmoid colon, underwent washout and colostomy. now in ICU. Stable. No fever. Objective - Exam Narrative Exam: Physical Exam: Constitutional: Alert, cooperative. No acute distress Head, Ears, Nose: Normocephalic, atraumatic. External ears, nose normal Eyes: Conjunctivae/corneas clear. No icterus. No ptosis. Neck: Supple, no meningeal signs Cardiovascular: S1, S2 normal. Respiratory: Good air entry, clear to auscultation bilaterally GI: Soft, dressing +, drain +, ostomy +; bowel sounds hypo Musculoskeletal: No pedal edema, no cyanosis. Skin: No rash or abscess Hem/Lymphatic: No palpable cervical or supraclavicular nodes. No lymphangitis Psych: Mood ok. Affect normal Neurological: Awake, alert, oriented. No gross abnormality - Constitutional Vitals: Vital Signs Temp Pulse Resp BP Pulse Ox 98.1 F 97 H 16 131/68 99 09/21/18 08:00 09/21/18 11:00 09/21/18 11:00 09/21/18 11:00 09/21/18 11:00 Temperature -Last 24 Hours Temperature 98.1 F Temperature 98.4 F Temperature 98.0 F Temperature 98.8 F Temperature 98.6 F Temperature 99.5 F - Labs CBC & Chem 7: 09/21/18 06:10 09/21/18 06:10 Labs: Abnormal lab results 09/20/18 09/20/18 09/20/18 Range/Units 11:46 13:55 19:41 WBC (4.5-11.0) K/mm3 RBC (3.65-5.03) M/mm3 Hgb (10.1-14.3) gm/dl Hct (30.3-42.9) % RDW (13.2-15.2) % BUN (7-17) mg/dL Glucose (65-100) mg/dL POC Glucose 326 H 288 H (70-105) Calcium (8.4-10.2) mg/dL Crossmatch See Detail 09/20/18 09/21/18 09/21/18 Range/Units 23:58 05:14 06:10 WBC (4.5-11.0) K/mm3 RBC (3.65-5.03) M/mm3 Hgb (10.1-14.3) gm/dl Hct (30.3-42.9) % RDW (13.2-15.2) % BUN 20 H (7-17) mg/dL Glucose 270 H (65-100) mg/dL POC Glucose 358 H 289 H (70-105) Calcium 7.3 L (8.4-10.2) mg/dL Crossmatch 09/21/18 Range/Units 06:10 WBC 27.1 H (4.5-11.0) K/mm3 RBC 2.24 L (3.65-5.03) M/mm3 Hgb 7.0 L (10.1-14.3) gm/dl Hct 21.3 L (30.3-42.9) % RDW 16.0 H (13.2-15.2) % BUN (7-17) mg/dL Glucose (65-100) mg/dL POC Glucose (70-105) Calcium (8.4-10.2) mg/dL Crossmatch - Imaging and cardiology CT scan - abdomen: report reviewed, image reviewed (fluid collection / pelvic abscess)
[2018-09-21] MEDS ORDERED: NARCAN 0.4 MG/1 ML IV PRN (11:54)
[2018-09-21] MEDS ORDERED: MORPHINE PCA 30MG/30ML IV SCH (12:00)
--- NOTE | 2018-09-21 12:34 | Progress Note ---
Assessment and Plan 38 yo F s/p exploratory laparotomy, Angel's procedure POD 1 POD#7 s/p ex lap for purulent peritonitis due to suspected perforated sigmoid Plan: 1. neuro - prn pain control. DIANETIC COUNSELOR would be ideal but backordered per pharmacy 2. CV - Hb 7, minimal blood loss during surgery. Will monitor. Hold on transfusion as patient is hemodynamically ok. 3. Resp - IS, pulm toilet, wean supplemental O2 4. GI - NPO, gentle IVF, TPN. PPI. NGT to LCWS. wound consult for ostomy teaching. Santiago drain - monitor output. Await bowel function. May have 1/2 cup ice chips per shift 5. - dc lopez 6. Endo - monitor blood glucose, SS coverage as needed 7. ID - on ceftriaxone and flagyl per ID 8. Musc - DVT ppx - heparin q8 SQ. PT consult 9. FEN - continue TPN and BMP daily. replace lytes as needed Ok to downgrade from ICU to 3B with remote tele Thank you, please call with questions. Subjective Date of service: 09/21/18 Narrative: Pt seen and examined. c/o abdominal pain mostly at the site of the ostomy. No f/c. no n/v. No cp, sob. Objective Vital Signs - 12hr 09/21/18 09/21/18 09/21/18 01:00 01:20 01:28 Temperature Pulse Rate 88 Pulse Rate [ 93 H From Monitor] Pulse Rate [ 93 H None] Respiratory 15 14 14 Rate Respiratory Rate [Abdomen] Blood Pressure 121/71 127/78 O2 Sat by Pulse 100 100 Oximetry 09/21/18 09/21/18 09/21/18 01:58 02:00 03:00 Temperature Pulse Rate 94 H 88 Pulse Rate [ From Monitor] Pulse Rate [ None] Respiratory 14 17 16 Rate Respiratory Rate [Abdomen] Blood Pressure 127/79 111/74 O2 Sat by Pulse 100 100 Oximetry 09/21/18 09/21/18 09/21/18 04:00 04:23 04:53 Temperature 98.4 F Pulse Rate 89 Pulse Rate [ 93 H From Monitor] Pulse Rate [ None] Respiratory 15 17 19 Rate Respiratory 14 Rate [Abdomen] Blood Pressure 127/83 O2 Sat by Pulse 100 Oximetry 09/21/18 09/21/18 09/21/18 05:00 05:57 06:00 Temperature Pulse Rate 88 90 Pulse Rate [ 93 H From Monitor] Pulse Rate [ None] Respiratory 16 14 17 Rate Respiratory Rate [Abdomen] Blood Pressure 112/85 80/50 O2 Sat by Pulse 100 100 100 Oximetry 09/21/18 09/21/18 09/21/18 07:00 08:00 08:30 Temperature 98.1 F Pulse Rate 93 H 93 H Pulse Rate [ From Monitor] Pulse Rate [ None] Respiratory 17 18 Rate Respiratory Rate [Abdomen] Blood Pressure 133/84 134/82 O2 Sat by Pulse 100 99 99 Oximetry 09/21/18 09/21/18 09/21/18 09:00 10:00 11:00 Temperature Pulse Rate 94 H 99 H 97 H Pulse Rate [ From Monitor] Pulse Rate [ None] Respiratory 21 18 16 Rate Respiratory Rate [Abdomen] Blood Pressure 120/82 119/91 131/68 O2 Sat by Pulse 98 94 99 Oximetry - General physical appearance Narrative Exam: Gen: AAOx3. NAD ENT: NGT with bilious output CV: S1, S2+ resp: even and unlabored Abd: soft, ND, moderate TTP near ostomy site. Dressing is c/d/i. Ostomy pink without stool or air in bag. Santiago drain serosang Ext: no c/c/e - Labs 09/21/18 06:10 09/21/18 06:10 Diabetes panel 09/21/18 Range/Units 06:10 Sodium 138 (137-145) mmol/L Potassium 4.9 D (3.6-5.0) mmol/L Chloride 103.7 (98-107) mmol/L Carbon Dioxide 27 (22-30) mmol/L BUN 20 H (7-17) mg/dL Creatinine 0.7 (0.7-1.2) mg/dL Glucose 270 H (65-100) mg/dL Calcium 7.3 L (8.4-10.2) mg/dL Calcium panel 09/21/18 Range/Units 06:10 Calcium 7.3 L (8.4-10.2) mg/dL Phosphorus 3.80 D (2.5-4.5) mg/dL Pituitary panel 09/21/18 Range/Units 06:10 Sodium 138 (137-145) mmol/L Potassium 4.9 D (3.6-5.0) mmol/L Chloride 103.7 (98-107) mmol/L Carbon Dioxide 27 (22-30) mmol/L BUN 20 H (7-17) mg/dL Creatinine 0.7 (0.7-1.2) mg/dL Glucose 270 H (65-100) mg/dL Calcium 7.3 L (8.4-10.2) mg/dL Adrenal panel 09/21/18 Range/Units 06:10 Sodium 138 (137-145) mmol/L Potassium 4.9 D (3.6-5.0) mmol/L Chloride 103.7 (98-107) mmol/L Carbon Dioxide 27 (22-30) mmol/L BUN 20 H (7-17) mg/dL Creatinine 0.7 (0.7-1.2) mg/dL Glucose 270 H (65-100) mg/dL Calcium 7.3 L (8.4-10.2) mg/dL
[2018-09-21] MEDS: DILAUDID IV PRN ×3 (13:24→22:16)
[2018-09-21] MEDS ORDERED: TPN ADULT 2,400 ML IV SCH (20:00)
[2018-09-22] MEDS: DILAUDID IV PRN ×5 (01:23→21:51)
[2018-09-22] MEDS: HumaLOG SUB-Q SCH ×4 (01:24→18:19)
[2018-09-22] MEDS: FLAGYL 500 MG/100 ML 500 MG/100 ML BAG IV SCH ×3 (05:11→21:34)
[2018-09-22 05:51] LABS: BUN/Creatinine Ratio 27; Blood Urea Nitrogen 19 mg/dL (7-17); Calcium 7.8 mg/dL (8.4-10.2); Hemolysis Index 4
[2018-09-22 06:10] LABS: Hemoglobin 6.1 gm/dl (10.1-14.3); Mean Corpuscular HGB Conc 33 % (30-34); Mean Corpuscular Volume 95 fl (79-97); Platelet Count 344 K/mm3 (140-440); Red Blood Count 1.98 M/mm3 (3.65-5.03); Red Cell Distribution Width 16.2 % (13.2-15.2)
[2018-09-22 06:15] LABS: Hematocrit 18.9 % (30.3-42.9)
[2018-09-22] MEDS: APRESOLINE IV PRN (08:21)
[2018-09-22] MEDS: MORPHINE IV PRN ×3 (08:22→14:50)
[2018-09-22] MEDS: PROTONIX IV SCH ×2 (08:23→10:25)
--- NOTE | 2018-09-22 08:44 | Progress Note ---
Assessment and Plan Assessment and plan: 38 YO Female with HTN, DM, Obesity presents to ED by EMS for evaluation of abdomen over the past 2 days with worsening symptoms over the past 1 day. Pt seen and evaluated in ED and underwent CT Abdomen/Pelvis which revealed free air with suspected perforation complicated by peritonitis. Surgery team consulted in ED and emergently taken to the OR. Pt initiated on IV antibiotic therapy and admitted to IMCU. Purulent peritonitis and pelvic abscess with bowel perforation - due to perforated diverticulitis - Status post exploratory laparotomy with abdominal wash out and drain placement on 09/14 - Continue iv antibiotics, IV pain medications, - patient had abdominal pain and repeat CT Abd on 09/20 revealed pelvic abscess. Exploratory lap done 09/20/18 revealed perforation in the sigmoid colon with free fecal matter, fecal peritonitis. Abdominal wash out, sigmoid resection with Cherelle's pouch was done. Increased Morphine to 4mg iv q 3prn TPN for nutrition Anemia Hgb 6.1 To transfuse 1 unit PRBC Repeat H/H in am Sepsis due to peritonitis and bowel perforation, pelvis abscess present on admi ssion - Continue IV antibiotics, follow surgical culture - continue metronidazole, cefepime 2 gm IV q12 hours, fluconazole dose increased to 400 mg IV qday - per ID Diabetes mellitus type 2 uncontrolled - SSI every 6 hour, A1C 10.3 Hypertension, continue on on clonidine patch and labetalol IV as needed Hypocalcemia, repleted calcium, Hypoalbuminemia, due to poor oral intake and sepsis - Continue to monitor and treat underlying condition Hypocalcemia, replete and monitor, Hypomagnesemia. Repleted DVT prophylaxis, Lovenox History Interval history: Abd pain improved Fever of 101 two days ago Hospitalist Physical - Physical exam Narrative exam: Gen: Not in acute distress, lying in bed, obese HEENT: Normocephalic, atraumatic Neck: supple, no JVD Heart: S1 and S2 reg, no murmurs, rubs or gallop Lungs: Clear, no crackles, no wheeze Abd: soft, mild tender, covered with dressing, ostomy present Ext: No edema, no clubbing, no cyanosis, Neuro: Awake,alert, moves all ext, non focal - Constitutional Vitals: Temp Pulse Resp BP Pulse Ox 98.1 F 96 H 20 147/105 92 09/22/18 07:18 09/22/18 08:21 09/22/18 07:18 09/22/18 08:21 09/22/18 07:18 General appearance: Present: obese Results - Labs CBC & Chem 7: 09/22/18 04:41 09/22/18 04:41 Labs: Laboratory Last Values WBC 26.1 K/mm3 (4.5-11.0) H 09/22/18 04:41 RBC 1.98 M/mm3 (3.65-5.03) L 09/22/18 04:41 Hgb 6.1 gm/dl (10.1-14.3) L 09/22/18 04:41 Hct 18.9 % (30.3-42.9) L* 09/22/18 04:41 MCV 95 fl (79-97) 09/22/18 04:41 MCH 31 pg (28-32) 09/22/18 04:41 MCHC 33 % (30-34) 09/22/18 04:41 RDW 16.2 % (13.2-15.2) H 09/22/18 04:41 Plt Count 344 K/mm3 (140-440) 09/22/18 04:41 Lymph % (Auto) Strategic Planning Analyst 09/19/18 05:16 [place] % (Auto) Strategic Planning Analyst 09/19/18 05:16 Eos % (Auto) Strategic Planning Analyst 09/19/18 05:16 Baso % (Auto) Strategic Planning Analyst 09/19/18 05:16 Lymph # Strategic Planning Analyst 09/19/18 05:16 [place] # Strategic Planning Analyst 09/19/18 05:16 Eos # Strategic Planning Analyst 09/19/18 05:16 Baso # Strategic Planning Analyst 09/19/18 05:16 Add Manual Diff Complete 09/19/18 05:16 Total Counted 100 09/19/18 05:16 Seg Neutrophils % Strategic Planning Analyst 09/19/18 05:16 Seg Neuts % (Manual) 75.0 % (40.0-70.0) H 09/19/18 05:16 0 % 09/19/18 05:16 13.0 % (13.4-35.0) L 09/19/18 05:16 Reactive Lymphs % (Man) 0 % 09/19/18 05:16 2.0 % (0.0-7.3) 09/19/18 05:16 1.0 % (0.0-4.3) 09/19/18 05:16 0 % (0.0-1.8) 09/19/18 05:16 4.0 % 09/19/18 05:16 2.0 % 09/19/18 05:16 3.0 % 09/19/18 05:16 0 % 09/19/18 05:16 Nucleated RBC % 1.0 % (0.0-0.9) H 09/19/18 05:16 Seg Neutrophils # Strategic Planning Analyst 09/19/18 05:16 Seg Neutrophils # Man 12.2 K/mm3 (1.8-7.7) H 09/19/18 05:16 Band Neutrophils # 0.0 K/mm3 09/19/18 05:16 2.1 K/mm3 (1.2-5.4) 09/19/18 05:16 Abs React Lymphs (Man) 0.0 K/mm3 09/19/18 05:16 0.3 K/mm3 (0.0-0.8) 09/19/18 05:16 0.2 K/mm3 (0.0-0.4) 09/19/18 05:16 0.0 K/mm3 (0.0-0.1) 09/19/18 05:16 0.6 K/mm3 09/19/18 05:16 0.3 K/mm3 09/19/18 05:16 0.5 K/mm3 09/19/18 05:16 Blast Cells # 0.0 K/mm3 09/19/18 05:16 WBC Morphology Not Reportable 09/19/18 05:16 WBC Morphology TNR 09/19/18 05:16 Hypersegmented Neuts Not Reportable 09/19/18 05:16 Hyposegmented Neuts Not Reportable 09/19/18 05:16 Hypogranular Neuts Not Reportable 09/19/18 05:16 Not Reportable 09/19/18 05:16 Not Reportable 09/19/18 05:16 Not Reportable 09/19/18 05:16 Not Reportable 09/19/18 05:16 Not Reportable 09/19/18 05:16 Not Reportable 09/19/18 05:16 Consistent w auto 09/19/18 05:16 Not Reportable 09/19/18 05:16 Plt Clumps, EDTA Not Reportable 09/19/18 05:16 Not Reportable 09/19/18 05:16 Not Reportable 09/19/18 05:16 Not Reportable 09/19/18 05:16 Plt Morphology Comment Not Reportable 09/19/18 05:16 RBC Morphology Not Reportable 09/19/18 05:16 Dimorphic RBCs Not Reportable 09/19/18 05:16 Not Reportable 09/19/18 05:16 Few 09/19/18 05:16 Not Reportable 09/19/18 05:16 Few 09/19/18 05:16 Not Reportable 09/19/18 05:16 Not Reportable 09/19/18 05:16 Not Reportable 09/19/18 05:16 Not Reportable 09/19/18 05:16 Not Reportable 09/19/18 05:16 Rare 09/19/18 05:16 Not Reportable 09/19/18 05:16 Not Reportable 09/19/18 05:16 Not Reportable 09/19/18 05:16 Not Reportable 09/19/18 05:16 Not Reportable 09/19/18 05:16 Not Reportable 09/19/18 05:16 Not Reportable 09/19/18 05:16 Not Reportable 09/19/18 05:16 Not Reportable 09/19/18 05:16 Acanthocytes (Spur) Not Reportable 09/19/18 05:16 Rouleaux Not Reportable 09/19/18 05:16 Not Reportable 09/19/18 05:16 Not Reportable 09/19/18 05:16 Not Reportable 09/19/18 05:16 Not Reportable 09/19/18 05:16 Hem Pathologist Commnt Sent to pathology 09/19/18 05:16 Sodium 139 mmol/L (137-145) 09/22/18 04:41 Potassium 4.5 mmol/L (3.6-5.0) 09/22/18 04:41 Chloride 103.0 mmol/L (98-107) 09/22/18 04:41 Carbon Dioxide 29 mmol/L (22-30) 09/22/18 04:41 12 mmol/L 09/22/18 04:41 BUN 19 mg/dL (7-17) H 09/22/18 04:41 0.7 mg/dL (0.7-1.2) 09/22/18 04:41 Estimated GFR > 60 ml/min 09/22/18 04:41 27 % 09/22/18 04:41 Glucose 241 mg/dL (65-100) H 09/22/18 04:41 POC Glucose 248 (70-105) H 09/22/18 06:29 10.3 % (4-6) H 09/15/18 Unknown Lactic Acid 1.60 mmol/L (0.7-2.0) 09/15/18 11:48 Calcium 7.8 mg/dL (8.4-10.2) L 09/22/18 04:41 Phosphorus 2.90 mg/dL (2.5-4.5) D 09/22/18 04:41 Magnesium 2.20 mg/dL (1.7-2.3) 09/22/18 04:41 3.30 mg/dL (0.1-1.2) H 09/15/18 02:30 AST 322 units/L (5-40) H 09/15/18 02:30 ALT 169 units/L (7-56) H 09/15/18 02:30 67 units/L (35-129) 09/15/18 02:30 5.4 g/dL (6.3-8.2) L 09/15/18 02:30 2.0 g/dL (3.9-5) L 09/15/18 02:30 0.6 % 09/15/18 02:30 Triglycerides 260 mg/dL (2-149) H 09/22/18 04:41 HCG, Qual Negative (Negative) 09/14/18 12:06 Blood Type O POSITIVE 09/20/18 13:55 Antibody Screen Negative 09/20/18 13:55 Crossmatch See Detail 09/20/18 13:55 Active Medications - Current Medications Current Medications: Generic Name Dose Route Start Last Admin Trade Name Freq PRN Reason Stop Dose Admin Albuterol 2.5 mg 09/14/18 15:57 Proventil IH Q3HRT PRN Shortness Of Breath Clonidine HCl 0.2 mg 09/15/18 14:00 09/15/18 16:26 Catapres-Tts Patch TD 0.2 mg QWEEK AYLEEN Administration Dextrose 50 ml 09/14/18 15:59 D50w (25gm) Syringe IV PRN PRN Hypoglycemia Heparin Sodium (Porcine) 5,000 unit 09/15/18 22:00 09/21/18 22:08 Heparin SUB-Q 5,000 unit Q12HR AYLEEN Administration Hydralazine HCl 10 mg 09/18/18 12:34 09/22/18 08:21 Apresoline IV 10 mg Q30MIN PRN Administration Hypertension > 180/100 Hydromorphone HCl 0.5 mg 09/21/18 13:00 09/22/18 05:11 Dilaudid IV 0.5 mg Q3H PRN Administration Pain , Severe (7-10) Metronidazole 500 mg in 100 mls @ 100 mls/hr 09/14/18 22:00 09/22/18 05:11 Flagyl 500 Mg/100 Ml IV 100 mls/hr Q8HR AYLEEN Administration Protocol Fluconazole 200 mls @ 100 mls/hr 09/18/18 10:00 09/21/18 10:34 Diflucan IV 100 mls/hr Q24HR [facility] Administration Protocol Sodium Chloride 1,000 mls @ 42 mls/hr 09/21/18 10:00 Nacl 0.9% 1000 Ml IV DIRECT AYLEEN Amino Acids/Electrolytes/Dextrose 2,400 mls @ 100 mls/hr 09/21/18 20:00 07/06/07 20:05 Tpn Adult IV 09/22/18 19:59 100 mls/hr DAILY@2000 [facility] Administration Protocol Ceftriaxone Sodium 2 gm in 100 mls @ 200 mls/hr 09/22/18 10:00 Rocephin/Ns 2 Gm/100 Ml IV Q24HR [facility] Protocol Insulin Human Isoph/Insulin Regular 10 unit 09/21/18 14:00 09/22/18 08:23 Humulin 70/30 SUB-Q 10 unit BIDDIAB AYLEEN Administration Insulin Human Lispro 0 unit 09/14/18 18:00 09/22/18 06:37 Humalog SUB-Q 4 unit Q6HR AYLEEN Administration Protocol Labetalol HCl 10 mg 09/15/18 13:05 09/18/18 14:16 Normodyne IV 10 mg Q4H PRN Administration Hypertension Lorazepam 1 mg 09/15/18 09:30 09/20/18 21:47 Ativan IV 1 mg Q4H PRN Administration Agitation Morphine Sulfate 2 mg 09/21/18 13:00 09/22/18 08:22 Morphine IV 2 mg Q3H PRN Administration Pain, Moderate (4-6) Naloxone HCl 0.1 mg 09/21/18 11:54 Narcan 0.4 Mg/1 Ml IV Q2MIN PRN Res Rate </= 8 or 02 SAT < 92% Ondansetron HCl 4 mg 09/15/18 07:25 09/20/18 21:22 Zofran IV 4 mg Q4H PRN Administration Nausea And Vomiting Pantoprazole Sodium 40 mg 09/16/18 16:00 09/22/18 08:23 Protonix IV 40 mg QDAY AYLEEN Administration Sodium Chloride 10 ml 09/14/18 15:57 09/21/18 10:35 Sodium Chloride Flush Syringe 10 Ml IV 10 ml PRN PRN Administration LINE FLUSH Nutrition/Malnutrition Assess - Dietary Evaluation Nutrition/Malnutrition Findings: Nutrition Notes Start: 09/18/18 09:34 Freq: Status: Active Protocol: Document 09/21/18 15:56 RM (Rec: 09/21/18 16:01 RM [id number]) Nutrition Notes Initial or Follow up Reassessment Current Diagnosis Diabetes,Hypertension Other Pertinent Diagnosis Purulent peritonitis sec to perforated diverticulitis s/p colectomy Current Diet NPO + PPN at 100 ml/hr Labs/Tests K 4.9 Pertinent Medications Reviewed Height 5 ft 2 in Weight 91.7 kg [place] Body Weight (kg) 50.00 BMI 36.9 Subjective/Other Information PPN day 4. Pt had colectomy yesterday. Percent of energy/protein needs met: 40%/83% Burn Absent Trauma Absent #1 Nutrition Diagnosis Altered GI function Diagnosis Progress(for reassessment Continues documentation) Is patient on ventilator? No Is Patient Ambulatory and/or Out of Bed Yes REE-([facility]-ambulatory/OOB) [ 2015.325 [id number].[id number]] Kcal/Kg value to use for calculation 17 Approximate Energy Requirements Using 1559 kcal/Kg Calculation Used for Recommendations Kcal/kg Additional Notes Pro needs 1.2-1.5g/kg adjBW: 84-105g/day Fluid needs 1ml/kcal Nutrition Intervention Nutrition Support: PPN at 100 ml/hr: 3.5% AA, 40 mEq K Kcal 676 Protein (gm) 84 Carbohydrates (gm) 100 Fat (gm) 0 Fluid (mL) 2,400 Fiber (gm) 0 Goal #1 PN to meet energy and pro needs as best possible Goal #2 BG control Anticipated Discharge Needs: Unable to determine at this time Follow-Up By: 09/22/18 Additional Comments Follow for labs in AM: BMP, Mg , Phos, TG
--- NOTE | 2018-09-22 09:28 | Progress Note ---
Assessment and Plan 38 y/o female, post op day one from EXPLORATORY LAPAROTOMY, ABDOMINAL WASH OUT, SIGMOID RESECTION WITH IRVING'S POUCH. 1. From a critical care standpoint stable will sign off 2. Transfusion per surgery and primary team. Subjective Date of service: 09/22/18 Interval history: Successful transfer out of ICU. HgB is now 6.1 this am. Vitals are stable, actually hypotensive. Objective - Constitutional Vitals: Vital Signs - 12hr 09/21/18 09/21/18 09/21/18 22:00 22:16 23:28 Temperature Pulse Rate Pulse Rate [ 95 H From Monitor] Respiratory 18 Rate Respiratory Rate [Abdomen] Blood Pressure O2 Sat by Pulse 97 Oximetry 09/22/18 09/22/18 09/22/18 00:00 00:37 01:23 Temperature 98.1 F Pulse Rate 96 H 95 H Pulse Rate [ From Monitor] Respiratory 20 20 Rate Respiratory 20 Rate [Abdomen] Blood Pressure 146/101 O2 Sat by Pulse 92 Oximetry 09/22/18 09/22/18 09/22/18 04:51 05:11 07:18 Temperature 98.6 F 98.1 F Pulse Rate 98 H 95 H Pulse Rate [ From Monitor] Respiratory 20 18 20 Rate Respiratory Rate [Abdomen] Blood Pressure 144/97 147/105 O2 Sat by Pulse 94 92 Oximetry 09/22/18 08:21 Temperature Pulse Rate 96 H Pulse Rate [ From Monitor] Respiratory Rate Respiratory Rate [Abdomen] Blood Pressure 147/105 O2 Sat by Pulse Oximetry General appearance: Present: no acute distress, well-nourished, obese - EENT Eyes: PERRL, EOM intact ENT: hearing intact - Neck Neck: supple - Respiratory Respiratory effort: normal Respiratory: bilateral: CTA - Breasts Breasts: deferred - Cardiovascular Rhythm: regular - Gastrointestinal General gastrointestinal: Present: other (post surgical changes) - Labs CBC & Chem 7: 09/22/18 04:41 09/22/18 04:41 Labs: Abnormal lab results 09/21/18 09/22/18 09/22/18 Range/Units 13:15 00:57 04:41 WBC (4.5-11.0) K/mm3 RBC (3.65-5.03) M/mm3 Hgb (10.1-14.3) gm/dl Hct (30.3-42.9) % RDW (13.2-15.2) % BUN 19 H (7-17) mg/dL Glucose 241 H (65-100) mg/dL POC Glucose 301 H 241 H (70-105) Calcium 7.8 L (8.4-10.2) mg/dL Triglycerides 260 H (2-149) mg/dL 09/22/18 09/22/18 Range/Units 04:41 06:29 WBC 26.1 H (4.5-11.0) K/mm3 RBC 1.98 L (3.65-5.03) M/mm3 Hgb 6.1 L (10.1-14.3) gm/dl Hct 18.9 L* (30.3-42.9) % RDW 16.2 H (13.2-15.2) % BUN (7-17) mg/dL Glucose (65-100) mg/dL POC Glucose 248 H (70-105) Calcium (8.4-10.2) mg/dL Triglycerides (2-149) mg/dL Medications & Allergies - Medications Allergies/Adverse Reactions: Allergies No Known Allergies Allergy (Unverified 09/14/18 11:54) Home Medications: Home Medications Medication Instructions Recorded Confirmed Last Taken Type Ciprofloxacin HCl [Ciprofloxacin 250 mg PO Q12H MDD FOR 5 DAYS 09/14/18 09/14/18 09/13/18 History TAB] Lisinopril/Hydrochlorothiazide 1 tab PO QDAY 09/14/18 09/14/18 09/13/18 History [Zestoretic 20-25 mg] metFORMIN [Glucophage] 500 mg PO BIDWM 09/14/18 09/14/18 09/13/18 History Active Medications: Generic Name Dose Route Start Last Admin Trade Name Freq PRN Reason Stop Dose Admin Albuterol 2.5 mg 09/14/18 15:57 Proventil IH Q3HRT PRN Shortness Of Breath Clonidine HCl 0.2 mg 09/15/18 14:00 09/15/18 16:26 Catapres-Tts Patch TD 0.2 mg QWEEK AYLEEN Administration Dextrose 50 ml 09/14/18 15:59 D50w (25gm) Syringe IV PRN PRN Hypoglycemia Heparin Sodium (Porcine) 5,000 unit 09/15/18 22:00 09/21/18 22:08 Heparin SUB-Q 5,000 unit Q12HR AYLEEN Administration Hydralazine HCl 10 mg 09/18/18 12:34 09/22/18 08:21 Apresoline IV 10 mg Q30MIN PRN Administration Hypertension > 180/100 Hydromorphone HCl 0.5 mg 09/21/18 13:00 09/22/18 05:11 Dilaudid IV 0.5 mg Q3H PRN Administration Pain , Severe (7-10) Metronidazole 500 mg in 100 mls @ 100 mls/hr 09/14/18 22:00 09/22/18 05:11 Flagyl 500 Mg/100 Ml IV 100 mls/hr Q8HR AYLEEN Administration Protocol Fluconazole 200 mls @ 100 mls/hr 09/18/18 10:00 09/21/18 10:34 Diflucan IV 100 mls/hr Q24HR AYLEEN Administration Protocol Sodium Chloride 1,000 mls @ 42 mls/hr 09/21/18 10:00 Nacl 0.9% 1000 Ml IV DIRECT AYLEEN Amino Acids/Electrolytes/Dextrose 2,400 mls @ 100 mls/hr 09/21/18 20:00 09/21/18 20:05 Tpn Adult IV 09/22/18 19:59 100 mls/hr DAILY@2000 [facility] Administration Protocol Ceftriaxone Sodium 2 gm in 100 mls @ 200 mls/hr 09/22/18 10:00 Rocephin/Ns 2 Gm/100 Ml IV Q24HR [facility] Protocol Insulin Human Isoph/Insulin Regular 10 unit 09/21/18 14:00 09/22/18 08:23 Humulin 70/30 SUB-Q 10 unit BIDDIAB AYLEEN Administration Insulin Human Lispro 0 unit 09/14/18 18:00 09/22/18 06:37 Humalog SUB-Q 4 unit Q6HR AYLEEN Administration Protocol Labetalol HCl 10 mg 09/15/18 13:05 09/18/18 14:16 Normodyne IV 10 mg Q4H PRN Administration Hypertension Lorazepam 1 mg 09/15/18 09:30 09/20/18 21:47 Ativan IV 1 mg Q4H PRN Administration Agitation Morphine Sulfate 2 mg 09/21/18 13:00 09/22/18 08:22 Morphine IV 2 mg Q3H PRN Administration Pain, Moderate (4-6) Naloxone HCl 0.1 mg 09/21/18 11:54 Narcan 0.4 Mg/1 Ml IV Q2MIN PRN Res Rate </= 8 or 02 SAT < 92% Ondansetron HCl 4 mg 09/15/18 07:25 09/20/18 21:22 Zofran IV 4 mg Q4H PRN Administration Nausea And Vomiting Pantoprazole Sodium 40 mg 09/16/18 16:00 09/22/18 08:23 Protonix IV 40 mg QDAY AYLEEN Administration Sodium Chloride 10 ml 09/14/18 15:57 09/21/18 10:35 Sodium Chloride Flush Syringe 10 Ml IV 10 ml PRN PRN Administration LINE FLUSH
[2018-09-22] MEDS: ROCEPHIN/NS 2 GM/100 ML 2 GM/100 ML BAG IV SCH (09:55)
--- NOTE | 2018-09-22 11:17 | Progress Note ---
Assessment and Plan - Patient Problems (1) Perforated bowel Current Visit: Yes Status: Acute Plan to address problem: 38 yo F s/p exploratory laparotomy, Angel's procedure POD 2 POD#8 s/p ex lap for purulent peritonitis due to suspected perforated sigmoid Plan: 1. neuro - prn pain control. 2. CV - Hb 6.1, agree with Hospitalist plan for 1u Transfusion 3. Resp - IS, pulm toilet, wean supplemental O2 - instructed at bedside. 4. GI - try clears today, gentle IVF, TPN. PPI. NGT-clamp today. wound consult for ostomy teaching. Santiago drain - monitor output. Await bowel function. 5. - dc lopez 6. Endo - monitor blood glucose, SS coverage as needed 7. ID - on ceftriaxone and flagyl per ID 8. Musc - DVT ppx - hold heparin as Hgb down and NGT has reddish appearance. PT consult 9. FEN - continue TPN and BMP daily. replace lytes as needed Subjective Date of service: 09/22/18 Patient Reports: Positive: no new complaints, other (thirsty). Negative: nausea, vomiting Objective Vital Signs - 12hr 09/21/18 09/22/18 09/22/18 23:28 00:00 00:37 Temperature 98.1 F Pulse Rate 96 H 95 H Pulse Rate [ 95 H From Monitor] Respiratory 20 Rate Respiratory 20 Rate [Abdomen] Blood Pressure 146/101 O2 Sat by Pulse 92 Oximetry 09/22/18 09/22/18 09/22/18 01:23 04:51 05:11 Temperature 98.6 F Pulse Rate 98 H Pulse Rate [ From Monitor] Respiratory 20 20 18 Rate Respiratory Rate [Abdomen] Blood Pressure 144/97 O2 Sat by Pulse 94 Oximetry 09/22/18 09/22/18 09/22/18 07:18 08:21 10:10 Temperature 98.1 F 97.6 F Pulse Rate 95 H 96 H 107 H Pulse Rate [ From Monitor] Respiratory 20 18 Rate Respiratory Rate [Abdomen] Blood Pressure 147/105 147/105 161/99 O2 Sat by Pulse 92 94 Oximetry - General physical appearance no distress, no pain - Eyes normal occular movement - ENT other (NGT with reddish drainage in tubing and canister) - Respiratory normal expansion, normal respiratory effort, clear to auscultation - Abdomen soft, tender (appropriate), bowel sounds hypoactive, not distended, not guarding, not rigid, surgical scars (dressing with minimal drainage), other (o stomy is pink. No gas/stool in bag.) - Integumentary no rash, no growths, no abnormal pigmentation - Psychiatric oriented to time, oriented to person, oriented to place, speech is normal, memory intact - Labs 09/22/18 04:41 09/22/18 04:41 Diabetes panel 09/22/18 Range/Units 04:41 Sodium 139 (137-145) mmol/L Potassium 4.5 (3.6-5.0) mmol/L Chloride 103.0 (98-107) mmol/L Carbon Dioxide 29 (22-30) mmol/L BUN 19 H (7-17) mg/dL Creatinine 0.7 (0.7-1.2) mg/dL Glucose 241 H (65-100) mg/dL Calcium 7.8 L (8.4-10.2) mg/dL Triglycerides 260 H (2-149) mg/dL Calcium panel 09/22/18 Range/Units 04:41 Calcium 7.8 L (8.4-10.2) mg/dL Phosphorus 2.90 D (2.5-4.5) mg/dL Pituitary panel 09/22/18 Range/Units 04:41 Sodium 139 (137-145) mmol/L Potassium 4.5 (3.6-5.0) mmol/L Chloride 103.0 (98-107) mmol/L Carbon Dioxide 29 (22-30) mmol/L BUN 19 H (7-17) mg/dL Creatinine 0.7 (0.7-1.2) mg/dL Glucose 241 H (65-100) mg/dL Calcium 7.8 L (8.4-10.2) mg/dL Adrenal panel 09/22/18 Range/Units 04:41 Sodium 139 (137-145) mmol/L Potassium 4.5 (3.6-5.0) mmol/L Chloride 103.0 (98-107) mmol/L Carbon Dioxide 29 (22-30) mmol/L BUN 19 H (7-17) mg/dL Creatinine 0.7 (0.7-1.2) mg/dL Glucose 241 H (65-100) mg/dL Calcium 7.8 L (8.4-10.2) mg/dL
--- NOTE | 2018-09-22 12:13 | Progress Note ---
Assessment and Plan Cultures: Blood cultures 09/14/2018 no growth OR culture: rare growth of normal skin oswaldo Assessment: 38 y/o female with history of diabetes, hypertension and obesity admitted on 09/14/2018 due to 2-week history of abdominal pain, nausea and poor appetite: 1) Sepsis: secondary to perforated viscus. Blood cultures 09/14/2018 no growth. 2) Feculent peritonitis and pelvic abscess from perforated sigmoid colon: underwent ex lap with abdominal washout on 09/14/2018, findings 1L free purulent fluid and pelvic abscess cavity, no active perforation. Required another ex lap, ABDOMINAL WASH OUT, SIGMOID RESECTION WITH IRVING'S POUCH on 09/20/2018. 3) Leukemoid reaction: secondary to above. Recommendations: - continue IV Ceftriaxone 2 gm every 24 hours, metronidazole 500mg IV every 8 hours and fluconazole 400mg IV qday. Day 2 of 5 days from surgical source control - monitor leucocytosis Will follow along. Lexa Prince MD, FACP [facility] C: [phone] O: [phone] F: [phone] Subjective Date of service: 09/22/18 Interval history: No fever. Up sitting in a chair. Planned for clear liquids. Hasn't passed any gas in ostomy per RN. Objective - Exam Narrative Exam: Physical Exam: Constitutional: Alert, cooperative. No acute distress Head, Ears, Nose: Normocephalic, atraumatic. External ears, nose normal Eyes: Conjunctivae/corneas clear. No icterus. No ptosis. Neck: Supple, no meningeal signs Cardiovascular: S1, S2 normal. Respiratory: Good air entry, clear to auscultation bilaterally GI: Soft, dressing +, drain +, ostomy +; bowel sounds - Musculoskeletal: No pedal edema, no cyanosis. Skin: No rash or abscess Hem/Lymphatic: No palpable cervical or supraclavicular nodes. No lymphangitis Psych: Mood ok. Affect normal Neurological: Awake, alert, oriented. No gross abnormality - Constitutional Vitals: Vital Signs Temp Pulse Resp BP Pulse Ox 97.6 F 107 H 18 161/99 94 09/22/18 10:10 09/22/18 10:10 09/22/18 10:10 09/22/18 10:10 09/22/18 10:10 Temperature -Last 24 Hours Temperature 97.6 F Temperature 98.1 F Temperature 98.6 F Temperature 98.1 F Temperature 98.1 F Temperature 98.4 F - Labs CBC & Chem 7: 09/22/18 04:41 09/22/18 04:41 Labs: Abnormal lab results 09/21/18 09/22/18 09/22/18 Range/Units 13:15 00:57 04:41 WBC (4.5-11.0) K/mm3 RBC (3.65-5.03) M/mm3 Hgb (10.1-14.3) gm/dl Hct (30.3-42.9) % RDW (13.2-15.2) % BUN 19 H (7-17) mg/dL Glucose 241 H (65-100) mg/dL POC Glucose 301 H 241 H (70-105) Calcium 7.8 L (8.4-10.2) mg/dL Triglycerides 260 H (2-149) mg/dL 09/22/18 09/22/18 09/22/18 Range/Units 04:41 06:29 12:07 WBC 26.1 H (4.5-11.0) K/mm3 RBC 1.98 L (3.65-5.03) M/mm3 Hgb 6.1 L (10.1-14.3) gm/dl Hct 18.9 L* (30.3-42.9) % RDW 16.2 H (13.2-15.2) % BUN (7-17) mg/dL Glucose (65-100) mg/dL POC Glucose 248 H 234 H (70-105) Calcium (8.4-10.2) mg/dL Triglycerides (2-149) mg/dL
[2018-09-22] MEDS: CARAFATE PO SCH ×2 (12:42→18:18)
[2018-09-22] MEDS: DIFLUCAN 200 ML IV SCH (12:42)
[2018-09-22] MEDS ORDERED: NACL 0.9% 250ML 250 ML ONE (14:24)
[2018-09-22] MEDS: CATAPRES-TTS PATCH TD SCH (18:19)
[2018-09-22] MEDS ORDERED: TPN ADULT 2,400 ML IV SCH (20:00)
[2018-09-23] MEDS ORDERED: NORCO PO PRN (00:15)
[2018-09-23] MEDS ORDERED: BANOPHEN PO PRN (00:16)
[2018-09-23] MEDS: CARAFATE PO SCH ×5 (00:59→19:16)
[2018-09-23] MEDS: DILAUDID IV PRN ×5 (00:59→20:12)
[2018-09-23] MEDS: ZOFRAN IV PRN (05:10)
[2018-09-23] MEDS: FLAGYL 500 MG/100 ML 500 MG/100 ML BAG IV SCH ×3 (05:23→21:48)
[2018-09-23] MEDS: HumaLOG SUB-Q SCH ×4 (05:39→18:17)
[2018-09-23] MEDS: APRESOLINE IV PRN ×2 (06:01→12:03)
--- NOTE | 2018-09-23 06:02 | Event Note ---
Date: 09/23/18 Received call from RACHEL Ferrell. Pt midline line was leaking and TPN was stopped. Peripheral IV started, and she was started on IVF. Pt has been very combative, rude/ inappropriate to nursing staff, refusing medications and refusing care. I went to bedside and spoke with pt in detail. Pt mentioned that she wants a transfer KHANG to another facility because she doesn't feel comfortable with the care that is being provided by the maintenance technician 3rd shift nurses. She states that she has no issues with the care received during the day but "the nights are horrible". I explained the facility transfer process to pt, and she decided that she would discuss with family in the morning before making a decision.
[2018-09-23] MEDS: MORPHINE IV PRN (08:48)
[2018-09-23 08:57] LABS: Hematocrit 24.5 % (30.3-42.9); Hemoglobin 8.1 gm/dl (10.1-14.3); Mean Corpuscular HGB Conc 33 % (30-34); Mean Corpuscular Volume 94 fl (79-97); Platelet Count 382 K/mm3 (140-440); Red Cell Distribution Width 16.3 % (13.2-15.2)
[2018-09-23 09:23] LABS: BUN/Creatinine Ratio 20; Blood Urea Nitrogen 12 mg/dL (7-17); Calcium 7.9 mg/dL (8.4-10.2); Hemolysis Index 1
[2018-09-23] MEDS: ROCEPHIN/NS 2 GM/100 ML 2 GM/100 ML BAG IV SCH (09:47)
--- NOTE | 2018-09-23 10:18 | Progress Note ---
Assessment and Plan Cultures: Blood cultures 09/14/2018 no growth OR culture: rare growth of normal skin oswaldo Assessment: 38 y/o female with history of diabetes, hypertension and obesity admitted on 09/14/2018 due to 2-week history of abdominal pain, nausea and poor appetite: 1) Sepsis: WBC trending down. secondary to perforated viscus. Blood cultures 09/14/2018 no growth. 2) Feculent peritonitis and pelvic abscess from perforated sigmoid colon: underwent ex lap with abdominal washout on 09/14/2018, findings 1L free purulent fluid and pelvic abscess cavity, no active perforation. Required another ex lap, ABDOMINAL WASH OUT, SIGMOID RESECTION WITH IRVING'S POUCH on 09/20/2018. 3) Leukemoid reaction: secondary to above. Recommendations: - continue IV Ceftriaxone 2 gm every 24 hours, metronidazole 500mg IV every 8 hours and fluconazole 400mg IV qday. Day 3 of 5 days from surgical source control - monitor leucocytosis Dr. Martin is wildlife control operator this weekend [phone], please call for questions. Dr. Prince will round on Wednesday. [facility] M: [phone] O:[phone] Subjective Date of service: 09/23/18 Interval history: Patient seen and examined. Laying in bed. Reports continued abdominal pain, h owever improving. no fevers. Objective - Exam Narrative Exam: Constitutional: Alert, cooperative. Mild distress reported Head, Ears, Nose: Normocephalic, atraumatic. External ears, nose normal Eyes: Conjunctivae/corneas clear. No icterus. No ptosis. Neck: Supple, no meningeal signs Cardiovascular: S1, S2 normal. Respiratory: Good air entry, clear to auscultation bilaterally GI: Soft, dressing +, drain +, ostomy +; bowel sounds - Musculoskeletal: No pedal edema, no cyanosis. Skin: No rash or abscess Hem/Lymphatic: No palpable cervical or supraclavicular nodes. No lymphangitis Psych: Mood ok. Affect normal Neurological: Awake, alert, oriented. No gross abnormalit - Constitutional Vitals: Vital Signs Temp Pulse Resp BP Pulse Ox 98.1 F 102 H 18 181/110 95 09/23/18 07:39 09/23/18 07:39 09/23/18 07:39 09/23/18 07:39 09/23/18 07:39 Temperature -Last 24 Hours Temperature 98.1 F Temperature 98.8 F Temperature 97.3 F Temperature 98.6 F Temperature 98.2 F Temperature 98.2 F Temperature 98.5 F Temperature 97.2 F Temperature 98.6 F Temperature 98.6 F Temperature 98.8 F Temperature 98.4 F Temperature 98.4 F Temperature 98.4 F Temperature 98.4 F Temperature 98.4 F Temperature 97.8 F Temperature 98.8 F Temperature 97 F Temperature 97.6 F - Labs CBC & Chem 7: 09/23/18 07:56 09/23/18 07:51 Labs: Abnormal lab results 09/20/18 09/22/18 09/22/18 Range/Units 13:55 12:07 16:28 WBC (4.5-11.0) K/mm3 RBC (3.65-5.03) M/mm3 Hgb (10.1-14.3) gm/dl Hct (30.3-42.9) % RDW (13.2-15.2) % Creatinine (0.7-1.2) mg/dL Glucose (65-100) mg/dL POC Glucose 234 H 289 H (70-105) Calcium (8.4-10.2) mg/dL Crossmatch See Detail 09/23/18 09/23/18 09/23/18 Range/Units 00:06 07:51 07:56 WBC 22.9 H (4.5-11.0) K/mm3 RBC 2.60 L (3.65-5.03) M/mm3 Hgb 8.1 L (10.1-14.3) gm/dl Hct 24.5 L (30.3-42.9) % RDW 16.3 H (13.2-15.2) % Creatinine 0.6 L (0.7-1.2) mg/dL Glucose 117 H (65-100) mg/dL POC Glucose 118 H (70-105) Calcium 7.9 L (8.4-10.2) mg/dL Crossmatch
[2018-09-23] MEDS: PROTONIX IV SCH (10:43)
--- NOTE | 2018-09-23 10:57 | Progress Note ---
Assessment and Plan Assessment and plan: 38 YO Female with HTN, DM, Obesity presents to ED by EMS for evaluation of abdomen over the past 2 days with worsening symptoms over the past 1 day. Pt seen and evaluated in ED and underwent CT Abdomen/Pelvis which revealed free air with suspected perforation complicated by peritonitis. Surgery team consulted in ED and emergently taken to the OR. Pt initiated on IV antibiotic therapy and admitted to IMCU. Purulent peritonitis and pelvic abscess with bowel perforation - due to perforated diverticulitis - Status post exploratory laparotomy with abdominal wash out and drain placement on 09/14 - Continue iv antibiotics, IV pain medications, - patient had abdominal pain and repeat CT Abd on 09/20 revealed pelvic abscess. Exploratory lap done 09/20/18 revealed perforation in the sigmoid colon with free fecal matter, fecal peritonitis. Abdominal wash out, sigmoid resection with Cherelle's pouch was done. Increased Morphine to 4mg iv q 3prn TPN for nutrition Anemia Hgb 8.1 Transfused 1 unit PRBC Repeat H/H in am Sepsis due to peritonitis and bowel perforation, pelvis abscess present on admission - Continue IV antibiotics, follow surgical culture - continue metronidazole, Ceftriaxone fluconazole Diabetes mellitus type 2 uncontrolled - SSI every 6 hour, A1C 10.3 Hypertension, continue on on clonidine patch and labetalol IV as needed Hypocalcemia, repleted calcium, Hypoalbuminemia, due to poor oral intake and sepsis - Continue to monitor and treat underlying condition Hypocalcemia, replete and monitor, Hypomagnesemia. Repleted DVT prophylaxis, Lovenox History Interval history: Abd pain improved Hospitalist Physical - Physical exam Narrative exam: Gen: Not in acute distress, lying in bed, obese HEENT: Normocephalic, atraumatic Neck: supple, no JVD Heart: S1 and S2 reg, no murmurs, rubs or gallop Lungs: Clear, no crackles, no wheeze Abd: soft, mild tender, covered with dressing, ostomy present Ext: No edema, no clubbing, no cyanosis, Neuro: Awake,alert, moves all ext, non focal - Constitutional Vitals: Temp Pulse Resp BP Pulse Ox 98.1 F 102 H 18 181/110 95 09/23/18 07:39 09/23/18 07:39 09/23/18 07:39 09/23/18 07:39 09/23/18 07:39 General appearance: Present: obese Results - Labs CBC & Chem 7: 09/23/18 07:56 09/23/18 07:51 Labs: Laboratory Last Values WBC 22.9 K/mm3 (4.5-11.0) H 09/23/18 07:56 RBC 2.60 M/mm3 (3.65-5.03) L 09/23/18 07:56 Hgb 8.1 gm/dl (10.1-14.3) L 09/23/18 07:56 Hct 24.5 % (30.3-42.9) L 09/23/18 07:56 MCV 94 fl (79-97) 09/23/18 07:56 MCH 31 pg (28-32) 09/23/18 07:56 MCHC 33 % (30-34) 09/23/18 07:56 RDW 16.3 % (13.2-15.2) H 09/23/18 07:56 Plt Count 382 K/mm3 (140-440) 09/23/18 07:56 Lymph % (Auto) Topographical Surveyor 09/19/18 05:16 [place] % (Auto) Topographical Surveyor 09/19/18 05:16 Eos % (Auto) Topographical Surveyor 09/19/18 05:16 Baso % (Auto) Topographical Surveyor 09/19/18 05:16 Lymph # Topographical Surveyor 09/19/18 05:16 [place] # Topographical Surveyor 09/19/18 05:16 Eos # Topographical Surveyor 09/19/18 05:16 Baso # Topographical Surveyor 09/19/18 05:16 Add Manual Diff Complete 09/19/18 05:16 Total Counted 100 09/19/18 05:16 Seg Neutrophils % Topographical Surveyor 09/19/18 05:16 Seg Neuts % (Manual) 75.0 % (40.0-70.0) H 09/19/18 05:16 0 % 09/19/18 05:16 13.0 % (13.4-35.0) L 09/19/18 05:16 Reactive Lymphs % (Man) 0 % 09/19/18 05:16 2.0 % (0.0-7.3) 09/19/18 05:16 1.0 % (0.0-4.3) 09/19/18 05:16 0 % (0.0-1.8) 09/19/18 05:16 4.0 % 09/19/18 05:16 2.0 % 09/19/18 05:16 3.0 % 09/19/18 05:16 0 % 09/19/18 05:16 Nucleated RBC % 1.0 % (0.0-0.9) H 09/19/18 05:16 Seg Neutrophils # Topographical Surveyor 09/19/18 05:16 Seg Neutrophils # Man 12.2 K/mm3 (1.8-7.7) H 09/19/18 05:16 Band Neutrophils # 0.0 K/mm3 09/19/18 05:16 2.1 K/mm3 (1.2-5.4) 09/19/18 05:16 Abs React Lymphs (Man) 0.0 K/mm3 09/19/18 05:16 0.3 K/mm3 (0.0-0.8) 09/19/18 05:16 0.2 K/mm3 (0.0-0.4) 09/19/18 05:16 0.0 K/mm3 (0.0-0.1) 09/19/18 05:16 0.6 K/mm3 09/19/18 05:16 0.3 K/mm3 09/19/18 05:16 0.5 K/mm3 09/19/18 05:16 Blast Cells # 0.0 K/mm3 09/19/18 05:16 WBC Morphology Not Reportable 09/19/18 05:16 WBC Morphology TNR 09/19/18 05:16 Hypersegmented Neuts Not Reportable 09/19/18 05:16 Hyposegmented Neuts Not Reportable 09/19/18 05:16 Hypogranular Neuts Not Reportable 09/19/18 05:16 Not Reportable 09/19/18 05:16 Not Reportable 09/19/18 05:16 Not Reportable 09/19/18 05:16 Not Reportable 09/19/18 05:16 Not Reportable 09/19/18 05:16 Not Reportable 09/19/18 05:16 Consistent w auto 09/19/18 05:16 Not Reportable 09/19/18 05:16 Plt Clumps, EDTA Not Reportable 09/19/18 05:16 Not Reportable 09/19/18 05:16 Not Reportable 09/19/18 05:16 Not Reportable 09/19/18 05:16 Plt Morphology Comment Not Reportable 09/19/18 05:16 RBC Morphology Not Reportable 09/19/18 05:16 Dimorphic RBCs Not Reportable 09/19/18 05:16 Not Reportable 09/19/18 05:16 Few 09/19/18 05:16 Not Reportable 09/19/18 05:16 Few 09/19/18 05:16 Not Reportable 09/19/18 05:16 Not Reportable 09/19/18 05:16 Not Reportable 09/19/18 05:16 Not Reportable 09/19/18 05:16 Not Reportable 09/19/18 05:16 Rare 09/19/18 05:16 Not Reportable 09/19/18 05:16 Not Reportable 09/19/18 05:16 Not Reportable 09/19/18 05:16 Not Reportable 09/19/18 05:16 Not Reportable 09/19/18 05:16 Not Reportable 09/19/18 05:16 Not Reportable 09/19/18 05:16 Not Reportable 09/19/18 05:16 Not Reportable 09/19/18 05:16 Acanthocytes (Spur) Not Reportable 09/19/18 05:16 Rouleaux Not Reportable 09/19/18 05:16 Not Reportable 09/19/18 05:16 Not Reportable 09/19/18 05:16 Not Reportable 09/19/18 05:16 Not Reportable 09/19/18 05:16 Hem Pathologist Commnt Sent to pathology 09/19/18 05:16 Sodium 138 mmol/L (137-145) 09/23/18 07:51 Potassium 4.2 mmol/L (3.6-5.0) 09/23/18 07:51 Chloride 103.5 mmol/L (98-107) 09/23/18 07:51 Carbon Dioxide 23 mmol/L (22-30) 09/23/18 07:51 16 mmol/L 09/23/18 07:51 BUN 12 mg/dL (7-17) 09/23/18 07:51 0.6 mg/dL (0.7-1.2) L 09/23/18 07:51 Estimated GFR > 60 ml/min 09/23/18 07:51 20 % 09/23/18 07:51 Glucose 117 mg/dL (65-100) H 09/23/18 07:51 POC Glucose 118 (70-105) H 09/23/18 00:06 10.3 % (4-6) H 09/15/18 Unknown Lactic Acid 1.60 mmol/L (0.7-2.0) 09/15/18 11:48 Calcium 7.9 mg/dL (8.4-10.2) L 09/23/18 07:51 Phosphorus 2.90 mg/dL (2.5-4.5) 09/23/18 07:51 Magnesium 1.80 mg/dL (1.7-2.3) 09/23/18 07:51 3.30 mg/dL (0.1-1.2) H 09/15/18 02:30 AST 322 units/L (5-40) H 09/15/18 02:30 ALT 169 units/L (7-56) H 09/15/18 02:30 67 units/L (35-129) 09/15/18 02:30 5.4 g/dL (6.3-8.2) L 09/15/18 02:30 2.0 g/dL (3.9-5) L 09/15/18 02:30 0.6 % 09/15/18 02:30 Triglycerides 260 mg/dL (2-149) H 09/22/18 04:41 HCG, Qual Negative (Negative) 09/14/18 12:06 Blood Type O POSITIVE 09/20/18 13:55 Antibody Screen Negative 09/20/18 13:55 Crossmatch See Detail 09/20/18 13:55 Active Medications - Current Medications Current Medications: Generic Name Dose Route Start Last Admin Trade Name Freq PRN Reason Stop Dose Admin Acetaminophen/Hydrocodone Bitart 7.5 mg 09/23/18 00:15 Josephine PO Q4H PRN Pain, Moderate (4-6) Albuterol 2.5 mg 09/14/18 15:57 Proventil IH Q3HRT PRN Shortness Of Breath Clonidine HCl 0.2 mg 09/15/18 14:00 09/22/18 18:19 Catapres-Tts Patch TD 0.2 mg QWEEK AYLEEN Administration Dextrose 50 ml 09/14/18 15:59 D50w (25gm) Syringe IV PRN PRN Hypoglycemia Diphenhydramine HCl 25 mg 09/23/18 00:16 Banophen PO Q6H PRN Itching; sleep Hydralazine HCl 10 mg 09/18/18 12:34 09/23/18 06:01 Apresoline IV 10 mg Q30MIN PRN Administration Hypertension > 180/100 Hydromorphone HCl 0.5 mg 09/21/18 13:00 09/23/18 05:09 Dilaudid IV 0.5 mg Q3H PRN Administration Pain , Severe (7-10) Metronidazole 500 mg in 100 mls @ 100 mls/hr 09/14/18 22:00 09/23/18 05:23 Flagyl 500 Mg/100 Ml IV 100 mls/hr Q8HR AYLEEN Administration Protocol Fluconazole 200 mls @ 100 mls/hr 09/18/18 10:00 09/22/18 12:42 Diflucan IV 100 mls/hr Q24HR AYLEEN Administration Protocol Sodium Chloride 1,000 mls @ 42 mls/hr 09/21/18 10:00 Nacl 0.9% 1000 Ml IV DIRECT AYLEEN Ceftriaxone Sodium 2 gm in 100 mls @ 200 mls/hr 09/22/18 10:00 09/22/18 09:55 Rocephin/Ns 2 Gm/100 Ml IV 200 mls/hr Q24HR AYLEEN Administration Protocol Amino Acids/Electrolytes/Dextrose 2,400 mls @ 100 mls/hr 09/22/18 20:00 09/23/18 01:43 Tpn Adult IV 09/23/18 19:59 Not Given DAILY@1999 [facility] Protocol Insulin Human Isoph/Insulin Regular 10 unit 09/21/18 14:00 09/22/18 18:18 Humulin 70/30 SUB-Q 10 unit BIDDIAB AYLEEN Administration Insulin Human Lispro 0 unit 09/14/18 18:00 09/23/18 09:02 Humalog SUB-Q Not Given Q6HR [facility] Protocol Labetalol HCl 10 mg 09/15/18 13:05 09/18/18 14:16 Normodyne IV 10 mg Q4H PRN Administration Hypertension Lorazepam 1 mg 09/15/18 09:30 09/20/18 21:47 Ativan IV 1 mg Q4H PRN Administration Agitation Morphine Sulfate 2 mg 09/21/18 13:00 09/23/18 08:48 Morphine IV 2 mg Q3H PRN Administration Pain, Moderate (4-6) Naloxone HCl 0.1 mg 09/21/18 11:54 Narcan 0.4 Mg/1 Ml IV Q2MIN PRN Res Rate </= 8 or 02 SAT < 92% Ondansetron HCl 4 mg 09/15/18 07:25 09/23/18 05:10 Zofran IV 4 mg Q4H PRN Administration Nausea And Vomiting Pantoprazole Sodium 40 mg 09/16/18 16:00 09/22/18 10:25 Protonix IV Not Given QDAY AYLEEN Sodium Chloride 10 ml 09/14/18 15:57 09/21/18 10:35 Sodium Chloride Flush Syringe 10 Ml IV 10 ml PRN PRN Administration LINE FLUSH Sucralfate 1 gm 09/22/18 12:00 09/23/18 07:12 Carafate PO Not Given Q6HR [facility] Nutrition/Malnutrition Assess - Dietary Evaluation Nutrition/Malnutrition Findings: Nutrition Notes Start: 09/18/18 09:34 Freq: Status: Active Protocol: Document 09/22/18 14:03 RM (Rec: 09/22/18 14:08 [id number]) Nutrition Notes Initial or Follow up Reassessment Current Diagnosis Diabetes,Hypertension Other Pertinent Diagnosis Purulent peritonitis sec to perforated diverticulitis s/p colectomy Current Diet Clear liquid + PPN at 100 ml/ hr Labs/Tests K 4.5 Mg 2.2 (trending up) Pertinent Medications Reviewed Height 5 ft 2 in Weight 91.7 kg [place] Body Weight (kg) 50.00 BMI 36.9 Subjective/Other Information PPN day 5. Pt stated that she is trying to take it slow w/her diet and that she has been drinking the tea and eating ice chips. Also stated that she does not like the amount of sweet foods on the clear liquid diet. Riding Instructor explained that most foods on the diet are sweet and suggested that pt focus on drinking at least one item from tray. Pt denied food allergies. Burn Absent Trauma Absent #1 Nutrition Diagnosis Altered GI function Diagnosis Progress(for reassessment Continues documentation) Is patient on ventilator? No Is Patient Ambulatory and/or Out of Bed Yes REE-(Steele-St. Jeor-ambulatory/OOB) [ 2015.325 NUTR.MSJOOB] Kcal/Kg value to use for calculation 17 Approximate Energy Requirements Using 1559 kcal/Kg Calculation Used for Recommendations Kcal/kg Additional Notes Pro needs 1.2-1.5g/kg adjBW: 84-105g/day Fluid needs 1ml/kcal Nutrition Intervention Nutrition Support: PPN at 100 ml/hr: 10 mEq Mg, MVI Kcal 676 Protein (gm) 84 Carbohydrates (gm) 100 Fat (gm) 0 Fluid (mL) 2,400 Fiber (gm) 0 Goal #1 PN to meet energy and pro needs as best possible Goal #2 BG control Anticipated Discharge Needs: Unable to determine at this time Follow-Up By: 09/23/18 Additional Comments Follow for labs in AM: BMP, Mg , Phos
[2018-09-23] MEDS: DIFLUCAN 200 ML IV SCH (11:42)
--- NOTE | 2018-09-23 13:10 | Progress Note ---
Assessment and Plan - Patient Problems (1) Perforated bowel Current Visit: Yes Status: Acute Plan to address problem: 38 yo F s/p exploratory laparotomy, Angel's procedure POD 3 POD#9 s/p ex lap for purulent peritonitis due to suspected perforated sigmoid Plan: 1. neuro - prn pain control. 2. CV - Hb 8.1. too high for 1u PRBC. Probably more like 7. 3. Resp - IS, pulm toilet, encouraged patient to get out of bed and ambulate. 4. GI - Did well with clears and clamped NGT. Removed NGT. Try full liquids. Will hold here until bowel function resumes. Pt states that she does not want anymore clears; d/c IVF. TPN. PPI. wound consult for ostomy teaching. Quyen drain - monitor output. Await bowel function. Incision looks good. Will continue with Xeroform packing for now. 5. - dc lopez. Staff reports that patient did not allow removal of urinary assist device. I told the patient she must get up to the bathroom. 6. Endo - monitor blood glucose, SS coverage as needed 7. ID - on ceftriaxone and flagyl per ID 8. Musc - DVT ppx - hold heparin as Hgb was down and NGT has reddish appearance. Check in AM. If stable, may restart heparin/lovenox. PT consult 9. FEN - continue TPN and BMP daily. replace lytes as needed Of note, the patient asked if she could rest today. I explained to her that everything I told her today were my recommendations for her to get better. It is up to her if she wishes to do the incentive spirometry, ambulate, remove the catheter, etc. No one will force her to do these things. However, the more she does, the faster she will recover and be able to go home. However, I explained that the choice was hers. -- Nurses were present in the room during this discussion. Subjective Date of service: 09/23/18 Patient Reports: Positive: pain is less, tolerating liquids well, no flatus, no bowel movement, other (had difficult night with staff). Negative: nausea, vomiting Objective Vital Signs - 12hr 09/23/18 09/23/18 09/23/18 01:29 05:27 06:01 Temperature Pulse Rate 98 H 98 H Respiratory 17 18 Rate Blood Pressure 191/118 191/118 O2 Sat by Pulse 96 Oximetry 09/23/18 09/23/18 07:39 11:38 Temperature 98.1 F 97.9 F Pulse Rate 102 H 98 H Respiratory 18 18 Rate Blood Pressure 181/110 178/117 O2 Sat by Pulse 95 96 Oximetry - General physical appearance no distress, no pain, other (looks better) - Eyes normal occular movement - Respiratory normal expansion, normal respiratory effort - Abdomen soft, tender (minimal), not distended, not guarding, not rigid, surgical scars (Clear and dry. No purulent drainage. No erythema. Packing removed and replaced. QUYEN with serosang drainage. Ostomy pink. thin edge of black tissue on the medial aspect. No air or stool in bag) - Integumentary no rash, no growths, no abnormal pigmentation - Psychiatric oriented to time, oriented to person, oriented to place, speech is normal, memory intact - Labs 09/23/18 07:56 09/23/18 07:51 Diabetes panel 09/23/18 Range/Units 07:51 Sodium 138 (137-145) mmol/L Potassium 4.2 (3.6-5.0) mmol/L Chloride 103.5 (98-107) mmol/L Carbon Dioxide 23 (22-30) mmol/L BUN 12 (7-17) mg/dL Creatinine 0.6 L (0.7-1.2) mg/dL Glucose 117 H (65-100) mg/dL Calcium 7.9 L (8.4-10.2) mg/dL Calcium panel 09/23/18 Range/Units 07:51 Calcium 7.9 L (8.4-10.2) mg/dL Phosphorus 2.90 (2.5-4.5) mg/dL Pituitary panel 09/23/18 Range/Units 07:51 Sodium 138 (137-145) mmol/L Potassium 4.2 (3.6-5.0) mmol/L Chloride 103.5 (98-107) mmol/L Carbon Dioxide 23 (22-30) mmol/L BUN 12 (7-17) mg/dL Creatinine 0.6 L (0.7-1.2) mg/dL Glucose 117 H (65-100) mg/dL Calcium 7.9 L (8.4-10.2) mg/dL Adrenal panel 09/23/18 Range/Units 07:51 Sodium 138 (137-145) mmol/L Potassium 4.2 (3.6-5.0) mmol/L Chloride 103.5 (98-107) mmol/L Carbon Dioxide 23 (22-30) mmol/L BUN 12 (7-17) mg/dL Creatinine 0.6 L (0.7-1.2) mg/dL Glucose 117 H (65-100) mg/dL Calcium 7.9 L (8.4-10.2) mg/dL
[2018-09-23] MEDS ORDERED: TPN ADULT 2,400 ML IV SCH ×2 (20:00)
[2018-09-24] MEDS: CARAFATE PO SCH ×7 (01:00→23:52)
[2018-09-24] MEDS: DILAUDID IV PRN ×5 (01:00→23:53)
[2018-09-24] MEDS: APRESOLINE IV PRN ×2 (01:03→11:35)
[2018-09-24] MEDS: HumaLOG SUB-Q SCH ×3 (01:03→17:55)
[2018-09-24 04:55] LABS: Hematocrit 22.9 % (30.3-42.9); Hemoglobin 7.5 gm/dl (10.1-14.3); Mean Corpuscular HGB Conc 33 % (30-34); Mean Corpuscular Volume 95 fl (79-97); Platelet Count 396 K/mm3 (140-440); Red Blood Count 2.42 M/mm3 (3.65-5.03); Red Cell Distribution Width 16.4 % (13.2-15.2)
[2018-09-24] MEDS: FLAGYL 500 MG/100 ML 500 MG/100 ML BAG IV SCH ×3 (05:44→21:53)
[2018-09-24 08:27] LABS: Basophils % (Manual) 0 % (0.0-1.8); Total Cells Counted 100
[2018-09-24 08:28] LABS: Anisocytosis 1+; Eosinophils % (Manual) 0 % (0.0-4.3); Macrocytosis 1+; Platelet Estimate Consistent w Auto
[2018-09-24] MEDS: ROCEPHIN/NS 2 GM/100 ML 2 GM/100 ML BAG IV SCH (09:18)
[2018-09-24] MEDS: DIFLUCAN 200 ML IV SCH (10:00)
[2018-09-24] MEDS: PROTONIX IV SCH (11:18)
--- NOTE | 2018-09-24 12:13 | Progress Note ---
Assessment and Plan Assessment and plan: 38 YO Female with HTN, DM, Obesity presents to ED by EMS for evaluation of abdomen over the past 2 days with worsening symptoms over the past 1 day. Pt seen and evaluated in ED and underwent CT Abdomen/Pelvis which revealed free air with suspected perforation complicated by peritonitis. Surgery team consulted in ED and emergently taken to the OR. Pt initiated on IV antibiotic therapy and admitted to [facility], now ytransferred to Surgical floor Purulent peritonitis and pelvic abscess with bowel perforation - due to perforated diverticulitis - Status post exploratory laparotomy with abdominal wash out and drain placement on 09/14 - Continue iv antibiotics, IV pain medications, - patient had abdominal pain and repeat CT Abd on 09/20 revealed pelvic abscess. Exploratory lap done 09/20/18 revealed perforation in the sigmoid colon with free fecal matter, fecal peritonitis. Abdominal wash out, sigmoid resection with Cherelle's pouch was done. Increased Morphine to 4mg iv q 3prn TPN discontinued started on liquid diet Anemia Transfused 1 unit PRBC Repeat H/H in am Sepsis due to peritonitis and bowel perforation, pelvis abscess present on admission - Continue IV antibiotics, follow surgical culture - continue metronidazole, Ceftriaxone fluconazole Diabetes mellitus type 2 uncontrolled - SSI every 6 hour, A1C 10.3 Hypertension, continue on on clonidine patch and labetalol IV as needed Hypocalcemia, repleted calcium, Hypoalbuminemia, due to poor oral intake and sepsis - Continue to monitor and treat underlying condition Hypocalcemia, replete and monitor, Hypomagnesemia. Repleted DVT prophylaxis, Lovenox History Interval history: Abd pain improved NG tube is out On liquid diet Hospitalist Physical - Physical exam Narrative exam: Gen: Not in acute distress, lying in bed, obese HEENT: Normocephalic, atraumatic Neck: supple, no JVD Heart: S1 and S2 reg, no murmurs, rubs or gallop Lungs: Clear, no crackles, no wheeze Abd: soft, mild tender, covered with dressing, ostomy present Ext: No edema, no clubbing, no cyanosis, Neuro: Awake,alert, moves all ext, non focal - Constitutional Vitals: Temp Pulse Resp BP Pulse Ox 98.0 F 97 H 18 167/111 98 09/24/18 11:21 09/24/18 11:21 09/24/18 11:21 09/24/18 11:35 09/24/18 11:21 General appearance: Present: obese Results - Labs CBC & Chem 7: 09/24/18 04:14 09/23/18 07:51 Labs: Laboratory Last Values WBC 19.3 K/mm3 (4.5-11.0) H 09/24/18 04:14 RBC 2.42 M/mm3 (3.65-5.03) L 09/24/18 04:14 Hgb 7.5 gm/dl (10.1-14.3) L 09/24/18 04:14 Hct 22.9 % (30.3-42.9) L 09/24/18 04:14 MCV 95 fl (79-97) 09/24/18 04:14 MCH 31 pg (28-32) 09/24/18 04:14 MCHC 33 % (30-34) 09/24/18 04:14 RDW 16.4 % (13.2-15.2) H 09/24/18 04:14 Plt Count 396 K/mm3 (140-440) 09/24/18 04:14 Lymph % (Auto) [employer] 09/24/18 04:14 [place] % (Auto) [employer] 09/24/18 04:14 Eos % (Auto) [employer] 09/24/18 04:14 Baso % (Auto) [employer] 09/24/18 04:14 Lymph # [employer] 09/24/18 04:14 [place] # [employer] 09/24/18 04:14 Eos # [employer] 09/24/18 04:14 Baso # [employer] 09/24/18 04:14 Add Manual Diff Complete 09/24/18 04:14 Total Counted 100 09/24/18 04:14 Seg Neutrophils % [employer] 09/24/18 04:14 Seg Neuts % (Manual) 89.0 % (40.0-70.0) H 09/24/18 04:14 0 % 09/24/18 04:14 9.0 % (13.4-35.0) L 09/24/18 04:14 Reactive Lymphs % (Man) 0 % 09/24/18 04:14 2.0 % (0.0-7.3) 09/24/18 04:14 0 % (0.0-4.3) 09/24/18 04:14 0 % (0.0-1.8) 09/24/18 04:14 0 % 09/24/18 04:14 0 % 09/24/18 04:14 0 % 09/24/18 04:14 0 % 09/24/18 04:14 Nucleated RBC % Not Reportable 09/24/18 04:14 Seg Neutrophils # [employer] 09/24/18 04:14 Seg Neutrophils # Man 17.2 K/mm3 (1.8-7.7) H 09/24/18 04:14 Band Neutrophils # 0.0 K/mm3 09/24/18 04:14 1.7 K/mm3 (1.2-5.4) 09/24/18 04:14 Abs React Lymphs (Man) 0.0 K/mm3 09/24/18 04:14 0.4 K/mm3 (0.0-0.8) 09/24/18 04:14 0.0 K/mm3 (0.0-0.4) 09/24/18 04:14 0.0 K/mm3 (0.0-0.1) 09/24/18 04:14 0.0 K/mm3 09/24/18 04:14 0.0 K/mm3 09/24/18 04:14 0.0 K/mm3 09/24/18 04:14 Blast Cells # 0.0 K/mm3 09/24/18 04:14 WBC Morphology Not Reportable 09/24/18 04:14 Hypersegmented Neuts Not Reportable 09/24/18 04:14 Hyposegmented Neuts Not Reportable 09/24/18 04:14 Hypogranular Neuts Not Reportable 09/24/18 04:14 Not Reportable 09/24/18 04:14 Not Reportable 09/24/18 04:14 Not Reportable 09/24/18 04:14 Not Reportable 09/24/18 04:14 Not Reportable 09/24/18 04:14 Not Reportable 09/24/18 04:14 Consistent w auto 09/24/18 04:14 Not Reportable 09/24/18 04:14 Plt Clumps, EDTA Not Reportable 09/24/18 04:14 Not Reportable 09/24/18 04:14 Not Reportable 09/24/18 04:14 Not Reportable 09/24/18 04:14 Plt Morphology Comment Not Reportable 09/24/18 04:14 RBC Morphology Not Reportable 09/24/18 04:14 Dimorphic RBCs Not Reportable 09/24/18 04:14 Few 09/24/18 04:14 Not Reportable 09/24/18 04:14 Not Reportable 09/24/18 04:14 1+ 09/24/18 04:14 Not Reportable 09/24/18 04:14 1+ 09/24/18 04:14 Not Reportable 09/24/18 04:14 Not Reportable 09/24/18 04:14 Not Reportable 09/24/18 04:14 Not Reportable 09/24/18 04:14 Not Reportable 09/24/18 04:14 Not Reportable 09/24/18 04:14 Not Reportable 09/24/18 04:14 Not Reportable 09/24/18 04:14 Not Reportable 09/24/18 04:14 Not Reportable 09/24/18 04:14 Not Reportable 09/24/18 04:14 Not Reportable 09/24/18 04:14 Not Reportable 09/24/18 04:14 Acanthocytes (Spur) Not Reportable 09/24/18 04:14 Rouleaux Not Reportable 09/24/18 04:14 Not Reportable 09/24/18 04:14 Not Reportable 09/24/18 04:14 Not Reportable 09/24/18 04:14 Not Reportable 09/24/18 04:14 Hem Pathologist Commnt No 09/24/18 04:14 Sodium 138 mmol/L (137-145) 09/23/18 07:51 Potassium 4.2 mmol/L (3.6-5.0) 09/23/18 07:51 Chloride 103.5 mmol/L (98-107) 09/23/18 07:51 Carbon Dioxide 23 mmol/L (22-30) 09/23/18 07:51 16 mmol/L 09/23/18 07:51 BUN 12 mg/dL (7-17) 09/23/18 07:51 0.6 mg/dL (0.7-1.2) L 09/23/18 07:51 Estimated GFR > 60 ml/min 09/23/18 07:51 20 % 09/23/18 07:51 Glucose 117 mg/dL (65-100) H 09/23/18 07:51 POC Glucose 150 (70-105) H 09/24/18 12:04 10.3 % (4-6) H 09/15/18 Unknown Lactic Acid 1.60 mmol/L (0.7-2.0) 09/15/18 11:48 Calcium 7.9 mg/dL (8.4-10.2) L 09/23/18 07:51 Phosphorus 2.90 mg/dL (2.5-4.5) 09/23/18 07:51 Magnesium 1.80 mg/dL (1.7-2.3) 09/23/18 07:51 3.30 mg/dL (0.1-1.2) H 09/15/18 02:30 AST 322 units/L (5-40) H 09/15/18 02:30 ALT 169 units/L (7-56) H 09/15/18 02:30 67 units/L (35-129) 09/15/18 02:30 5.4 g/dL (6.3-8.2) L 09/15/18 02:30 2.0 g/dL (3.9-5) L 09/15/18 02:30 0.6 % 09/15/18 02:30 Triglycerides 260 mg/dL (2-149) H 09/22/18 04:41 HCG, Qual Negative (Negative) 09/14/18 12:06 Blood Type O POSITIVE 09/20/18 13:55 Antibody Screen Negative 09/20/18 13:55 Crossmatch See Detail 09/20/18 13:55 Active Medications - Current Medications Current Medications: Generic Name Dose Route Start Last Admin Trade Name Freq PRN Reason Stop Dose Admin Acetaminophen/Hydrocodone Bitart 7.5 mg 09/23/18 00:15 [place] PO Q4H PRN Pain, Moderate (4-6) Albuterol 2.5 mg 09/14/18 15:57 Proventil IH Q3HRT PRN Shortness Of Breath Clonidine HCl 0.2 mg 09/15/18 14:00 09/22/18 18:19 Catapres-Tts Patch TD 0.2 mg QWEEK AYLEEN Administration Dextrose 50 ml 09/14/18 15:59 D50w (25gm) Syringe IV PRN PRN Hypoglycemia Diphenhydramine HCl 25 mg 09/23/18 00:16 Banophen PO Q6H PRN Itching; sleep Hydralazine HCl 10 mg 09/18/18 12:34 09/24/18 11:35 Apresoline IV 10 mg Q30MIN PRN Administration Hypertension > 180/100 Hydralazine HCl 20 mg 09/24/18 12:12 Apresoline IV Q4HR PRN SBP>170 or DBP>110 Hydromorphone HCl 0.5 mg 09/21/18 13:00 09/24/18 11:19 Dilaudid IV 0.5 mg Q3H PRN Administration Pain , Severe (7-10) Metronidazole 500 mg in 100 mls @ 100 mls/hr 09/14/18 22:00 09/24/18 05:44 Flagyl 500 Mg/100 Ml IV 100 mls/hr Q8HR AYLEEN Administration Protocol Fluconazole 200 mls @ 100 mls/hr 09/18/18 10:00 09/24/18 10:00 Diflucan IV 100 mls/hr Q24HR AYLEEN Administration Protocol Ceftriaxone Sodium 2 gm in 100 mls @ 200 mls/hr 09/22/18 10:00 09/24/18 09:18 Rocephin/Ns 2 Gm/100 Ml IV 200 mls/hr Q24HR AYLEEN Administration Protocol Amino Acids/Electrolytes/Dextrose 2,400 mls @ 100 mls/hr 09/23/18 20:00 09/23/18 20:43 Tpn Adult IV Not Given DAILY@1999 [facility] Protocol Insulin Human Isoph/Insulin Regular 10 unit 09/21/18 14:00 09/24/18 08:03 Humulin 70/30 SUB-Q 10 unit BIDDIAB AYLEEN Administration Insulin Human Lispro 0 unit 09/14/18 18:00 09/24/18 01:03 Humalog SUB-Q Not Given Q6HR [facility] Protocol Labetalol HCl 10 mg 09/15/18 13:05 09/18/18 14:16 Normodyne IV 10 mg Q4H PRN Administration Hypertension Lorazepam 1 mg 09/15/18 09:30 09/20/18 21:47 Ativan IV 1 mg Q4H PRN Administration Agitation Morphine Sulfate 2 mg 09/21/18 13:00 09/23/18 08:48 Morphine IV 2 mg Q3H PRN Administration Pain, Moderate (4-6) Naloxone HCl 0.1 mg 09/21/18 11:54 Narcan 0.4 Mg/1 Ml IV Q2MIN PRN Res Rate </= 8 or 02 SAT < 92% Ondansetron HCl 4 mg 09/15/18 07:25 09/23/18 05:10 Zofran IV 4 mg Q4H PRN Administration Nausea And Vomiting Pantoprazole Sodium 40 mg 09/16/18 16:00 09/24/18 11:18 Protonix IV 40 mg QDAY AYLEEN Administration Sodium Chloride 10 ml 09/14/18 15:57 09/21/18 10:35 Sodium Chloride Flush Syringe 10 Ml IV 10 ml PRN PRN Administration LINE FLUSH Sucralfate 1 gm 09/22/18 12:00 09/24/18 05:45 Carafate PO Not Given Q6HR [facility] Nutrition/Malnutrition Assess - Dietary Evaluation Nutrition/Malnutrition Findings: Nutrition Notes Start: 09/18/18 09:34 Freq: Status: Active Protocol: Document 09/23/18 15:55 RM (Rec: 09/23/18 16:02 RM [id number]) Nutrition Notes Initial or Follow up Reassessment Current Diagnosis Diabetes,Hypertension Other Pertinent Diagnosis Purulent peritonitis sec to perforated diverticulitis s/p colectomy Current Diet Full liquid + PPN at 100 ml/hr Labs/Tests K 4.2 Mg 1.8 Pertinent Medications Reviewed Height 5 ft 2 in Weight 91.7 kg [place] Body Weight (kg) 50.00 BMI 36.9 Subjective/Other Information PPN day 6. Clear liquid diet in place earlier today. Full liquid diet ordered later. Pt stated that she drank her tea and broth today. Pt denied egg allergy but stated that they give her gas. Percent of energy/protein needs met: 43%/100% Burn Absent Trauma Absent #1 Nutrition Diagnosis Altered GI function Diagnosis Progress(for reassessment Continues documentation) Is patient on ventilator? No Is Patient Ambulatory and/or Out of Bed Yes REE-([facility]-ambulatory/OOB) [ 2015.325 NUTR.[id number]] Kcal/Kg value to use for calculation 17 Approximate Energy Requirements Using 1559 kcal/Kg Calculation Used for Recommendations Kcal/kg Additional Notes Pro needs 1.2-1.5g/kg adjBW: 84-105g/day Fluid needs 1ml/kcal Nutrition Intervention Nutrition Support: PPN at 100 ml/hr: 5.2% dextrose, 13 mEq Mg, MVI Kcal 761 Protein (gm) 84 Carbohydrates (gm) 125 Fat (gm) 0 Fluid (mL) 2,400 Fiber (gm) 0 Add Supplement/Snack (indicate name/kcal Glucerna Chocolate, Vanilla 1 /protein ) daily Provides kCal: 220 Provides Protein (gm) 10 Goal #1 PN and intakes to meet energy and pro needs as best possible Goal #2 BG control Anticipated Discharge Needs: Unable to determine at this time Follow-Up By: 09/24/18 Additional Comments Follow for labs in AM: BMP, Mg , Phos
--- NOTE | 2018-09-24 13:42 | Progress Note ---
Assessment and Plan 38 yo F s/p exploratory laparotomy, Angel's procedure POD 4 POD#10 s/p ex lap for purulent peritonitis due to suspected perforated sigmoid Plan: 1. prn PO pain control with IV for breakthrough only 2. adv to soft diet, glucerna supplements TID 3. Quyen drain - monitor output. Likely dc before going home 4. dc TPN 5. c/w IV abx per ID - today is day 4 of 5 6. ostomy nurse consult for ostomy care teaching 7. OOB/ambulate 8. Hb improved s/p transfusion - will restart hep SQ 9. may transition patient to oral medications - d/w Dr. Black 10. IS/pulm toilet Patient doing better today and more motivated. Anticipate dc in next 48 hours. Thank you, please call with questions. Subjective Date of service: 09/24/18 Narrative: Pt seen and examined. No f/c. Tolerating full liquid diet. No n/v. Ostomy is working. She c/o mild pain at incision especially when getting out of bed. She has been ambulating to and from bathroom as well as in hallways. She is trying to work on IS. Objective Vital Signs - 12hr 09/24/18 09/24/18 09/24/18 03:53 08:00 11:00 Temperature 97.3 F L 98 F 97.9 F Pulse Rate 96 H 91 H 98 H Respiratory 18 18 20 Rate Blood Pressure 162/111 Blood Pressure 149/99 169/111 [Right] O2 Sat by Pulse 94 97 96 Oximetry 09/24/18 09/24/18 11:21 11:35 Temperature 98.0 F Pulse Rate 97 H Respiratory 18 Rate Blood Pressure 167/111 167/111 Blood Pressure [Right] O2 Sat by Pulse 98 Oximetry - General physical appearance Narrative Exam: Gen: AAOx3. NAD CV: s1, S2+ Resp: even and unlabored. 500cc on IS Abd: soft, ND, mild TTP near midline incision. Packing removed. Wound cleaned and covered with coversite dressing. Ostomy appliance leaking. Entire ostomy appliance removed and skin cleansed. Ostomy pink with some surrounding blood clot which was removed. No active bleeding. Ostomy edematous but pink. Stool in bag. Skin prep applied and new ostomy appliance cut and applied. QUYEN drain serous. New drain dressing applied. NO r/r/g Ext: no c/c/e - Labs 09/24/18 04:14 09/23/18 07:51
[2018-09-24] MEDS: HEPARIN SUB-Q SCH ×2 (16:19→21:54)
[2018-09-24] MEDS: NORVASC PO SCH (16:36)
[2018-09-24] MEDS: ZESTRIL PO SCH (16:36)
[2018-09-24] MEDS: ATIVAN IV PRN (21:54)
[2018-09-25] MEDS: HumaLOG SUB-Q SCH ×5 (01:55→18:30)
[2018-09-25] MEDS: HEPARIN SUB-Q SCH ×3 (05:35→21:35)
[2018-09-25] MEDS: CARAFATE PO SCH ×3 (05:35→17:57)
[2018-09-25] MEDS: FLAGYL 500 MG/100 ML 500 MG/100 ML BAG IV SCH ×3 (05:35→21:35)
[2018-09-25] MEDS: DILAUDID IV PRN ×4 (05:35→20:22)
[2018-09-25] MEDS: NORVASC PO SCH (09:12)
[2018-09-25] MEDS: ROCEPHIN/NS 2 GM/100 ML 2 GM/100 ML BAG IV SCH (09:12)
[2018-09-25] MEDS: ZESTRIL PO SCH (09:12)
[2018-09-25] MEDS: PROTONIX IV SCH (09:12)
[2018-09-25] MEDS: DIFLUCAN 200 ML IV SCH (09:13)
[2018-09-25] MEDS: APRESOLINE IV PRN ×2 (13:48→14:48)
--- NOTE | 2018-09-25 14:03 | Progress Note ---
Assessment and Plan 38 yo F s/p exploratory laparotomy, Angel's procedure POD 5 POD#11 s/p ex lap for purulent peritonitis due to suspected perforated sigmoid Plan: 1. prn PO pain control with IV for breakthrough only 2. soft diet, glucerna supplements TID 3. Quyen drain - monitor output. Likely dc before going home 4. c/w IV abx per ID - today is day 5 of 5 5. ostomy nurse consult for ostomy care teaching 6. OOB/ambulate 7. Hb improved s/p transfusion - repeat CBC in am tomorrow 8. SQ heparin for DVT ppx 9. IS/pulm toilet Anticipate dc tomorrow. Thank you, please call with questions. Subjective Date of service: 09/25/18 Narrative: Pt seen and examined. No acute complaints. Has done some ostomy care on her own with nursing. Feels good. Tolerating diet. No f/c Objective Vital Signs - 12hr 09/25/18 09/25/18 09/25/18 05:12 07:41 10:11 Temperature 98.2 F 97.7 F Pulse Rate 90 103 H Respiratory 16 18 20 Rate Blood Pressure 159/106 164/103 O2 Sat by Pulse 100 98 Oximetry 09/25/18 12:40 Temperature 98.3 F Pulse Rate 90 Respiratory 18 Rate Blood Pressure 151/111 O2 Sat by Pulse 97 Oximetry - General physical appearance Narrative Exam: Gen: AAOx3. NAD CV: S1, S2+ resp: even and unlabored Abd: soft, NT, ND. dressing c/d/i. Ostomy pink with brown stool in bag. QUYEN drain with scant serous drainage Ext: 1+ pitting edema of feet b/l - Labs 09/24/18 04:14 09/23/18 07:51
--- NOTE | 2018-09-25 17:34 | Progress Note ---
Assessment and Plan Assessment and plan: 38 YO Female with HTN, DM, Obesity presents to ED by EMS for evaluation of abdomen over the past 2 days with worsening symptoms over the past 1 day. Pt seen and evaluated in ED and underwent CT Abdomen/Pelvis which revealed free air with suspected perforation complicated by peritonitis. Surgery team consulted in ED and emergently taken to the OR. Pt initiated on IV antibiotic therapy and admitted to IMCU, now transferred to Surgical floor Purulent peritonitis and pelvic abscess with bowel perforation - due to perforated diverticulitis - Status post exploratory laparotomy with abdominal wash out and drain placement on 09/14 - Continue iv antibiotics, IV pain medications, - patient had abdominal pain and repeat CT Abd on 09/20 revealed pelvic abscess. Exploratory lap done 09/20/18 revealed perforation in the sigmoid colon with free fecal matter, fecal peritonitis. Abdominal wash out, sigmoid resection with Cherelle's pouch was done. Increased Morphine to 4mg iv q 3prn TPN discontinued started on liquid diet Anemia Transfused 1 unit PRBC Sepsis due to peritonitis and bowel perforation, pelvis abscess present on admission - Continue IV antibiotics, follow surgical culture - continue metronidazole, Ceftriaxone fluconazole Diabetes mellitus type 2 uncontrolled - SSI every 6 hour, A1C 10.3 Hypertension, continue on on clonidine patch and labetalol IV as needed Hypocalcemia, repleted calcium, Hypoalbuminemia, due to poor oral intake and sepsis - Continue to monitor and treat underlying condition Hypocalcemia, replete and monitor, Hypomagnesemia. Repleted DVT prophylaxis, Lovenox Discussed with Surgeon. Poss dc home tomorrow. History Interval history: Abd pain improved NG tube is out On liquid diet Hospitalist Physical - Physical exam Narrative exam: Gen: Not in acute distress, lying in bed, obese HEENT: Normocephalic, atraumatic Neck: supple, no JVD Heart: S1 and S2 reg, no murmurs, rubs or gallop Lungs: Clear, no crackles, no wheeze Abd: soft, mild tender, covered with dressing, ostomy present Ext: No edema, no clubbing, no cyanosis, Neuro: Awake,alert, moves all ext, non focal - Constitutional Vitals: Temp Pulse Resp BP Pulse Ox 98.4 F 88 18 139/85 98 09/25/18 16:06 09/25/18 16:05 09/25/18 16:06 09/25/18 16:06 09/25/18 16:05 General appearance: Present: obese Results - Labs CBC & Chem 7: 09/24/18 04:14 09/23/18 07:51 Labs: Laboratory Last Values WBC 19.3 K/mm3 (4.5-11.0) H 09/24/18 04:14 RBC 2.42 M/mm3 (3.65-5.03) L 09/24/18 04:14 Hgb 7.5 gm/dl (10.1-14.3) L 09/24/18 04:14 Hct 22.9 % (30.3-42.9) L 09/24/18 04:14 MCV 95 fl (79-97) 09/24/18 04:14 MCH 31 pg (28-32) 09/24/18 04:14 MCHC 33 % (30-34) 09/24/18 04:14 RDW 16.4 % (13.2-15.2) H 09/24/18 04:14 Plt Count 396 K/mm3 (140-440) 09/24/18 04:14 Lymph % (Auto) [employer] 09/24/18 04:14 [place] % (Auto) [employer] 09/24/18 04:14 Eos % (Auto) [employer] 09/24/18 04:14 Baso % (Auto) [employer] 09/24/18 04:14 Lymph # [employer] 09/24/18 04:14 [place] # [employer] 09/24/18 04:14 Eos # [employer] 09/24/18 04:14 Baso # [employer] 09/24/18 04:14 Add Manual Diff Complete 09/24/18 04:14 Total Counted 100 09/24/18 04:14 Seg Neutrophils % [employer] 09/24/18 04:14 Seg Neuts % (Manual) 89.0 % (40.0-70.0) H 09/24/18 04:14 0 % 09/24/18 04:14 9.0 % (13.4-35.0) L 09/24/18 04:14 Reactive Lymphs % (Man) 0 % 09/24/18 04:14 2.0 % (0.0-7.3) 09/24/18 04:14 0 % (0.0-4.3) 09/24/18 04:14 0 % (0.0-1.8) 09/24/18 04:14 0 % 09/24/18 04:14 0 % 09/24/18 04:14 0 % 09/24/18 04:14 0 % 09/24/18 04:14 Nucleated RBC % Not Reportable 09/24/18 04:14 Seg Neutrophils # [employer] 09/24/18 04:14 Seg Neutrophils # Man 17.2 K/mm3 (1.8-7.7) H 09/24/18 04:14 Band Neutrophils # 0.0 K/mm3 09/24/18 04:14 1.7 K/mm3 (1.2-5.4) 09/24/18 04:14 Abs React Lymphs (Man) 0.0 K/mm3 09/24/18 04:14 0.4 K/mm3 (0.0-0.8) 09/24/18 04:14 0.0 K/mm3 (0.0-0.4) 09/24/18 04:14 0.0 K/mm3 (0.0-0.1) 09/24/18 04:14 0.0 K/mm3 09/24/18 04:14 0.0 K/mm3 09/24/18 04:14 0.0 K/mm3 09/24/18 04:14 Blast Cells # 0.0 K/mm3 09/24/18 04:14 WBC Morphology Not Reportable 09/24/18 04:14 Hypersegmented Neuts Not Reportable 09/24/18 04:14 Hyposegmented Neuts Not Reportable 09/24/18 04:14 Hypogranular Neuts Not Reportable 09/24/18 04:14 Not Reportable 09/24/18 04:14 Not Reportable 09/24/18 04:14 Not Reportable 09/24/18 04:14 Not Reportable 09/24/18 04:14 Not Reportable 09/24/18 04:14 Not Reportable 09/24/18 04:14 Consistent w auto 09/24/18 04:14 Not Reportable 09/24/18 04:14 Plt Clumps, EDTA Not Reportable 09/24/18 04:14 Not Reportable 09/24/18 04:14 Not Reportable 09/24/18 04:14 Not Reportable 09/24/18 04:14 Plt Morphology Comment Not Reportable 09/24/18 04:14 RBC Morphology Not Reportable 09/24/18 04:14 Dimorphic RBCs Not Reportable 09/24/18 04:14 Few 09/24/18 04:14 Not Reportable 09/24/18 04:14 Not Reportable 09/24/18 04:14 1+ 09/24/18 04:14 Not Reportable 09/24/18 04:14 1+ 09/24/18 04:14 Not Reportable 09/24/18 04:14 Not Reportable 09/24/18 04:14 Not Reportable 09/24/18 04:14 Not Reportable 09/24/18 04:14 Not Reportable 09/24/18 04:14 Not Reportable 09/24/18 04:14 Not Reportable 09/24/18 04:14 Not Reportable 09/24/18 04:14 Not Reportable 09/24/18 04:14 Not Reportable 09/24/18 04:14 Not Reportable 09/24/18 04:14 Not Reportable 09/24/18 04:14 Not Reportable 09/24/18 04:14 Acanthocytes (Spur) Not Reportable 09/24/18 04:14 Rouleaux Not Reportable 09/24/18 04:14 Not Reportable 09/24/18 04:14 Not Reportable 09/24/18 04:14 Not Reportable 09/24/18 04:14 Not Reportable 09/24/18 04:14 Hem Pathologist Commnt No 09/24/18 04:14 Sodium 138 mmol/L (137-145) 09/23/18 07:51 Potassium 4.2 mmol/L (3.6-5.0) 09/23/18 07:51 Chloride 103.5 mmol/L (98-107) 09/23/18 07:51 Carbon Dioxide 23 mmol/L (22-30) 09/23/18 07:51 16 mmol/L 09/23/18 07:51 BUN 12 mg/dL (7-17) 09/23/18 07:51 0.6 mg/dL (0.7-1.2) L 09/23/18 07:51 Estimated GFR > 60 ml/min 09/23/18 07:51 20 % 09/23/18 07:51 Glucose 117 mg/dL (65-100) H 09/23/18 07:51 POC Glucose 144 (70-105) H 09/25/18 16:13 10.3 % (4-6) H 09/15/18 Unknown Lactic Acid 1.60 mmol/L (0.7-2.0) 09/15/18 11:48 Calcium 7.9 mg/dL (8.4-10.2) L 09/23/18 07:51 Phosphorus 2.90 mg/dL (2.5-4.5) 09/23/18 07:51 Magnesium 1.80 mg/dL (1.7-2.3) 09/23/18 07:51 3.30 mg/dL (0.1-1.2) H 09/15/18 02:30 AST 322 units/L (5-40) H 09/15/18 02:30 ALT 169 units/L (7-56) H 09/15/18 02:30 67 units/L (35-129) 09/15/18 02:30 5.4 g/dL (6.3-8.2) L 09/15/18 02:30 2.0 g/dL (3.9-5) L 09/15/18 02:30 0.6 % 09/15/18 02:30 Triglycerides 260 mg/dL (2-149) H 09/22/18 04:41 HCG, Qual Negative (Negative) 09/14/18 12:06 Blood Type O POSITIVE 09/20/18 13:55 Antibody Screen Negative 09/20/18 13:55 Crossmatch See Detail 09/20/18 13:55 Active Medications - Current Medications Current Medications: Generic Name Dose Route Start Last Admin Trade Name Freq PRN Reason Stop Dose Admin Acetaminophen/Hydrocodone Bitart 7.5 mg 09/23/18 00:15 Ruth PO Q4H PRN Pain, Moderate (4-6) Albuterol 2.5 mg 09/14/18 15:57 Proventil IH Q3HRT PRN Shortness Of Breath Amlodipine Besylate 5 mg 09/24/18 14:00 09/25/18 09:12 Norvasc PO 5 mg QDAY AYLEEN Administration Clonidine HCl 0.2 mg 09/15/18 14:00 09/22/18 18:19 Catapres-Tts Patch TD 0.2 mg QWEEK AYLEEN Administration Dextrose 50 ml 09/14/18 15:59 D50w (25gm) Syringe IV PRN PRN Hypoglycemia Diphenhydramine HCl 25 mg 09/23/18 00:16 Banophen PO Q6H PRN Itching; sleep Heparin Sodium (Porcine) 5,000 unit 09/24/18 14:00 09/25/18 14:06 Heparin SUB-Q 5,000 unit Q8HR AYLEEN Administration Hydralazine HCl 20 mg 09/24/18 12:12 09/25/18 14:48 Apresoline IV 20 mg Q4H PRN Administration SBP>170 or DBP>110 Hydromorphone HCl 0.5 mg 09/21/18 13:00 09/25/18 15:42 Dilaudid IV 0.5 mg Q3H PRN Administration Pain , Severe (7-10) Metronidazole 500 mg in 100 mls @ 100 mls/hr 09/14/18 22:00 09/25/18 13:49 Flagyl 500 Mg/100 Ml IV 100 mls/hr Q8HR AYLEEN Administration Protocol Fluconazole 200 mls @ 100 mls/hr 09/18/18 10:00 09/25/18 09:13 Diflucan IV 100 mls/hr Q24HR AYLEEN Administration Protocol Ceftriaxone Sodium 2 gm in 100 mls @ 200 mls/hr 09/22/18 10:00 09/25/18 09:12 Rocephin/Ns 2 Gm/100 Ml IV 200 mls/hr Q24HR AYLEEN Administration Protocol Insulin Human Isoph/Insulin Regular 10 unit 09/21/18 14:00 09/25/18 08:54 Humulin 70/30 SUB-Q 10 unit BIDDIAB AYLEEN Administration Insulin Human Lispro 0 unit 09/14/18 18:00 09/25/18 13:48 Humalog SUB-Q 4 unit Q6HR AYLEEN Administration Protocol Lisinopril 20 mg 09/24/18 14:00 09/25/18 09:12 Zestril PO 20 mg QDAY AYLEEN Administration Lorazepam 1 mg 09/15/18 09:30 09/24/18 21:54 Ativan IV 1 mg Q4H PRN Administration Agitation Naloxone HCl 0.1 mg 09/21/18 11:54 Narcan 0.4 Mg/1 Ml IV Q2MIN PRN Res Rate </= 8 or 02 SAT < 92% Ondansetron HCl 4 mg 09/15/18 07:25 09/23/18 05:10 Zofran IV 4 mg Q4H PRN Administration Nausea And Vomiting Pantoprazole Sodium 40 mg 09/26/18 10:00 Protonix PO DAILY AYLEEN Sodium Chloride 10 ml 09/14/18 15:57 09/21/18 10:35 Sodium Chloride Flush Syringe 10 Ml IV 10 ml PRN PRN Administration LINE FLUSH Sucralfate 1 gm 09/22/18 12:00 09/25/18 13:49 Carafate PO 1 gm Q6HR AYLEEN Administration Nutrition/Malnutrition Assess - Dietary Evaluation Nutrition/Malnutrition Findings: Nutrition Notes Start: 09/18/18 09:34 Freq: Status: Active Protocol: Document 09/24/18 12:52 RM (Rec: 09/24/18 13:33 RM [id number]) Nutrition Notes Initial or Follow up Reassessment Current Diagnosis Diabetes,Hypertension Other Pertinent Diagnosis Purulent peritonitis sec to perforated diverticulitis s/p colectomy Current Diet Full liquid w/Glucerna 1 daily Labs/Tests Reviewed Pertinent Medications Reviewed Height 5 ft 2 in Weight 91.7 kg [place] Body Weight (kg) 50.00 BMI 36.9 Subjective/Other Information Previous nurse told current nurse that MD D/C'd PPN yesterday. Pt stated that she is consuming the tea, apple juice , and apple sauce from her meals. Also stated that she drank half of her Glucerna. MD plans to advance pt to solid diet soon. Burn Absent Trauma Absent #1 Nutrition Diagnosis Altered GI function Diagnosis Progress(for reassessment Continues documentation) Is patient on ventilator? No Is Patient Ambulatory and/or Out of Bed Yes REE-([facility]-ambulatory/OOB) [ 2015.325 NUTR.MSJOOB] Kcal/Kg value to use for calculation 17 Approximate Energy Requirements Using 1559 kcal/Kg Calculation Used for Recommendations Kcal/kg Additional Notes Pro needs 1.2-1.5g/kg adjBW: 84-105g/day Fluid needs 1ml/kcal Nutrition Intervention Change Diet Order: Advance diet when medically able Nutrition Support: D/C'd Add Supplement/Snack (indicate name/kcal Glucerna Chocolate, [place] /protein ) BID Provides kCal: 440 Provides Protein (gm) 20 Goal #1 Diet advancement Goal #2 BG control Anticipated Discharge Needs: Unable to determine at this time Follow-Up By: 09/27/18 Additional Comments Follow for diet advancement, PO and ONS intakes
[2018-09-26] MEDS: CARAFATE PO SCH ×3 (01:01→14:07)
[2018-09-26] MEDS: HumaLOG SUB-Q SCH ×3 (01:02→12:38)
[2018-09-26] MEDS: ATIVAN IV PRN (01:02)
[2018-09-26] MEDS: DILAUDID IV PRN ×3 (04:15→12:34)
[2018-09-26] MEDS: FLAGYL 500 MG/100 ML 500 MG/100 ML BAG IV SCH (05:49)
[2018-09-26] MEDS: HEPARIN SUB-Q SCH ×2 (05:50→14:15)
[2018-09-26 06:05] LABS: Hematocrit 22.7 % (30.3-42.9); Hemoglobin 7.6 gm/dl (10.1-14.3); Mean Corpuscular HGB Conc 33 % (30-34); Mean Corpuscular Volume 96 fl (79-97); Platelet Count 459 K/mm3 (140-440); Red Blood Count 2.36 M/mm3 (3.65-5.03); Red Cell Distribution Width 18.4 % (13.2-15.2)
[2018-09-26 06:29] LABS: BUN/Creatinine Ratio 10; Blood Urea Nitrogen 6 mg/dL (7-17); Calcium 7.8 mg/dL (8.4-10.2); Hemolysis Index 8
[2018-09-26] MEDS: ROCEPHIN/NS 2 GM/100 ML 2 GM/100 ML BAG IV SCH (09:30)
[2018-09-26] MEDS: NORVASC PO SCH (09:31)
[2018-09-26] MEDS: ZESTRIL PO SCH (09:32)
[2018-09-26] MEDS ORDERED: PROTONIX PO SCH (10:00)
[2018-09-26] MEDS: DIFLUCAN 200 ML IV SCH (10:05)
--- NOTE | 2018-09-26 10:28 | Progress Note ---
Assessment and Plan Cultures: Blood cultures 09/14/2018 no growth OR culture: rare growth of normal skin [email or web address] Assessment: 38 y/o female with history of diabetes, hypertension and obesity admitted on 09/14/2018 due to 2-week history of abdominal pain, nausea and poor appetite: 1) Sepsis: Resolved. secondary to perforated viscus. Blood cultures 09/14/2018 no growth. 2) Feculent peritonitis and pelvic abscess from perforated sigmoid colon: underwent ex lap with abdominal washout on 09/14/2018, findings 1L free purulent fluid and pelvic abscess cavity, no active perforation. Required another ex lap, ABDOMINAL WASH OUT, SIGMOID RESECTION WITH IRVING'S POUCH on 09/20/2018. 3) Leukemoid reaction: secondary to above. Recommendations: -discontinue Ceftriaxone, Flagyl, Fluconazole - completed antibiotic course -monitor off antibiotics [facility] [employer] [facility] M: [phone] O:[phone] Subjective Date of service: 09/26/18 Interval history: Patient seen and examined. Laying in bed. Reports no generalized pain or weakness. No fever. Objective - Exam Narrative Exam: Constitutional: Alert, cooperative. Mild distress reported Head, Ears, Nose: Normocephalic, atraumatic. External ears, nose normal Eyes: Conjunctivae/corneas clear. No icterus. No ptosis. Neck: Supple, no meningeal signs Cardiovascular: S1, S2 normal. Respiratory: Good air entry, clear to auscultation bilaterally GI: Soft, dressing +, drain +, ostomy +; bowel sounds - Musculoskeletal: No pedal edema, no cyanosis. Skin: No rash or abscess Hem/Lymphatic: No palpable cervical or supraclavicular nodes. No lymphangitis Psych: Mood ok. Affect normal Neurological: Awake, alert, oriented. No gross abnormalit - Constitutional Vitals: Vital Signs Temp Pulse Resp BP Pulse Ox 98.5 F 96 H 18 139/96 98 09/26/18 08:00 09/26/18 09:32 09/26/18 08:00 09/26/18 09:32 09/26/18 08:00 Temperature -Last 24 Hours Temperature 98.5 F Temperature 97.9 F Temperature 98.0 F Temperature 98.6 F Temperature 98.4 F Temperature 98.3 F - Labs CBC & Chem 7: 09/26/18 05:48 09/26/18 05:48 Labs: Abnormal lab results 09/25/18 09/25/18 09/26/18 Range/Units 12:46 16:13 00:14 RBC (3.65-5.03) M/mm3 Hgb (10.1-14.3) gm/dl Hct (30.3-42.9) % RDW (13.2-15.2) % Plt Count (140-440) K/mm3 BUN (7-17) mg/dL Creatinine (0.7-1.2) mg/dL Glucose (65-100) mg/dL POC Glucose 207 H 144 H 164 H (70-105) Calcium (8.4-10.2) mg/dL 09/26/18 09/26/18 09/26/18 Range/Units 05:48 05:48 06:16 RBC 2.36 L (3.65-5.03) M/mm3 Hgb 7.6 L (10.1-14.3) gm/dl Hct 22.7 L (30.3-42.9) % RDW 18.4 H (13.2-15.2) % Plt Count 459 H (140-440) K/mm3 BUN 6 L (7-17) mg/dL Creatinine 0.6 L (0.7-1.2) mg/dL Glucose 170 H (65-100) mg/dL POC Glucose 168 H (70-105) Calcium 7.8 L (8.4-10.2) mg/dL
--- NOTE | 2018-09-26 16:20 | Discharge Summary ---
Providers - Providers Date of Admission: 09/14/18 15:57 Attending physician: JULY COLON 09/14/18 15:14 Consult to Physician [CONS] Urgent Comment: DR MARIA DEL ROSARIO TOLEDO W/DR AYALA @1517 Consulting Provider: BRISEIDA AYALA Physician Instructions: Reason For Exam: free air bowel perf 09/15/18 09:10 Consult to Physician [CONS] Routine Comment: Consulting Provider: VIJAY YEH Physician Instructions: Reason For Exam: purulent peritonitis, perforated diverticulitis 09/15/18 09:12 PICC Line Placement [Consult to PICC Line RN] [CONS] Urgent Reason For Exam: needs usp IV abx Type Line:: Midline 09/17/18 14:10 Consult to Dietitian/Nutrition [CONS] Routine Physician Instructions: Reason For Exam: Reason for Consult: Write/Manage TPN/PPN 09/21/18 12:34 Physical Therapy Evaluation and Treat [CONS] Routine Comment: Reason For Exam: post op 09/24/18 19:00 Consult to Wound/ET Nurse [CONS] Routine Reason For Exam: wound eval [facility] Condition: Stable Disposition: DC-30 STILL A PATIENT Exam - Constitutional Vitals: Temp Pulse Resp BP Pulse Ox 98.0 F 100 H 20 141/93 100 09/26/18 11:45 09/26/18 11:45 09/26/18 11:45 09/26/18 11:45 09/26/18 11:45 Plan Follow up with: [facility] FERNANDA [Primary Care Provider] - 3-5 Days Prescriptions: cloNIDine-TTS PATCH [Catapres-Tts 0.2mg Patch] 0.2 mg TD Th #7 patch HYDROcodone/APAP 7.5-325 [[place] 7.5-325 mg per 15 ML] 7.5 mg PO Q4H PRN #300 ml PRN Reason: Pain, Moderate (4-6) amLODIPine [Norvasc] 5 mg PO QDAY #30 tablet Lisinopril [Zestril TAB] 20 mg PO QDAY #30 tablet
--- NOTE | 2018-09-26 16:27 | Progress Note ---
Assessment and Plan POD#6 s/p hartmans procedure for perforated sigmoid colon, stable, afebrile, normalized labs and vital signs, tolerating diet. recovering well. drain removed. Pt says she is comfortable with ostomy care. she is to make an appointment to see Dr. Gipson next week no later than [id number]. [phone] diabetes and htn to continue to be followed and managed by PCP. Subjective Date of service: 09/26/18 Patient Reports: Positive: feels better, tolerating a regular diet (no acute events), bowel movement Objective Vital Signs - 12hr 09/26/18 09/26/18 09/26/18 04:45 08:00 09:31 Temperature 98.5 F Pulse Rate 96 H 96 H Respiratory 20 18 Rate Blood Pressure 139/96 Blood Pressure 139/96 [Right] O2 Sat by Pulse 98 Oximetry 09/26/18 09/26/18 09:32 11:45 Temperature 98.0 F Pulse Rate 96 H 100 H Respiratory 20 Rate Blood Pressure 139/96 141/93 Blood Pressure [Right] O2 Sat by Pulse 100 Oximetry - General physical appearance well developed, no distress - Respiratory normal expansion, normal respiratory effort - Abdomen soft, other (midline wound intact with widely spaced marilin, small amount of serous fluid, ostomy is pink. drain with minimal SS fluid. appropriatley tender to palpation) - Labs 09/26/18 05:48 09/26/18 05:48 Diabetes panel 09/26/18 Range/Units 05:48 Sodium 137 (137-145) mmol/L Potassium 3.8 (3.6-5.0) mmol/L Chloride 106.2 (98-107) mmol/L Carbon Dioxide 24 (22-30) mmol/L BUN 6 L (7-17) mg/dL Creatinine 0.6 L (0.7-1.2) mg/dL Glucose 170 H (65-100) mg/dL Calcium 7.8 L (8.4-10.2) mg/dL Calcium panel 09/26/18 Range/Units 05:48 Calcium 7.8 L (8.4-10.2) mg/dL Pituitary panel 09/26/18 Range/Units 05:48 Sodium 137 (137-145) mmol/L Potassium 3.8 (3.6-5.0) mmol/L Chloride 106.2 (98-107) mmol/L Carbon Dioxide 24 (22-30) mmol/L BUN 6 L (7-17) mg/dL Creatinine 0.6 L (0.7-1.2) mg/dL Glucose 170 H (65-100) mg/dL Calcium 7.8 L (8.4-10.2) mg/dL Adrenal panel 09/26/18 Range/Units 05:48 Sodium 137 (137-145) mmol/L Potassium 3.8 (3.6-5.0) mmol/L Chloride 106.2 (98-107) mmol/L Carbon Dioxide 24 (22-30) mmol/L BUN 6 L (7-17) mg/dL Creatinine 0.6 L (0.7-1.2) mg/dL Glucose 170 H (65-100) mg/dL Calcium 7.8 L (8.4-10.2) mg/dL
--- NOTE | 2018-09-26 16:32 | Discharge Summary ---
Providers - Providers Date of Admission: 09/14/18 15:57 Date of discharge: 09/26/18 Attending physician: JULY COLON 09/14/18 15:14 Consult to Physician [CONS] Urgent Comment: DR MARIA DEL ROSARIO TOLEDO W/DR GIPSON @1517 Consulting Provider: BRISEIDA GIPSON Physician Instructions: Reason For Exam: free air bowel perf 09/15/18 09:10 Consult to Physician [CONS] Routine Comment: Consulting Provider: VIJAY YEH Physician Instructions: Reason For Exam: purulent peritonitis, perforated diverticulitis 09/15/18 09:12 PICC Line Placement [Consult to PICC Line RN] [CONS] Urgent Reason For Exam: needs senior living IV abx Type Line:: Midline 09/17/18 14:10 Consult to Dietitian/Nutrition [CONS] Routine Physician Instructions: Reason For Exam: Reason for Consult: Write/Manage TPN/PPN 09/21/18 12:34 Physical Therapy Evaluation and Treat [CONS] Routine Comment: Reason For Exam: post op 09/24/18 19:00 Consult to Wound/ET Nurse [CONS] Routine Reason For Exam: wound eval [facility]: Fair Hospital course: Patient is 38 YO Female with hypertension, diabetes, Obesity presented to Emergency Department for evaluation of abdominal pain over the 2 days with worsening symptoms over 1 day. She was seen and evaluated in ED and underwent CT Abdomen/Pelvis which revealed free air with suspected perforation complicated by peritonitis. Surgery team consulted in ED and emergently taken to the OR and surgery done. Pt initiated on IV antibiotic therapy and admitted to IMCU. Patient had more abd pain few days later and repeat CT Abd revealed pelvic abscess so was taken to OR again. Post-operatively improved slowly and was subsequently discharged home on 09/26/18 Purulent peritonitis and pelvic abscess with bowel perforation - due to perforated diverticulitis - Status post exploratory laparotomy with abdominal wash out and drain placement on 09/14 - Continue iv antibiotics, IV pain medications, - patient had abdominal pain and repeat CT Abd on 09/20 revealed pelvic abscess. Exploratory lap done 09/20/18 revealed perforation in the sigmoid colon with free fecal matter, fecal peritonitis. Abdominal wash out, sigmoid resection with Cherelle's pouch was done. Anemia Transfused 1 unit PRBC Sepsis due to peritonitis and bowel perforation, pelvis abscess present on admission - Treated with IV antibiotics, metronidazole, Ceftriaxone fluconazole Diabetes mellitus type 2 uncontrolled - SSI every 6 hour, A1C 10.3 Hypertension, continue on on clonidine patch and labetalol IV as needed Hypocalcemia, repleted calcium, Hypoalbuminemia, due to poor oral intake and sepsis - Continue to monitor and treat underlying condition Hypocalcemia, replete and monitor, Hypomagnesemia. Repleted DVT prophylaxis, Lovenox Total time spent on discharge, 48 mins Disposition: TO HOME OR SELFCARE - Discharge Diagnoses (1) Sepsis Status: Acute (2) Pelvic abscess in female Status: Acute (3) Diabetes Status: Acute (4) HTN (hypertension) Status: Acute Qualifiers: Hypertension type: essential hypertension Qualified Code(s): I10 - Essential (primary) hypertension (5) Perforated bowel Status: Acute (6) Peritonitis (acute) generalized Status: Acute (7) Status post exploratory laparotomy Status: Acute Core Measure Documentation - Palliative Care Palliative Care/ Comfort Measures: Not Applicable - Core Measures Any of the following diagnoses?: none Exam - Constitutional Vitals: Temp Pulse Resp BP Pulse Ox 98.0 F 100 H 20 141/93 100 09/26/18 11:45 09/26/18 11:45 09/26/18 11:45 09/26/18 11:45 09/26/18 11:45 Plan Diet: other (GI soft diet,cardiac,diabetic diet) Additional Instructions: 1.Follow up with PCP in 1 week. 2.Follow up with Surgeon, Dr. Gipson in 1 week Follow up with: [facility] FERNANDA [Primary Care Provider] - 3-5 Days Prescriptions: HYDROcodone/APAP 7.5-325 [[place] 7.5-325 mg per 15 ML] 7.5 mg PO Q4H PRN #300 ml PRN Reason: Pain, Moderate (4-6) amLODIPine [Norvasc] 5 mg PO QDAY #30 tablet Pantoprazole [Protonix TAB] 40 mg PO DAILY #30 tablet
[2018-09-26 17:30] VITALS: BP 149/95
[2018-09-29] MEDS ORDERED: CATAPRES-TTS PATCH TD SCH (11:00)
== END 2018-09-26 17:10 | disposition home or self-care (01) | DRG 853 ==
LOC: ED 11:40 → IMCU 15:57 → CC1 09-20 19:30 → 3B-SURG 09-21 17:52
PROVIDERS: ADMIT Internal Medicine; ATTEND Internal Medicine
PROC: 0W9G00Z Drainage of Peritoneal Cavity with Drainage Device, Open Approach (ICD-10-PCS; principal; 2018-09-14)
PROC: 05HY33Z Insertion of Infusion Device into Upper Vein, Percutaneous Approach (ICD-10-PCS; 2018-09-17)
PROC: 0DBN0ZZ Excision of Sigmoid Colon, Open Approach (ICD-10-PCS; 2018-09-20)
PROC: 0D1N0Z4 Bypass Sigmoid Colon to Cutaneous, Open Approach (ICD-10-PCS; 2018-09-20)
PROC: 30233N1 Transfusion of Nonautologous Red Blood Cells into Peripheral Vein, Percutaneous Approach (ICD-10-PCS; 2018-09-22)
DX: A41.9 Sepsis, unspecified organism (principal); K65.0 Generalized (acute) peritonitis; K57.80 Diverticulitis of intestine, part unspecified, with perforation and abscess without bleeding; I10 Essential (primary) hypertension; E11.65 Type 2 diabetes mellitus with hyperglycemia; E66.9 Obesity, unspecified; F41.9 Anxiety disorder, unspecified; N73.9 Female pelvic inflammatory disease, unspecified; E83.51 Hypocalcemia; E88.09 Other disorders of plasma-protein metabolism, not elsewhere classified; D72.823 Leukemoid reaction; D64.9 Anemia, unspecified; F12.90 Cannabis use, unspecified, uncomplicated; Z68.37 Body mass index [BMI] 37.0-37.9, adult; Z89.021 Acquired absence of right finger(s); Z82.49 Family history of ischemic heart disease and other diseases of the circulatory system; Z83.3 Family history of diabetes mellitus; Z72.89 Other problems related to lifestyle; Z79.899 Other long term (current) drug therapy; Z80.9 Family history of malignant neoplasm, unspecified
CPT/HCPCS: 36415; 74176; 74177; 80048; 80053; 82140; 82962; 83036; 83735; 84100; 84478; 84703; 85007; 85025; 85027; 86850; 86900; 86901; 86920; 87040; 87075; 87116; 88307; 88309; 93005; 93010; 94760; 99291; G0378; C9113; J0330; J0360; J0610; J0692; J0696; J1100; J1170; J1450; J1644; J1815; J1885; J2060; J2270; J2370; J2405; J2543; J2704; J2710; J3010; J3475; J3480; J7030; J7040; J7050; P9016; P9047; Q0163; Q9967

== ENCOUNTER 2021-04-16 10:54 | Outpatient (CLI) | payer BC ==
[2021-04-16 11:55] LABS: Blood Urea Nitrogen 14 mg/dL (7-17)
--- NOTE | 2021-04-16 13:01 | Cat Scan Report ---
CT ABDOMEN AND PELVIS WITH CONTRAST INDICATION / CLINICAL INFORMATION: diverticulosis of large intestine w/o perforation or abscess w/o b leeding 100 ml omni 300 . TECHNIQUE: Axial CT images were obtained through the abdomen and pelvis after IV contrast. All CT sc ans at this location are performed using CT dose reduction for ALARA by means of automated exposure c ontrol. COMPARISON: None available. FINDINGS: LOWER CHEST: 2.8 x 1.6 x 3.0 cm cystic lesion in the posterior mediastinum adjacent to esophagus on s eries 2 image 13 and coronal image 82 with Hounsfield unit measuring fluid. There are atelectatic josh nges in the right lung base. LIVER: Diffuse hepatic steatosis. No focal liver lesion. There is fatty sparing in the gallbladder fo ssa. GALLBLADDER: No significant abnormality. BILE DUCTS: No significant abnormality. PANCREAS: No significant abnormality. SPLEEN: No significant abnormality. ADRENALS: No significant abnormality. RIGHT KIDNEY / URETER: No significant abnormality. LEFT KIDNEY / URETER: No significant abnormality. STOMACH / SMALL BOWEL: Tiny hiatal hernia. Small bowel is nondilated. COLON: Left lower quadrant colostomy is present. No acute inflammation. There is a parastomal hernia containing fat. Rectal stump appears normal. APPENDIX: No significant abnormality. PERITONEUM: No free fluid. No free air. No fluid collection. LYMPH NODES: No significant adenopathy. AORTA / ARTERIES: No significant abnormality. IVC / VEINS: No significant abnormality. URINARY BLADDER: No significant abnormality. REPRODUCTIVE ORGANS: No significant abnormality. ADDITIONAL FINDINGS: None. SKELETAL SYSTEM: No significant abnormality. IMPRESSION: 1. 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 Rectal stump appears normal. No acute inflammation. 2. Hepatic steatosis. 3. 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 Signer Name: Preston Reagan MD Signed: 04/16/2021 12:57 PM Workstation Name: [email or web address]
== END 2021-04-16 10:55 | disposition home or self-care (01) ==
LOC: CT 10:54
PROVIDERS: ATTEND Surgery
DX: K76.0 Fatty (change of) liver, not elsewhere classified (principal); K57.30 Diverticulosis of large intestine without perforation or abscess without bleeding; K44.9 Diaphragmatic hernia without obstruction or gangrene; J98.11 Atelectasis; Z93.3 Colostomy status
CPT/HCPCS: 36415; 74177; 82565; 84520; Q9967